=== PATIENT | female | born 1950 | race Caucasian/White ===

== ENCOUNTER 2017-01-01 17:20 | Inpatient (IN) | payer OTHER ==
[~2017-01-01] VITALS: Ht 162.6 cm; Wt 82.0 kg
[2017-01-01 19:00] VITALS: PULSE 96
[2017-01-01] MEDS ORDERED: traMADol 50 MG TAB PO ONE (20:00)
[2017-01-01] MEDS ORDERED: TRAM50TA2 PO (20:16)
[2017-01-01] MEDS ORDERED: NAPR220C2 PO (20:16)
[2017-01-01] MEDS ORDERED: ATOR20TA38 PO (20:16)
[2017-01-01 20:19] VITALS: PULSE 95
[2017-01-01 20:29] VITALS: BP 132/60; RESP 18
[2017-01-01] MEDS ORDERED: ACETAMINOPHEN 325 MG TAB PO PRN (21:00)
[2017-01-01] MEDS ORDERED: ONDANSETRON 4 MG INJ IV PRN (21:00)
[2017-01-01] MEDS ORDERED: traMADol 50 MG TAB PO PRN (21:00)
--- NOTE | 2017-01-01 21:29 | HP ---
Date/Time of Note Date/Time of Note DATE: 01/01/17 TIME: 21:05 Assessment/Plan VTE Prophylaxis VTE Prophylaxis Intervention: SCD's Assessment/Plan Chief Complaint/Hosp Course This is a 66-year-old female being admitted to the telemetry floor for: #1 symptomatic anemia: Repeat hemoglobin at our facility shows hemoglobin of 6.1. Patient is agreeable to receive a blood transfusion she understands the risks and benefits. The current time will transfuse 1 unit of packed red blood cells. She denies any vaginal bleeding or any rectal bleeding. Will order fecal occult blood. Will check iron panel. Will order a CAT scan of the chest with and without contrast secondary to patient's previous extensive smoking history and 40 pound weight loss as well as history of squamous cell skin cancer to workup for possible primary versus metastatic CA. Will consider GI/ hematology consult as indicated. Repeat hgb in the AM. #2 lung consolidations: Pneumonia versus other etiology. Patient did have elevated white blood cell count but no fevers. At the current time we will treat for possible pneumonia as indicated on the chest x-ray that was in the transfer facility. Will also order a CAT scan with and without contrast to further assess patient's lung morphology in the setting of #1 and history of 30 pack year smoking history. #3 sciatica: Patient reports that she is noticed back pain down right leg she has been taking tramadol for this and naproxen. Will hold naproxen at this time secondary to #1. This has been going on for approximately 3 months. Will order lumbar x-ray and consider further imaging if indicated as there is concern for possible CA based on #1. #4 history of squamous cell carcinoma of skin: no signs on skin at this time, please see #1. #5 Lower extremity edema: check echo #6 DVT and GI prophylaxis: SCDs, Pepcid Further treatment strategy will be implemented as per the clinical course Problems: HPI/ROS Admit Date/Time Admit Date/Time Jan 01, 2017 at 18:36 Hx of Present Illness Chief complaint: Low hemoglobin This is a 66-year-old female who presented to the emergency department [facility] and found to have low hemoglobin. She was subsequently transferred to [facility]. She reported that she had generalized weakness for approximately the past month. She states that she usually has her labs done every 3 months to monitor her liver function tests as she is taking Lipitor. She states that 3 months ago she was not told she had any abnormal hemoglobin. She states that she has had a decreased appetite over the past 3 months and has lost approximately 40 pounds. She attributes her low appetite to her low hemoglobin. She denies any vaginal bleeding or rectal bleeding. Denies any chest pain or shortness of breath. Denies any fevers. Denies ever having a colonoscopy or endoscopy done. Allergies: NKDA Medications: Naproxen, tramadol, Lipitor ROS Const: As per HPI Eyes : No pain discharge or redness or change in visual acuity ENT: No pain, sore throat, congestion, congestion, dysphagia or discharge Respiratory: Mild nonproductive cough Cardiovascular: No chest pain, palpitation, PND, or edema GI : no change in appetite, abdominal pain, nausea, vomiting, diarrhea, constipation, or change in the color his stool Genitourinary: No dysuria, hematuria, flank pain , discharge or CVA tenderness Musculoskeletal: No joint pain, back pain, neck pain, restricted range of motion in neck or joints Skin: No rash, bruising or hives Neuro: No headache, dizziness, syncope, seizure, focal weakness Endocrine: No polyuria, polydipsia, temperature intolerance Psych: No hallucination, depression, anxiety or suicidal ideation Hematology: Denies any vaginal bleeding or rectal bleeding, denies any enlarged lymph nodes PMH/Family/Social Past Medical History Squamous cell skin cancer of the right leg, sciatica Past Surgical History Squamous cell skin cancer removal, vocal cord lymph node removal Family History Significant Family History: no pertinent family hx Social History Alcohol Use: none Smoking Status: Current every day smoker (1 pack per day 30 years) Drug Use: none Exam/Review of Systems Vital Signs Vitals Vital Signs Date Time Temp Pulse Resp B/P Pulse Ox O2 Delivery O2 Flow Rate FiO2 01/01/17 20:29 98.4 91 18 132/60 95 Exam Exam General: Patient is well-developed well-nourished The patient is alert oriented -3 lying comfortably in bed. HEENT: Atraumatic, normocephalic. The pupils are equal, round and reactive. Extraocular motor are intact Neck: Supple with full range of motion. No rigidity or meningismus Chest: Nontender Lungs: Clear to auscultation bilaterally no crackles rales or wheezing Heart: Normal S1-S2, Regular rhythm and rate. No murmur, S3, or S4 Abdomen: Soft , nontender, nondistended , bowel sounds are present. No guarding no rebound tenderness , No masses or organomegaly. No costovertebral temporal angle mass Extremities: Normal to inspection, no edema no cyanosis Neurologic: Normal mental status, speech normal, cranial nerves II through XII are intact, motor and sensory are intact, no focal weakness, of note patient does appear to have repetitive facial tics Additional Comments Pertinent laboratory findings from transferring facility below, please see full report in the patient's chart. Hemoglobin 6.4, hematocrit 21.9 white blood cell count 13.1, platelet count 543 BMP within normal values. Chest x-ray: Left perihilar and right Basilar consolidation may relate to multifocal pneumonia EKG: Normal sinus rhythm at approximately [address] or T-wave abnormalities, as per ED physician documentation. Labs Result Diagram: 01/01/172025 ALO PARKINSON Jan 01, 2017 21:19
[2017-01-01] MEDS: FAMOTIDINE 20 MG TAB PO SCH (22:08)
[2017-01-01] MEDS: LEVOFLOXACIN 750MG/D5W (PMX) 150 ML IVPB SCH (22:08)
[2017-01-01 22:20] VITALS: Ht 162.6 cm; Wt 82.0 kg
[2017-01-01] MEDS: HYDROCODONE/APAP (5/325) TAB PO PRN (23:59)
[2017-01-02] VITALS (11 sets, daily range): BP systolic 114–140; BP diastolic 57–68; PULSE 90–105; RESP 18–20
[2017-01-02] MEDS: ATORVASTATIN 20 MG TAB PO SCH (08:33)
[2017-01-02] MEDS: FAMOTIDINE 20 MG TAB PO SCH ×2 (08:33→21:00)
[2017-01-02] MEDS: HYDROCODONE/APAP (5/325) TAB PO PRN ×3 (08:33→18:33)
[2017-01-02] MEDS ORDERED: IOHEXOL 300MG/ML 150 ML BTL ONE (09:27)
[2017-01-02] MEDS ORDERED: SOD CHLORIDE 0.9% 100 ML ONE (09:27)
--- NOTE | 2017-01-02 11:08 | RADRPT ---
PROCEDURE: CT Chest with contrast. CLINICAL INDICATION: Anemia, weight loss, infiltrates on chest x-ray TECHNIQUE: CT of the chest was performed on a multi-detector scanner following the uncomplicated I V administration of 90 cc of Omnipaque 300. Coronal and sagittal images were reformatted from the a [facility] data set. One or more of the following dose reduction techniques were used: automated exposure control, adjustment of the mA and/or kV according to patient size, use of iterative reconstruction technique. CTDI = 15.03 mGy. DLP = 623.18 mGy-cm. COMPARISON: None available FINDINGS: Indeterminate reticulonodular opacities are identified at the bilateral lung bases and in the medial left upper lobe. 1.6 cm nodule is identified in the perihilar left upper lobe as well (3-37). There is trace amount of left pleural fluid. No pulmonary edema or pneumothorax is identified. There is m oderate pulmonary emphysema. Bilateral bronchial wall thickening and ectasia is noted, compatible wi th chronic bronchitis. The heart size is normal, without pericardial effusion. Coronary arterial and aortic atherosclerotic calcifications are present. Enlarged subaortic/left perihilar lymph node is identified measuring 3. 6 x 2.2 cm (3-52). No axillary or supraclavicular lymphadenopathy is identified. Left adrenal gland demonstrates a 2.3 cm nodule. Lytic lesion is identified arising from L2 vertebra l body on the right, extending into adjacent paravertebral soft tissues. Additional smaller lytic le cheo is seen involving T6 vertebral body, extending into the right pedicle. There is severe compress ion fracture of T2 - underlying osseous lesion is not excluded. Additional lytic lesions are seen in volving right first rib anteriorly, left third rib anteriorly, left seventh rib laterally, and infer ior left scapular tip. Scattered solid subcutaneous nodules are identified measuring up to 1.6 cm in the upper left back (3-28). IMPRESSION: 1. 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 There is acute to subacute sever e compression fracture of T2, possibly pathologic fracture. 2. Indeterminate reticulonodular pulmonary opacities are identified bilaterally, possibly represent ing bronchiolitis/bronchopneumonia, though lymphangitic spread of tumor is not excluded. 3. Enlarged subaortic/left perihilar lymph node is identified, likely additional metastatic disease . 4. Left adrenal nodule/mass is identified, further concerning for metastatic disease. 5. Scattered solid subcutaneous nodules are identified, further concerning for metastatic disease. 6. Moderate pulmonary emphysema and findings of chronic bronchitis are identified. 7. Coronary arterial and aortic atherosclerotic calcifications are present. RPTAT: AAQQ .Ezequiel Polanco MD, MD Date Time Electronically viewed and signed by .Ezequiel Polanco MD, on 01/02/2017 11:07 .R/
[2017-01-02] MEDS ORDERED: SOD CHLORIDE 0.9% 250 ML IV* ONE (11:49)
--- NOTE | 2017-01-02 11:59 | PN ---
Date/Time of Note Date/Time of Note DATE: 01/02/17 TIME: 11:59 Assessment/Plan VTE Prophylaxis VTE Prophylaxis Intervention: SCD's Lines/Catheters IV C[facility]ter Type (from [facility] Urinary Cath still in place: No Assessment/Plan Chief Complaint/Hosp Course 1. Symptomatic anemia. Etiology unclear. Iron panel showing iron deficiency. Start iron supplements. Status post PRBC transfusion. Continue PRBC transfusions as appropriate. The patient's CT scan showing evidence of numerous lytic lesions along with left adrenal nodule/mass, enlarged subaortic and left perihilar lymph nodes suggestive of metastatic disease. Obtain oncology evaluation. 2. Intermediate reticulonodular pulmonary opacities suggesting bronchiolitis/ bronchopneumonia. Continue antibiotics. 3. Pulmonary emphysema. The patient is a chronic smoker. Will start the patient on as needed inhaled bronchodilators. 4. Acute to subacute severe compression fracture of T2. Possibly pathological fracture. The patient will be provided with adequate pain control. Obtain neurosurgical evaluation. 5. Fluids, electrolytes, and nutrition. Regular diet. 6. DVT prophylaxis. Bilateral sequential compression devices. 7. Plan. Transfuse 1 more unit of PRBC. Start IV iron supplements. Obtain oncology consult. Obtain neurosurgery consult. Case discussed with Dr. Bobby. The plan of care was explained to the patient in detail. Problems: Subjective 24 Hr Interval Summary Free Text/Dictation Continues to have lower back pain. Exam/Review of Systems Vital Signs Vitals Vital Signs Date Time Temp Pulse Resp B/P Pulse Ox O2 Delivery O2 Flow Rate FiO2 01/02/17 11:37 98.4 92 19 124/61 96 Intake and Output 01/01/17 01/01/17 01/02/17 15:00 23:00 07:00 Intake Total 1050 ml Balance 1050 ml Exam General: Adequately build 66 year-old female lying in bed in no apparent distress. HEENT: Normocephalic, atraumatic. Eyes: Anicteric sclerae, conjunctivae clear. ENT: Nasal septum midline, oral mucosa moist. Neck supple, no JVD noticed. Respiratory: Bilaterally diminished breath sounds. No use of accessory muscles of respiration. Cardiovascular: S1, S2 heard. No murmurs or gallops. Abdomen: Soft, nontender, and nondistended. Bowel sounds positive in all 4 quadrants. Genitourinary: Deferred. Extremities: No cyanosis, no clubbing, no edema. Peripheral pulses palpable. Neurologic: Cranial nerves II through XII grossly intact. The patient is awake, alert, and oriented. Skin: Normal skin turgor. No skin rashes. Results Result Diagram: 01/02/17 0729 01/02/17 0730 Results 24 hrs Laboratory Tests Test 01/01/17 20:26 01/02/17 07:29 01/02/17 07:30 White Blood Count 13.4 H 13.6 H Red Blood Count 2.36 L 2.71 L Hemoglobin 6.1 *L 7.1 L Hematocrit 20.9 L 23.7 L Mean Corpuscular Volume 88.6 87.5 Mean Corpuscular Hemoglobin 25.8 L 26.2 L Mean Corpuscular Hemoglobin Concent 29.2 L 30.0 L Red Cell Distribution Width 16.2 H 15.8 H Platelet Count 501 H 453 H Mean Platelet Volume 9.4 9.6 Neutrophils % 80.3 H Segmented Neutrophils % (Manual) 79 H Lymphocytes % 10.3 L Lymphocytes % (Manual) 18 Monocytes % 7.9 Monocytes % (Manual) 3 Eosinophils % 0.7 Basophils % 0.1 Nucleated Red Blood Cells % 2 H 1.1 H Neutrophils # 10.9 H Absolute Lymphocytes (Manual) 2.4 Lymphocytes # 1.4 Monocytes # 1.1 H Absolute Monocytes (Manual) 0.4 Eosinophils # 0.1 Basophils # 0.0 Nucleated Red Blood Cells # 0.2 H Platelet Estimate INCREASED Polychromasia 2+ Hypochromasia 2+ Anisocytosis 2+ Microcytosis 1+ Sodium Level 139 137 Potassium Level 3.8 4.3 Chloride Level 107 105 Carbon Dioxide Level 23 23 Anion Gap 13 13 Blood Urea Nitrogen 14 11 Creatinine 0.73 0.65 Glucose Level 84 77 Calcium Level 9.1 9.0 Hemoglobin A1c 5.2 Triglycerides Level 119 Cholesterol Level 115 LDL Cholesterol, Calculated 61 HDL Cholesterol 30 L Cholesterol/HDL Ratio 3.8 Thyroid Stimulating Hormone (TSH) 0.963 Magnesium Level 1.8 Iron Level 15 L Total Iron Binding Capacity 360 Percent Iron Saturation 4 L Total Bilirubin 0.5 Direct Bilirubin 0.00 Indirect Bilirubin 0.5 Aspartate Amino Transf (AST/SGOT) 23 Alanine Aminotransferase (ALT/SGPT) 31 Alkaline Phosphatase 160 H Total Protein 6.2 Albumin 3.1 L Globulin 3.10 Albumin/Globulin Ratio 1.00 Carcinoembryonic Antigen Pending HIV (1&2) Antibody NEGATIVE Medications Medications Current Medications Ondansetron HCl (Zofran Inj) 4 mg Q6H PRN IV NAUSEA AND/OR VOMITING; Start at 21:00 Acetaminophen (Tylenol Tab) 650 mg Q6H PRN PO PAIN LEVEL 1-3 OR FEVER; Start 01/01/17 at 21:00 Acetaminophen/ Hydrocodone Bitart ([place] (5/325)) 1 tab Q6H PRN PO PAIN LEVEL 4 -6 Last administered on 01/02/17 08:33; Admin Dose 1 TAB; Start 01/01/17 at 21:00 Famotidine (Pepcid) 20 mg Q12 PO Last administered on 01/02/17 08:33; Admin Dose 20 MG; Start 01/01/17 at 21:00 Atorvastatin Calcium (Lipitor) 40 mg DAILY PO Last administered on 01/02/17 08:33; Admin Dose 40 MG; Start 01/02/17 at 09:00 Tramadol HCl 50 mg 50 mg BID PRN PO PAIN Last administered on 01/02/17 04:54 ; Admin Dose 50 MG; Start 01/01/17 at 21:00 Levofloxacin/ Dextrose 150 ml @ 100 mls/hr Q24H IVPB Last administered on 22:08; Admin Dose 100 MLS/HR; Start 01/01/17 at 21:30 Sodium Chloride (NS) 250 ml @ 0 mls/hr Q0M ONCE IV* ; Start 01/02/17 at 11:49; Stop 01/02/17 at 11:50; Status UNV Furosemide (Lasix) 10 mg ONCE IV ; Start 01/02/17 at 12:00; Stop 01/03/17 at 11:59; Status UNV ROXANN JACKSON NP Jan 02, 2017 11:59
[2017-01-02] MEDS ORDERED: traMADol 50 MG TAB PO PRN (12:00)
[2017-01-02] MEDS ORDERED: FUROSEMIDE 40 MG INJ IV SCH (12:00)
[2017-01-02] MEDS ORDERED: ALBUTEROL/IPRATROPIUM (NEB) 3 ML AMP HHN PRN (12:00)
--- NOTE | 2017-01-02 12:11 | RADRPT ---
PROCEDURE: XR Lumbar Spine. CLINICAL INDICATION: Lumbar spine pain, sciatica. TECHNIQUE: AP, lateral, and cone-down lateral view of the lumbar spine were obtained. COMPARISON: No prior studies are available for comparison. FINDINGS: There is 3-4 mm of anterolisthesis of L4 on L5 due to moderate facet spondylosis at this level. Ther e is a moderate left convex scoliosis centered at L2-3. There are anterior osteophytes from L1-S1 wi th moderate narrowing of the intervertebral disc spaces at L1-2 and L2-3 and mild disc-space narrowi ng at L4-5 and L5-S1. There are moderate associated discogenic endplate changes at L1-2 and L2-3. T he vertebral body heights are maintained. The marrow density is in appearance. There is moderate f acet spondylosis at L4-5 and L5-S1 with suggestion of neural foraminal narrowing at these levels. T he remaining neural foramina appear patent. The paraspinal soft tissues unremarkable. There is no evidence of fracture. There is no evidence of fracture. There are moderate degenerative changes of the interspinous articulations from L2-L5. IMPRESSION: 1. Moderate facet spondylosis at L4-5 with grade 1 anterolisthesis. 2. Moderate spondylosis/degenerative enthesopathy at L1-2 and L2-3. 3. Moderate facet spondylosis at L4-5 and L5-S1 with suggestion of neural foraminal narrowing at th martina levels. 4. No evidence of fracture. 5. Moderate left convex scoliosis centered at L2-3. RPTAT: HGAS .Charles Hawk MD, Date Time Electronically viewed and signed by .Charles Hawk MD, on 01/02/2017 12:11 .S/
--- NOTE | 2017-01-02 13:54 | RADRPT ---
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 Physician: ALO PARKINSON Quality: Good Procedures: Transthoracic echocardiogram with complete 2D, M-Mode, and doppler examination. Indications: FATIGUE. 2D/M Mode Doppler Measurement Value Normal Ranges Measurement Value Normal Ranges AoR Diam MM 3.0 cm ALICIA Vmax 1.8 cm2 ACS MM 1.8 cm ALICIA VTI 1.8 cm2 LA/Ao MM 1.2 AV Peak German 1.8 m/sec LA Dimen MM 3.7 cm AV Peak PG 13.1 mmHg LVIDd 2D 4.5 3.5 - 5.6 cm LVOT Peak German 1.1 m/sec LVIDs 2D 3.2 2.1 - 4.1 cm LVOT Peak PG 5.0 mmHg LVPWd 2D 1.0 0.6 - 1.1 cm MV E Peak German 0.9 m/sec IVSd 2D 1.1 0.6 - 1.1 cm MV A Peak German 1.3 m/sec EDV 2D 91.3 cm3 MV E/A 0.7 ESV 2D 32.5 cm3 MV Decel Time 190 msec LVOT Diam 1.9 cm MV Decel [place] 5 MV E/A 0.7 TR Peak German 3.0 m/sec TR Peak PG 37.1 mmHg Findings Left Ventricle: Normal left ventricular systolic function. Normal left ventricular cavity size. Normal left ventricular wall thickness. Ejection fraction is visually estimated based on marie`s method at 62 %. Tissue Doppler/Mitral Doppler indices are consistent with impaired relaxation (Stage I diastolic dysfunction). Right Ventricle: Normal right ventricular size. Normal right ventricular systolic function. Left Atrium: The left atrium is normal in size. Right Atrium: The right atrium is normal in size. Mitral Valve: Mild mitral valve regurgitation. Aortic Valve: No significant aortic stenosis or insufficiency. Aortic sclerosis without stenosis. Tricuspid Valve: Estimated peak PA systolic pressure 53 mmHg. There is mild to moderate tricuspid regurgitation. Pulmonic Valve: Normal pulmonic valve appearance. Pericardium: Normal pericardium with no significant pericardial effusion. Aorta: Normal aortic root. IVC: Normal size and normal respiratory collapse consistent with normal right atrial pressure. Conclusions 1.Normal left ventricular systolic function. Normal left ventricular cavity size. Normal left ventricular wall thickness. Ejection fraction is visually estimated based on marie`s method at 62 %. Tissue Doppler/Mitral Doppler indices are consistent with impaired relaxation (Stage I diastolic dysfunction). 2.Mild mitral valve regurgitation. 3.No significant aortic stenosis or insufficiency. Aortic sclerosis without stenosis. 4.Estimated peak PA systolic pressure 53 mmHg. There is mild to moderate tricuspid regurgitation. Electronically Signed By: Hi Morales 02-Jan-2017 13:53:48 -0700 Patient Name: DOMINGUEZ REDDY Study Date: 02-Jan-[id number]
--- NOTE | 2017-01-02 13:54 | RADRPT ---
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 Physician: ALO PARKINSON Quality: Good Procedures: Transthoracic echocardiogram with complete 2D, M-Mode, and doppler examination. Indications: FATIGUE. 2D/M Mode Doppler Measurement Value Normal Ranges Measurement Value Normal Ranges AoR Diam MM 3.0 cm ALICIA Vmax 1.8 cm2 ACS MM 1.8 cm ALICIA VTI 1.8 cm2 LA/Ao MM 1.2 AV Peak German 1.8 m/sec LA Dimen MM 3.7 cm AV Peak PG 13.1 mmHg LVIDd 2D 4.5 3.5 - 5.6 cm LVOT Peak German 1.1 m/sec LVIDs 2D 3.2 2.1 - 4.1 cm LVOT Peak PG 5.0 mmHg LVPWd 2D 1.0 0.6 - 1.1 cm MV E Peak German 0.9 m/sec IVSd 2D 1.1 0.6 - 1.1 cm MV A Peak German 1.3 m/sec EDV 2D 91.3 cm3 MV E/A 0.7 ESV 2D 32.5 cm3 MV Decel Time 190 msec LVOT Diam 1.9 cm MV Decel [place] 5 MV E/A 0.7 TR Peak German 3.0 m/sec TR Peak PG 37.1 mmHg Findings Left Ventricle: Normal left ventricular systolic function. Normal left ventricular cavity size. Normal left ventricular wall thickness. Ejection fraction is visually estimated based on marie`s method at 62 %. Tissue Doppler/Mitral Doppler indices are consistent with impaired relaxation (Stage I diastolic dysfunction). Right Ventricle: Normal right ventricular size. Normal right ventricular systolic function. Left Atrium: The left atrium is normal in size. Right Atrium: The right atrium is normal in size. Mitral Valve: Mild mitral valve regurgitation. Aortic Valve: No significant aortic stenosis or insufficiency. Aortic sclerosis without stenosis. Tricuspid Valve: Estimated peak PA systolic pressure 53 mmHg. There is mild to moderate tricuspid regurgitation. Pulmonic Valve: Normal pulmonic valve appearance. Pericardium: Normal pericardium with no significant pericardial effusion. Aorta: Normal aortic root. IVC: Normal size and normal respiratory collapse consistent with normal right atrial pressure. Conclusions 1.Normal left ventricular systolic function. Normal left ventricular cavity size. Normal left ventricular wall thickness. Ejection fraction is visually estimated based on marie`s method at 62 %. Tissue Doppler/Mitral Doppler indices are consistent with impaired relaxation (Stage I diastolic dysfunction). 2.Mild mitral valve regurgitation. 3.No significant aortic stenosis or insufficiency. Aortic sclerosis without stenosis. 4.Estimated peak PA systolic pressure 53 mmHg. There is mild to moderate tricuspid regurgitation. Electronically Signed By: Hi Morales 02-Jan-2017 13:53:48 -0700 Patient Name: DOMINGUEZ REDDY Study Date: 02-Jan-[id number]
[2017-01-02] MEDS: SOD FERRIC GLUC COMPLX 125 MG in SOD CHLORIDE 0.9% 100 ML IVPB SCH (15:16)
--- NOTE | 2017-01-02 17:55 | RADRPT ---
PROCEDURE: MR Thoracic Spine with and without contrast CLINICAL INDICATION: T2 fracture. Back pain radiating to both lower extremities. COMPARISON: CT 01/02/2017. TECHNIQUE: Localizer. Sagittal T2. The patient terminated the examination. Early prior to administr ation of intravenous contrast. Images acquired on a 3.0 Blessing magnet. FINDINGS: Alignment: Normal. Vertebral bodies: T2 compression fracture with approximately a 66% height loss. 3 mm retropulsion r esults in mild central canal narrowing. Bone marrow: Abnormal STIR hyperintense signal within the C5, T6, T9, T12, and L2 vertebral bodies. Discs: Normal height and signal. Spinal cord: Normal. No suspicious enhancement. Degenerative change: Between C3-C4 and C6-C7, small disc osteophyte complexes results in mild to mod erate central canal narrowing in varying degrees of foraminal narrowing. Paraspinal musculature: Normal. Visualized chest and abdomen: Please refer to chest CT from 01/02/2017 for additional details Additional comment: None. IMPRESSION: Limited examination terminated early by the patient. 1. Abnormal bone marrow signal within C5, C6, T9, T12, and L2 suspicious for widespread bone metasta ses. 2. L2 vertebral body fracture with about 66% height loss and 3 mm retropulsion resulting in mild c entral canal narrowing. RPTAT: HH Physician Alexander Date Time Electronically viewed and signed by Physician Alexander on 01/02/2017 17:55 /
--- NOTE | 2017-01-02 18:15 | RADRPT ---
PROCEDURE: MR Lumbar Spine without contrast CLINICAL INDICATION: T2 fracture and metastases. COMPARISON: CT 01/02/2017. Radiograph 01/02/2017. TECHNIQUE: Multiplanar multi-sequence MRI of the lumbar spine. Images acquired on a 3.0 Blessing magne t. The patient terminated the examination prior to administration of intravenous contrast. FINDINGS: Segmentation: For this report, the last well formed disc is labeled L5-S1. Alignment: Slight levoconvex curvature of the lumbar spine which may be positional in nature. Vertebral bodies: No acute fracture or vertebral body height loss. Superior L2 and L3 endplate Schm orl's nodes. Bone marrow: Bone marrow signal within L1 spinous process as well as the L2 and L3 vertebral bodies , consistent with metastases. There is also abnormal bone marrow signal within both iliac bones and the left sacral ala consistent with metastases. There is diffusely low T1 signal within the remainin g bone marrow, a finding often associated with degenerative or replacing process. Discs: Disc desiccation with height loss between L1-L2 and L3-L4 Distal cord and conus: Tubular high T1 signal within the cauda equina which may represent a vessel o r a tiny by the filum (series 7, image 20) The conus terminates at lower L1. Cauda equina: Normal. Degenerative change: T12-L1 : No disc herniation or facet arthropathy. No central canal or foraminal narrowing. L1-L2 : Mild anterior endplate spurring. 2 mm disc bulge without significant central canal or forami nal narrowing. L2-L3 : Mild anterior endplate spurring. 3 mm disc bulge with mild facet arthropathy and joint effus ions. No significant central canal narrowing. Mild right foraminal narrowing. L3-L4 : 1 mm disc bulge, mild right facet arthropathy with ligamentum flavum laxity, and dorsal epid ural fat. No significant central canal or foraminal narrowing. L4-L5 : 1 mm disc bulge with moderate bilateral facet arthropathy, right ligamentum flavum laxity, a nd dorsal epidural fat. No significant central canal or foraminal narrowing L5-S1 : 2 mm disc bulge and moderate bilateral facet arthropathy. No significant central canal or fo raminal narrowing Paraspinal musculature: Normal. Visualized abdomen and pelvis: Normal. Additional comment: Circumferential epidural fat tapers the spinal canal below S1. IMPRESSION: Limited examination terminated early by the patient. No intravenous contrast was administered. 1. Bone metastases within the L2 and L3 vertebral bodies, L1 spinous process, left sacral ala, and b oth iliac bones. 2. Diffusely abnormal bone marrow signal which can be seen in the degenerative replacing process see s. RPTAT: PP Physician Alexander Date Time Electronically viewed and signed by Physician Alexander on 01/02/2017 18:14 LG/
--- NOTE | 2017-01-02 20:57 | CONS ---
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 this has been ordered -given the wide spread of this disease and high possibility of underlying lung ca, will check brain MRI to rule out brain mets -further treatment recommendations will depend on final pathology #T2 pathologic compression fracture -neurosurgery has been consulted -pt may benefit from kyphoplasty -will also consider radiation if symptomatic #Pneumonia -Intermediate reticulonodular pulmonary opacities suggesting bronchiolitis/bronchopneumonia. -Continue antibiotics. #Emphysema -cont bronchodialtors Problems: Consultation Date/Type/Reason Admit Date/Time Jan 01, 2017 at 18:36 Date of Consultation: Jan 02, 2017 Type of Consultation: oncology Reason for Consultation anemia/bony lesions Referring Provider: ROXANN JACKSON NP Hx of Present Illness 66-year-old female who presented to the emergency department [facility] with generalized weakness for 1 mo and was found to be profoundly anemia. For insurance reasons, she was subsequently transferred to [facility]. Per records, pt has labs done every 3 months to monitor her LFTs while on lipitor. She was not told of any abnormal labs 3 months ago. She also endorsed decreased appetite over the past 3 months and has lost approximately 40 pounds. Since admission she has had several scans done which suggest widespread bone metastasis. In the ER pt was found with a Hg 6.1 and has since been transfused 2 units of PRBCs. Hg is now up to 7. -Thoracic spine MRI demonstrates . Abnormal bone marrow signal within C5, C6, T9 , T12, and L2 suspicious for widespread bone metastases. Also seen is a T2 vertebral bony fracture with mild central canal narrowing. -Lumbar spine MRI demonstrates Bone metastases within the L2 and L3 vertebral bodies, L1 spinous process, left sacral ala, and both iliac bones. -CT Chest also demonstrates 1. Numerous osseous metastases 2. potential lymphangitic spread of tumor through the lungs 3. enlarged subaortic/left perihilar lymph nodes 3.L Adrenal mass 4. Scattered subcutaneous nodules. 5. acute to subacute severe compression fracture of T2, possibly pathologic fracture. 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, sciatica hyperlipidemia Past Surgical History Squamous cell skin cancer removal, vocal cord lymph node removal Family History Significant Family History: no pertinent family hx Social History Alcohol Use: none Smoking Status: Current every day smoker (1 pack per day 30 years) Drug Use: none Exam/Review of Systems Vital Signs Vitals Vital Signs Date Time Temp Pulse Resp B/P Pulse Ox O2 Delivery O2 Flow Rate FiO2 01/02/17 19:48 98.1 93 19 93 01/02/17 14:45 21 Intake and Output 01/01/17 01/01/17 01/02/17 15:00 23:00 07:00 Intake Total 1050 ml Balance 1050 ml Exam Constitutional: alert, oriented Psych: anxiety, depression Head: normocephalic Eyes: nl conjunctiva ENMT: nl external ears & nose Neck: supple Respiratory: diminished breath sounds Cardiovascular: regular rate and rhythm Gastrointestinal: soft Musculoskeletal: nl extremities to inspection Results Result Diagram: 01/02/17 0729 01/02/17 0730 Results 24 hrs Laboratory Tests Test 01/02/17 07:29 01/02/17 07:30 White Blood Count 13.6 H Red Blood Count 2.71 L Hemoglobin 7.1 L Hematocrit 23.7 L Mean Corpuscular Volume 87.5 Mean Corpuscular Hemoglobin 26.2 L Mean Corpuscular Hemoglobin Concent 30.0 L Red Cell Distribution Width 15.8 H Platelet Count 453 H Mean Platelet Volume 9.6 Neutrophils % 80.3 H Lymphocytes % 10.3 L Monocytes % 7.9 Eosinophils % 0.7 Basophils % 0.1 Nucleated Red Blood Cells % 1.1 H Neutrophils # 10.9 H Lymphocytes # 1.4 Monocytes # 1.1 H Eosinophils # 0.1 Basophils # 0.0 Nucleated Red Blood Cells # 0.2 H Hemoglobin A1c 5.2 Ferritin 15.0 Triglycerides Level 119 Cholesterol Level 115 LDL Cholesterol, Calculated 61 HDL Cholesterol 30 L Cholesterol/HDL Ratio 3.8 Thyroid Stimulating Hormone (TSH) 0.963 Sodium Level 137 Potassium Level 4.3 Chloride Level 105 Carbon Dioxide Level 23 Anion Gap 13 Blood Urea Nitrogen 11 Creatinine 0.65 Glucose Level 77 Calcium Level 9.0 Magnesium Level 1.8 Iron Level 15 L Total Iron Binding Capacity 360 Percent Iron Saturation 4 L Total Bilirubin 0.5 Direct Bilirubin 0.00 Indirect Bilirubin 0.5 Aspartate Amino Transf (AST/SGOT) 23 Alanine Aminotransferase (ALT/SGPT) 31 Alkaline Phosphatase 160 H Total Protein 6.2 Albumin 3.1 L Globulin 3.10 Albumin/Globulin Ratio 1.00 Carcinoembryonic Antigen 433.0 H HIV (1&2) Antibody NEGATIVE Medications Medications Current Medications Ondansetron HCl (Zofran Inj) 4 mg Q6H PRN IV NAUSEA AND/OR VOMITING; Start at 21:00 Acetaminophen (Tylenol Tab) 650 mg Q6H PRN PO PAIN LEVEL 1-3 OR FEVER; Start 01/01/17 at 21:00 Acetaminophen/ Hydrocodone Bitart ([place] (5/325)) 1 tab Q6H PRN PO PAIN LEVEL 4 -6 Last administered on 01/02/17 18:33; Admin Dose 1 TAB; Start 01/01/17 at 21:00 Famotidine (Pepcid) 20 mg Q12 PO Last administered on 01/02/17 08:33; Admin Dose 20 MG; Start 01/01/17 at 21:00 Atorvastatin Calcium 40 mg 40 mg DAILY PO Last administered on 01/02/17 08:33 ; Admin Dose 40 MG; Start 01/02/17 at 09:00 Levofloxacin/ Dextrose (Levaquin 750 Mg/ D5W 150 ml (Pmx)) 150 ml @ 100 mls/hr Q24H IVPB Last administered on 01/01/17 22:08; Admin Dose 100 MLS/HR; Start 01/01/17 at 21:30 Furosemide (Lasix) 10 mg ONCE IV ; Start 01/02/17 at 12:00; Stop 01/03/17 at 11:59 Tramadol HCl 50 mg 50 mg Q6H PRN PO Pain Last administered on 01/02/17 16:31 ; Admin Dose 50 MG; Start 01/02/17 at 12:00 Ferric Sodium Gluconate Complex/ Sodium Chloride (Ferrlecit/NS) 110 ml @ 110 mls/hr Q24H IVPB Last administered on 01/02/17t 15:16; Admin Dose 110 MLS/HR; Start 01/02/17 at 14:00; Stop 01/06/17 at 14:59 DARYL AGEE M.D. Jan 02, 2017 20:55 DARYL AGEE M.D. Jan 02, 2017 20:55
[2017-01-02] MEDS: LEVOFLOXACIN 750MG/D5W (PMX) 150 ML IVPB SCH (21:03)
[2017-01-03] VITALS (11 sets, daily range): BP systolic 102–120; BP diastolic 55–62; PULSE 90–100; RESP 18–20
[2017-01-03] MEDS: HYDROCODONE/APAP (5/325) TAB PO PRN ×2 (00:11→06:01)
--- NOTE | 2017-01-03 07:00 | CONS ---
Date/Time of Note Date/Time of Note DATE: 01/03/17 TIME: 06:55 Assessment/Plan Assessment/Plan Additional Assessment/Plan Will return to speak to patient concerning pain management. 66-year-old female with evidence of widespread metastasis, she has been seen and examined with Dr. Emmie Marlow but is clearly confused and does not recall conversations with any clinician. Acute and chronic pain syndrome right lower extremity secondary to pathological fracture Confusion Moderate obesity Hyperlipidemia We will review her current pain control medication and adjust as needed, MRI was ordered which I believe was of her brain however patient came claustrophobic I will reorder CT scan of her head rule out metastasis. Will confer with Chase Rosario NP. Patient states she has no first-degree relatives she is not , no children states that she has roommates. Why she is very unclear answer social history. Consultation Date/Type/Reason Admit Date/Time Jan 01, 2017 at 18:36 Type of Consultation: Pain management Hx of Present Illness All of the information is taken from patient's medical records patient currently down having a imaging study. She is a 66-year-old female who presented to the emergency room [facility] and was found to have a low hemoglobin level. Imaging study was consistent with multiple lytic lesions adrenal glands, periaortic lymphadenopathy and bryn- hilar lesions. CT scan of the chest is also suspicious for metastasis. Patient is being seen by oncology pending consultation. I am asked to see patient only in pain management, no issues concerning palliation of care will be addressed until oncology has evaluated patient. Return to see patient she is anxious to leave the hospital and states that she has not spoken to clinicians since she has been here however in further questioning she states that she has seen doctors but has not been told why she is hospitalized. She continues to say that she has right lower leg pain but I had to ask repeated questions about pain management until she told me that she has had this discomfort for 3 months prior to this hospitalization. States the pain has been increasing in severity with sudden onset describes as a lancinating type of pain alternating with squeezing. 10/10 with some alleviation with tramadol and acetaminophen but minimal improvement. Pain goes only to her knee does not radiate down into her foot she states there is no loss of strength or sensation. She denies nausea vomiting constipation mental cloudiness however patient is repeating her questions and seems somewhat confused and histrionic. Denies drowsiness there is no history of drug addiction, she is a smoker denies alcohol use. She does not appear to be unkempt she is not requesting early renewals of her current pain control medications I do not get the impression that she is using pain control medication response to anxiety but again she is clearly confused. The pain has affected her physical functioning mood sleeping patterns as she is mostly complaining of severe pain at night overall function is affected, she states that she limps. This is in contrast to what she had told me initially. And this is gone on for 3 months prior to this presentation. 1. Symptomatic anemia. Etiology unclear. Iron panel showing iron deficiency. Start iron supplements. Status post PRBC transfusion. Continue PRBC transfusions as appropriate. The patient's CT scan showing evidence of numerous lytic lesions along with left adrenal nodule/mass, enlarged subaortic and left perihilar lymph nodes suggestive of metastatic disease. Obtain oncology evaluation. 2. Intermediate reticulonodular pulmonary opacities suggesting bronchiolitis/ bronchopneumonia. Continue antibiotics. 3. Pulmonary emphysema. The patient is a chronic smoker. We will start the patient on as needed inhaled bronchodilators. 4. Acute to subacute severe compression fracture of T2. Possibly pathological fracture. The patient will be provided with adequate pain control. Obtain neurosurgical evaluation. 5. Fluids, electrolytes, and nutrition. Regular diet. 6. DVT prophylaxis. Bilateral sequential compression devices. 7. Plan. Transfuse 1 more unit of PRBC. Start IV and supplements. Obtain oncology consult. Obtain neurosurgery consult. Case discussed with Dr. Bobby. Constitutional: other (weakness), poor po Eyes: no complaints Respiratory: no complaints Cardiovascular: lightheadedness Gastrointestinal: decreased appetite Genitourinary: no complaints Musculoskeletal: bone/joint pain Skin: no complaints Neurologic: no complaints Psychological: anxiety, depression Social History Alcohol Use: none Smoking Status: Current every day smoker (1 pack per day 30 years) Drug Use: none Exam/Review of Systems Vital Signs Vitals Vital Signs Date Time Temp Pulse Resp B/P Pulse Ox O2 Delivery O2 Flow Rate FiO2 01/03/17 04:00 90 01/03/17 03:46 98.5 20 107/55 93 01/02/17 14:45 21 Intake and Output 01/02/17 01/02/17 01/03/17 15:00 23:00 07:00 Intake Total 800 ml Balance 800 ml Exam Constitutional: other Psych: confusion (Confused), other (Histrionic and repeats questions) Head: atraumatic, normocephalic, No hematomas, No lacerations, No other Neck: No bruits, No jvd, No masses, No non-tender, No nuchal rigidity, No other , No supple, No thyromegaly Respiratory: diminished breath sounds (Without rales rhonchi wheezing rubs) Cardiovascular: nl pulses, regular rate and rhythm, No S3, No S4, No bruits, No diastolic murmur, No edema, No gallop, No irregular rhythm, No jugular venous distention (JVD), No murmurs/extra sounds, No other, No rub, No systolic murmur Gastrointestinal: nl liver, spleen, non-tender, soft, No ascites, No bowel sounds, No distended, No firm, No hepatomegaly, No mass , No other, No rebound or guarding, No splenomegaly, No surgical scars, No tender 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: 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, confused, nl speech, nl strength Results Result Diagram: 01/02/17 0729 01/02/17 0730 Results 24 hrs Laboratory Tests Test 01/02/17 07:29 01/02/17 07:30 01/02/17 22:44 White Blood Count 13.6 H Red Blood Count 2.71 L Hemoglobin 7.1 L Hematocrit 23.7 L Mean Corpuscular Volume 87.5 Mean Corpuscular Hemoglobin 26.2 L Mean Corpuscular Hemoglobin Concent 30.0 L Red Cell Distribution Width 15.8 H Platelet Count 453 H Mean Platelet Volume 9.6 Neutrophils % 80.3 H Lymphocytes % 10.3 L Monocytes % 7.9 Eosinophils % 0.7 Basophils % 0.1 Nucleated Red Blood Cells % 1.1 H Neutrophils # 10.9 H Lymphocytes # 1.4 Monocytes # 1.1 H Eosinophils # 0.1 Basophils # 0.0 Nucleated Red Blood Cells # 0.2 H Hemoglobin A1c 5.2 Ferritin 15.0 18.1 Triglycerides Level 119 Cholesterol Level 115 LDL Cholesterol, Calculated 61 HDL Cholesterol 30 L Cholesterol/HDL Ratio 3.8 Thyroid Stimulating Hormone (TSH) 0.963 Sodium Level 137 Potassium Level 4.3 Chloride Level 105 Carbon Dioxide Level 23 Anion Gap 13 Blood Urea Nitrogen 11 Creatinine 0.65 Glucose Level 77 Calcium Level 9.0 Magnesium Level 1.8 Iron Level 15 L 195 #H Total Iron Binding Capacity 360 379 Percent Iron Saturation 4 L 51 Total Bilirubin 0.5 Direct Bilirubin 0.00 Indirect Bilirubin 0.5 Aspartate Amino Transf (AST/SGOT) 23 Alanine Aminotransferase (ALT/SGPT) 31 Alkaline Phosphatase 160 H Total Protein 6.2 Albumin 3.1 L Globulin 3.10 Albumin/Globulin Ratio 1.00 Carcinoembryonic Antigen 433.0 H HIV (1&2) Antibody NEGATIVE Absolute Reticulocyte Count 0.118 H Percent Reticulocyte Count 3.5 H Lactate Dehydrogenase Pending Vitamin B12 Level 723 Folate 19.1 Medications Medications Current Medications Ondansetron HCl (Zofran Inj) 4 mg Q6H PRN IV NAUSEA AND/OR VOMITING; Start at 21:00 Acetaminophen (Tylenol Tab) 650 mg Q6H PRN PO PAIN LEVEL 1-3 OR FEVER; Start 01/01/17 at 21:00 Acetaminophen/ Hydrocodone Bitart ([place] (5/325)) 1 tab Q6H PRN PO PAIN LEVEL 4 -6 Last administered on 01/03/17 06:01; Admin Dose 1 TAB; Start 01/01/17 at 21:00 Famotidine (Pepcid) 20 mg Q12 PO Last administered on 01/02/17 21:00; Admin Dose 20 MG; Start 01/01/17 at 21:00 Atorvastatin Calcium 40 mg 40 mg DAILY PO Last administered on 01/02/17 08:33 ; Admin Dose 40 MG; Start 01/02/17 at 09:00 Levofloxacin/ Dextrose (Levaquin 750 Mg/ D5W 150 ml (Pmx)) 150 ml @ 100 mls/hr Q24H IVPB Last administered on 01/02/17 21:03; Admin Dose 100 MLS/HR; Start 01/01/17 at 21:30 Furosemide (Lasix) 10 mg ONCE IV Last administered on 01/02/17 21:03; Admin Dose 10 MG; Start 01/02/17 at 12:00; Stop 01/03/17 at 11:59 Tramadol HCl 50 mg 50 mg Q6H PRN PO Pain Last administered on 01/02/17 16:31 ; Admin Dose 50 MG; Start 01/02/17 at 12:00 Ferric Sodium Gluconate Complex/ Sodium Chloride (Ferrlecit/NS) 110 ml @ 110 mls/hr Q24H IVPB Last administered on 01/02/17t 15:16; Admin Dose 110 MLS/HR; Start 01/02/17 at 14:00; Stop 01/06/17 at 14:59 FLAVIO KIM Jan 03, 2017 07:00
--- NOTE | 2017-01-03 07:37 | CONS ---
Date/Time of Note Date/Time of Note DATE: 01/03/17 TIME: 07:36 Assessment/Plan Assessment/Plan Chief Complaint/Hosp Course All of the information is taken from patient's medical records patient currently down having a imaging study. She is a 66-year-old female who presented to the emergency room [facility] and was found to have a low hemoglobin level. Imaging study was consistent with multiple lytic lesions adrenal glands, periaortic lymphadenopathy and bryn- hilar lesions. CT scan of the chest is also suspicious for metastasis. Patient is being seen by oncology pending consultation. I am asked to see patient only in pain management, no issues concerning palliation of care will be addressed until oncology has evaluated patient. Return to see patient she is anxious to leave the hospital and states that she has not spoken to clinicians since she has been here however in further questioning she states that she has seen doctors but has not been told why she is hospitalized. She continues to say that she has right lower leg pain but I had to ask repeated questions about pain management until she told me that she has had this discomfort for 3 months prior to this hospitalization. States the pain has been increasing in severity with sudden onset describes as a lancinating type of pain alternating with squeezing. 10/10 with some alleviation with tramadol and acetaminophen but minimal improvement. Pain goes only to her knee does not radiate down into her foot she states there is no loss of strength or sensation. She denies nausea vomiting constipation mental cloudiness however patient is repeating her questions and seems somewhat confused and histrionic. Denies drowsiness there is no history of drug addiction, she is a smoker denies alcohol use. She does not appear to be unkempt she is not requesting early renewals of her current pain control medications I do not get the impression that she is using pain control medication response to anxiety but again she is clearly confused. The pain has affected her physical functioning mood sleeping patterns as she is mostly complaining of severe pain at night overall function is affected, she states that she limps. This is in contrast to what she had told me initially. And this is gone on for 3 months prior to this presentation. 1. Symptomatic anemia. Etiology unclear. Iron panel showing iron deficiency. Start iron supplements. Status post PRBC transfusion. Continue PRBC transfusions as appropriate. The patient's CT scan showing evidence of numerous lytic lesions along with left adrenal nodule/mass, enlarged subaortic and left perihilar lymph nodes suggestive of metastatic disease. Obtain oncology evaluation. 2. Intermediate reticulonodular pulmonary opacities suggesting bronchiolitis/ bronchopneumonia. Continue antibiotics. 3. Pulmonary emphysema. The patient is a chronic smoker. We will start the patient on as needed inhaled bronchodilators. 4. Acute to subacute severe compression fracture of T2. Possibly pathological fracture. The patient will be provided with adequate pain control. Obtain neurosurgical evaluation. 5. Fluids, electrolytes, and nutrition. Regular diet. 6. DVT prophylaxis. Bilateral sequential compression devices. 7. Plan. Transfuse 1 more unit of PRBC. Start IV and supplements. Obtain oncology consult. Obtain neurosurgery consult. Case discussed with Dr. Bobby. Problems: Consultation Date/Type/Reason Admit Date/Time Jan 01, 2017 at 18:36 Initial Consult Date 01/02/17 Type of Consultation: Pain management Referring Provider: ROXANN JACKSON HEALTH INFORMATION MANAGER 24 HR Interval Summary Free Text/Dictation I have ordered a CT scan of the head with and without contrast, suggest RT and Neurosurg consultation as soon as possible. Exam/Review of Systems Vital Signs Vitals Vital Signs Date Time Temp Pulse Resp B/P Pulse Ox O2 Delivery O2 Flow Rate FiO2 01/03/17 04:00 90 01/03/17 03:46 98.5 20 107/55 93 01/02/17 14:45 21 Intake and Output 01/02/17 01/02/17 01/03/17 15:00 23:00 07:00 Intake Total 800 ml Balance 800 ml Results Result Diagram: 01/02/17 0729 01/02/17 0730 Results 24 hrs Laboratory Tests Test 01/02/17 22:44 Absolute Reticulocyte Count 0.118 H Percent Reticulocyte Count 3.5 H Iron Level 195 #H Total Iron Binding Capacity 379 Percent Iron Saturation 51 Ferritin 18.1 Lactate Dehydrogenase Pending Vitamin B12 Level 723 Folate 19.1 Medications Medications Current Medications Ondansetron HCl (Zofran Inj) 4 mg Q6H PRN IV NAUSEA AND/OR VOMITING; Start at 21:00 Acetaminophen (Tylenol Tab) 650 mg Q6H PRN PO PAIN LEVEL 1-3 OR FEVER; Start 01/01/17 at 21:00 Acetaminophen/ Hydrocodone Bitart ([place] (5/325)) 1 tab Q6H PRN PO PAIN LEVEL 4 -6 Last administered on 01/03/17 06:01; Admin Dose 1 TAB; Start 01/01/17 at 21:00 Famotidine (Pepcid) 20 mg Q12 PO Last administered on 01/02/17 21:00; Admin Dose 20 MG; Start 01/01/17 at 21:00 Atorvastatin Calcium 40 mg 40 mg DAILY PO Last administered on 01/02/17 08:33 ; Admin Dose 40 MG; Start 01/02/17 at 09:00 Levofloxacin/ Dextrose (Levaquin 750 Mg/ D5W 150 ml (Pmx)) 150 ml @ 100 mls/hr Q24H IVPB Last administered on 01/02/17 21:03; Admin Dose 100 MLS/HR; Start 01/01/17 at 21:30 Furosemide (Lasix) 10 mg ONCE IV Last administered on 01/02/17 21:03; Admin Dose 10 MG; Start 01/02/17 at 12:00; Stop 01/03/17 at 11:59 Tramadol HCl 50 mg 50 mg Q6H PRN PO Pain Last administered on 01/02/17 16:31 ; Admin Dose 50 MG; Start 01/02/17 at 12:00 Ferric Sodium Gluconate Complex/ Sodium Chloride (Ferrlecit/NS) 110 ml @ 110 mls/hr Q24H IVPB Last administered on 01/02/17 15:16; Admin Dose 110 MLS/HR; Start 01/02/17 at 14:00; Stop 01/06/17 at 14:59 FLAVIO KIM Jan 03, 2017 07:37
--- NOTE | 2017-01-03 07:40 | CONS ---
Date/Time of Note Date/Time of Note DATE: 01/03/17 TIME: 07:39 Assessment/Plan Assessment/Plan Chief Complaint/Hosp Course All of the information is taken from patient's medical records patient currently down having a imaging study. She is a 66-year-old female who presented to the emergency room [facility] and was found to have a low hemoglobin level. Imaging study was consistent with multiple lytic lesions adrenal glands, periaortic lymphadenopathy and bryn- hilar lesions. CT scan of the chest is also suspicious for metastasis. Patient is being seen by oncology pending consultation. I am asked to see patient only in pain management, no issues concerning palliation of care will be addressed until oncology has evaluated patient. Return to see patient she is anxious to leave the hospital and states that she has not spoken to clinicians since she has been here however in further questioning she states that she has seen doctors but has not been told why she is hospitalized. She continues to say that she has right lower leg pain but I had to ask repeated questions about pain management until she told me that she has had this discomfort for 3 months prior to this hospitalization. States the pain has been increasing in severity with sudden onset describes as a lancinating type of pain alternating with squeezing. 10/10 with some alleviation with tramadol and acetaminophen but minimal improvement. Pain goes only to her knee does not radiate down into her foot she states there is no loss of strength or sensation. She denies nausea vomiting constipation mental cloudiness however patient is repeating her questions and seems somewhat confused and histrionic. Denies drowsiness there is no history of drug addiction, she is a smoker denies alcohol use. She does not appear to be unkempt she is not requesting early renewals of her current pain control medications I do not get the impression that she is using pain control medication response to anxiety but again she is clearly confused. The pain has affected her physical functioning mood sleeping patterns as she is mostly complaining of severe pain at night overall function is affected, she states that she limps. This is in contrast to what she had told me initially. And this is gone on for 3 months prior to this presentation. 1. Symptomatic anemia. Etiology unclear. Iron panel showing iron deficiency. Start iron supplements. Status post PRBC transfusion. Continue PRBC transfusions as appropriate. The patient's CT scan showing evidence of numerous lytic lesions along with left adrenal nodule/mass, enlarged subaortic and left perihilar lymph nodes suggestive of metastatic disease. Obtain oncology evaluation. 2. Intermediate reticulonodular pulmonary opacities suggesting bronchiolitis/ bronchopneumonia. Continue antibiotics. 3. Pulmonary emphysema. The patient is a chronic smoker. We will start the patient on as needed inhaled bronchodilators. 4. Acute to subacute severe compression fracture of T2. Possibly pathological fracture. The patient will be provided with adequate pain control. Obtain neurosurgical evaluation. 5. Fluids, electrolytes, and nutrition. Regular diet. 6. DVT prophylaxis. Bilateral sequential compression devices. 7. Plan. Transfuse 1 more unit of PRBC. Start IV and supplements. Obtain oncology consult. Obtain neurosurgery consult. Case discussed with Dr. Bobby. Problems: Consultation Date/Type/Reason Admit Date/Time Jan 01, 2017 at 18:36 Initial Consult Date 01/02/17 Type of Consultation: Pain management Referring Provider: ROXANN JACKSON NP 24 HR Interval Summary Free Text/Dictation Suggest neurosurgical and RT consultation for symptomatic pathological fracture Exam/Review of Systems Vital Signs Vitals Vital Signs Date Time Temp Pulse Resp B/P Pulse Ox O2 Delivery O2 Flow Rate FiO2 01/03/17 04:00 90 01/03/17 03:46 98.5 20 107/55 93 01/02/17 14:45 21 Intake and Output 01/02/17 01/02/17 01/03/17 15:00 23:00 07:00 Intake Total 800 ml Balance 800 ml Results Result Diagram: 01/02/17 0729 01/02/17 0730 Results 24 hrs Laboratory Tests Test 01/02/17 22:44 Absolute Reticulocyte Count 0.118 H Percent Reticulocyte Count 3.5 H Iron Level 195 #H Total Iron Binding Capacity 379 Percent Iron Saturation 51 Ferritin 18.1 Lactate Dehydrogenase Pending Vitamin B12 Level 723 Folate 19.1 Medications Medications Current Medications Ondansetron HCl (Zofran Inj) 4 mg Q6H PRN IV NAUSEA AND/OR VOMITING; Start at 21:00 Acetaminophen (Tylenol Tab) 650 mg Q6H PRN PO PAIN LEVEL 1-3 OR FEVER; Start 01/01/17 at 21:00 Acetaminophen/ Hydrocodone Bitart ([place] (5/325)) 1 tab Q6H PRN PO PAIN LEVEL 4 -6 Last administered on 01/03/17 06:01; Admin Dose 1 TAB; Start 01/01/17 at 21:00 Famotidine (Pepcid) 20 mg Q12 PO Last administered on 01/02/17 21:00; Admin Dose 20 MG; Start 01/01/17 at 21:00 Atorvastatin Calcium 40 mg 40 mg DAILY PO Last administered on 01/02/17 08:33 ; Admin Dose 40 MG; Start 01/02/17 at 09:00 Levofloxacin/ Dextrose (Levaquin 750 Mg/ D5W 150 ml (Pmx)) 150 ml @ 100 mls/hr Q24H IVPB Last administered on 01/02/17 21:03; Admin Dose 100 MLS/HR; Start 01/01/17 at 21:30 Furosemide (Lasix) 10 mg ONCE IV Last administered on 01/02/17 21:03; Admin Dose 10 MG; Start 01/02/17 at 12:00; Stop 01/03/17 at 11:59 Tramadol HCl 50 mg 50 mg Q6H PRN PO Pain Last administered on 01/02/17 16:31 ; Admin Dose 50 MG; Start 01/02/17 at 12:00 Ferric Sodium Gluconate Complex/ Sodium Chloride (Ferrlecit/NS) 110 ml @ 110 mls/hr Q24H IVPB Last administered on 01/02/17 15:16; Admin Dose 110 MLS/HR; Start 01/02/17 at 14:00; Stop 01/06/17 at 14:59 FLAVIO KIM Jan 03, 2017 07:40
--- NOTE | 2017-01-03 07:43 | CONS ---
Date/Time of Note Date/Time of Note DATE: 01/03/17 TIME: 07:42 Assessment/Plan Assessment/Plan Chief Complaint/Hosp Course All of the information is taken from patient's medical records patient currently down having a imaging study. She is a 66-year-old female who presented to the emergency room [facility] and was found to have a low hemoglobin level. Imaging study was consistent with multiple lytic lesions adrenal glands, periaortic lymphadenopathy and bryn- hilar lesions. CT scan of the chest is also suspicious for metastasis. Patient is being seen by oncology pending consultation. I am asked to see patient only in pain management, no issues concerning palliation of care will be addressed until oncology has evaluated patient. Return to see patient she is anxious to leave the hospital and states that she has not spoken to clinicians since she has been here however in further questioning she states that she has seen doctors but has not been told why she is hospitalized. She continues to say that she has right lower leg pain but I had to ask repeated questions about pain management until she told me that she has had this discomfort for 3 months prior to this hospitalization. States the pain has been increasing in severity with sudden onset describes as a lancinating type of pain alternating with squeezing. 10/10 with some alleviation with tramadol and acetaminophen but minimal improvement. Pain goes only to her knee does not radiate down into her foot she states there is no loss of strength or sensation. She denies nausea vomiting constipation mental cloudiness however patient is repeating her questions and seems somewhat confused and histrionic. Denies drowsiness there is no history of drug addiction, she is a smoker denies alcohol use. She does not appear to be unkempt she is not requesting early renewals of her current pain control medications I do not get the impression that she is using pain control medication response to anxiety but again she is clearly confused. The pain has affected her physical functioning mood sleeping patterns as she is mostly complaining of severe pain at night overall function is affected, she states that she limps. This is in contrast to what she had told me initially. And this is gone on for 3 months prior to this presentation. 1. Symptomatic anemia. Etiology unclear. Iron panel showing iron deficiency. Start iron supplements. Status post PRBC transfusion. Continue PRBC transfusions as appropriate. The patient's CT scan showing evidence of numerous lytic lesions along with left adrenal nodule/mass, enlarged subaortic and left perihilar lymph nodes suggestive of metastatic disease. Obtain oncology evaluation. 2. Intermediate reticulonodular pulmonary opacities suggesting bronchiolitis/ bronchopneumonia. Continue antibiotics. 3. Pulmonary emphysema. The patient is a chronic smoker. We will start the patient on as needed inhaled bronchodilators. 4. Acute to subacute severe compression fracture of T2. Possibly pathological fracture. The patient will be provided with adequate pain control. Obtain neurosurgical evaluation. 5. Fluids, electrolytes, and nutrition. Regular diet. 6. DVT prophylaxis. Bilateral sequential compression devices. 7. Plan. Transfuse 1 more unit of PRBC. Start IV and supplements. Obtain oncology consult. Obtain neurosurgery consult. Case discussed with Dr. Bobby. Problems: Consultation Date/Type/Reason Admit Date/Time Jan 01, 2017 at 18:36 Initial Consult Date 01/02/17 Type of Consultation: Pain management Referring Provider: ROXANN JACKSON NP 24 HR Interval Summary Free Text/Dictation Suggest neurosurgical and RT consultation Exam/Review of Systems Vital Signs Vitals Vital Signs Date Time Temp Pulse Resp B/P Pulse Ox O2 Delivery O2 Flow Rate FiO2 01/03/17 04:00 90 01/03/17 03:46 98.5 20 107/55 93 01/02/17 14:45 21 Intake and Output 01/02/17 01/02/17 01/03/17 15:00 23:00 07:00 Intake Total 800 ml Balance 800 ml Results Result Diagram: 01/02/17 0729 01/02/17 0730 Results 24 hrs Laboratory Tests Test 01/02/17 22:44 Absolute Reticulocyte Count 0.118 H Percent Reticulocyte Count 3.5 H Iron Level 195 #H Total Iron Binding Capacity 379 Percent Iron Saturation 51 Ferritin 18.1 Lactate Dehydrogenase Pending Vitamin B12 Level 723 Folate 19.1 Medications Medications Current Medications Ondansetron HCl (Zofran Inj) 4 mg Q6H PRN IV NAUSEA AND/OR VOMITING; Start at 21:00 Acetaminophen (Tylenol Tab) 650 mg Q6H PRN PO PAIN LEVEL 1-3 OR FEVER; Start 01/01/17 at 21:00 Acetaminophen/ Hydrocodone Bitart ([place] (5/325)) 1 tab Q6H PRN PO PAIN LEVEL 4 -6 Last administered on 01/03/17t 06:01; Admin Dose 1 TAB; Start 01/01/17 at 21:00 Famotidine (Pepcid) 20 mg Q12 PO Last administered on 01/02/17 21:00; Admin Dose 20 MG; Start 01/01/17 at 21:00 Atorvastatin Calcium 40 mg 40 mg DAILY PO Last administered on 01/02/17 08:33 ; Admin Dose 40 MG; Start 01/02/17 at 09:00 Levofloxacin/ Dextrose (Levaquin 750 Mg/ D5W 150 ml (Pmx)) 150 ml @ 100 mls/hr Q24H IVPB Last administered on 01/02/17 21:03; Admin Dose 100 MLS/HR; Start 01/01/17 at 21:30 Furosemide (Lasix) 10 mg ONCE IV Last administered on 01/02/17 21:03; Admin Dose 10 MG; Start 01/02/17 at 12:00; Stop 01/03/17 at 11:59 Tramadol HCl 50 mg 50 mg Q6H PRN PO Pain Last administered on 01/02/17 16:31 ; Admin Dose 50 MG; Start 01/02/17 at 12:00 Ferric Sodium Gluconate Complex/ Sodium Chloride (Ferrlecit/NS) 110 ml @ 110 mls/hr Q24H IVPB Last administered on 01/02/17 15:16; Admin Dose 110 MLS/HR; Start 01/02/17 at 14:00; Stop 01/06/17 at 14:59 FLAVIO KIM Jan 03, 2017 07:43
[2017-01-03] MEDS: SENNA/DOCUSATE NA (8.6MG/50MG) TAB PO SCH (09:30)
[2017-01-03] MEDS: ATORVASTATIN 20 MG TAB PO SCH (09:30)
[2017-01-03] MEDS: FAMOTIDINE 20 MG TAB PO SCH ×2 (09:30→20:27)
--- NOTE | 2017-01-03 10:55 | PN ---
Date/Time of Note Date/Time of Note DATE: 01/03/17 TIME: 10:52 Assessment/Plan VTE Prophylaxis VTE Prophylaxis Intervention: SCD's Lines/Catheters IV [facility] [place] Urinary Cath still in place: No Assessment/Plan Chief Complaint/Hosp Course 1. Symptomatic anemia. Etiology unclear. Iron panel showing iron deficiency. Continue iron supplements. Status post PRBC transfusion. Continue PRBC transfusions as appropriate. The patient's CT scan showing evidence of numerous lytic lesions along with left adrenal nodule/mass, enlarged subaortic and left perihilar lymph nodes suggestive of metastatic disease. Oncology evaluation ongoing. Plan for CT-guided biopsy of L2 vertebral body mass. 2. Intermediate reticulonodular pulmonary opacities suggesting bronchiolitis/ bronchopneumonia. Continue antibiotics. 3. Pulmonary emphysema. The patient is a chronic smoker. Continue as needed inhaled bronchodilators. 4. Acute to subacute severe compression fracture of T2. Possibly pathological fracture. The patient will be provided with adequate pain control. Neurosurgical consult was obtained. The patient was unable to complete the MRI imaging of the thoracic and lumbar spine as requested by neurosurgery. 5. Fluids, electrolytes, and nutrition. Regular diet. 6. DVT prophylaxis. Bilateral sequential compression devices. 7. Plan. Had a long conversation with the patient with the high suspicion for metastatic disease and the necessity for obtaining a diagnosis with tissue sample. The patient finally agreed for L2 vertebral mass biopsy. Case discussed with Dr. Bobby. Case discussed with oncology. Problems: Subjective 24 Hr Interval Summary Free Text/Dictation The patient continues to have right lower extremity sciatic pain. Patient has been anxious and asking when she can go home. Exam/Review of Systems Vital Signs Vitals Vital Signs Date Time Temp Pulse Resp B/P Pulse Ox O2 Delivery O2 Flow Rate FiO2 01/03/17 08:58 93 01/03/17 07:57 Room Air 01/03/17 07:29 99.1 19 102/61 96 01/02/17 14:45 21 Intake and Output 01/02/17 01/02/17 01/03/17 15:00 23:00 07:00 Intake Total 800 ml Balance 800 ml Exam General: Adequately build 66 year-old female lying in bed in no apparent distress. HEENT: Normocephalic, atraumatic. Eyes: Anicteric sclerae, conjunctivae clear. ENT: Nasal septum midline, oral mucosa moist. Neck supple, no JVD noticed. Respiratory: Bilaterally diminished breath sounds. No use of accessory muscles of respiration. Cardiovascular: S1, S2 heard. No murmurs or gallops. Abdomen: Soft, nontender, and nondistended. Bowel sounds positive in all 4 quadrants. Genitourinary: Deferred. Extremities: No cyanosis, no clubbing, no edema. Peripheral pulses palpable. Neurologic: Cranial nerves II through XII grossly intact. The patient is awake, alert, and oriented. Skin: Normal skin turgor. No skin rashes. Results Result Diagram: 01/03/17 0735 01/03/17 0735 Results 24 hrs Laboratory Tests Test 01/02/17 22:44 01/03/17 06:00 01/03/17 07:35 Absolute Reticulocyte Count 0.118 H Percent Reticulocyte Count 3.5 H Iron Level 195 #H Total Iron Binding Capacity 379 Percent Iron Saturation 51 Ferritin 18.1 Lactate Dehydrogenase 1097 H Vitamin B12 Level 723 Folate 19.1 Urine Color YELLOW Urine Clarity CLEAR Urine pH 6.0 Urine Specific [place] 1.010 Urine Ketones NEGATIVE Urine Nitrite NEGATIVE Urine Bilirubin NEGATIVE Urine Urobilinogen NEGATIVE Urine Leukocyte Esterase NEGATIVE Urine Hemoglobin NEGATIVE Urine Glucose NEGATIVE Urine Total Protein NEGATIVE White Blood Count 12.3 H Red Blood Count 3.30 #L Hemoglobin 8.8 #L Hematocrit 28.5 #L Mean Corpuscular Volume 86.4 Mean Corpuscular Hemoglobin 26.7 L Mean Corpuscular Hemoglobin Concent 30.9 L Red Cell Distribution Width 15.7 H Platelet Count 438 H Mean Platelet Volume 9.6 Neutrophils % 78.9 H Lymphocytes % 10.0 L Monocytes % 9.8 Eosinophils % 0.5 Basophils % 0.2 Nucleated Red Blood Cells % 1.1 H Neutrophils # 9.7 H Lymphocytes # 1.2 Monocytes # 1.2 H Eosinophils # 0.1 Basophils # 0.0 Nucleated Red Blood Cells # 0.1 H Prothrombin Time 16.8 H Prothrombin Time Ratio 1.3 INR International Normalized Ratio 1.36 Activated Partial Thromboplast Time 38.1 H Sodium Level 136 Potassium Level 4.3 Chloride Level 103 Carbon Dioxide Level 24 Anion Gap 13 Blood Urea Nitrogen 10 Creatinine 0.64 Glucose Level 86 Calcium Level 9.6 Phosphorus Level 4.3 Magnesium Level 1.8 Total Bilirubin 0.8 Direct Bilirubin 0.00 Indirect Bilirubin 0.8 Aspartate Amino Transf (AST/SGOT) 28 Alanine Aminotransferase (ALT/SGPT) 31 Alkaline Phosphatase 159 H Total Protein 6.4 Albumin 3.0 L Globulin 3.40 H Albumin/Globulin Ratio 0.88 Medications Medications Current Medications Ondansetron HCl (Zofran Inj) 4 mg Q6H PRN IV NAUSEA AND/OR VOMITING; Start at 21:00 Acetaminophen (Tylenol Tab) 650 mg Q6H PRN PO PAIN LEVEL 1-3 OR FEVER; Start 01/01/17 at 21:00 Famotidine (Pepcid) 20 mg Q12 PO Last administered on 01/03/17 09:30; Admin Dose 20 MG; Start 01/01/17 at 21:00 Atorvastatin Calcium 40 mg 40 mg DAILY PO Last administered on 01/03/17 09:30 ; Admin Dose 40 MG; Start 01/02/17 at 09:00 Levofloxacin/ Dextrose (Levaquin 750 Mg/ D5W 150 ml (Pmx)) 150 ml @ 100 mls/hr Q24H IVPB Last administered on 01/02/17 21:03; Admin Dose 100 MLS/HR; Start 01/01/17 at 21:30 Furosemide 10 mg 10 mg ONCE IV Last administered on 01/02/17 21:03; Admin Dose 10 MG; Start 01/02/17 at 12:00; Stop 01/03/17 at 11:59 Ferric Sodium Gluconate Complex/ Sodium Chloride (Ferrlecit/NS) 110 ml @ 110 mls/hr Q24H IVPB Last administered on 01/02/17 15:16; Admin Dose 110 MLS/HR; Start 01/02/17 at 14:00; Stop 01/06/17 at 14:59 Hydromorphone HCl (Dilaudid) 2 mg Q4H PRN PO PAIN; Start 01/03/17 at 08:00 Senna/Docusate Sodium (Senokot-S) 1 tab AM PO Last administered on 01/03/17 09:30; Admin Dose 1 TAB; Start 01/03/17 at 09:00 Ibuprofen (Motrin) 600 mg BID PO ; Start 01/03/17 at 11:00 Pantoprazole (Protonix Tab) 40 mg DAILY@06 PO ; Start 01/03/17 at 11:00 Dexamethasone (Decadron) 6 mg Q6 IV ; Start 01/03/17 at 12:00 ROXANN JACKSON NP Jan 03, 2017 10:55
[2017-01-03] MEDS ORDERED: DEXAMETHASONE 10 MG/ML 1 ML INJ IV SCH (12:00)
[2017-01-03] MEDS: HYDROmorphONE 2 MG TAB PO PRN ×2 (12:02→18:04)
[2017-01-03] MEDS: PANTOPRAZOLE (EC) 40 MG TAB PO SCH (12:02)
[2017-01-03] MEDS: IBUPROFEN 600 MG TAB PO SCH ×2 (12:02→20:27)
[2017-01-03] MEDS: DEXAMETHASONE 4 MG/ML 1 ML INJ IV SCH ×2 (12:03→18:04)
[2017-01-03] MEDS: SOD FERRIC GLUC COMPLX 125 MG in SOD CHLORIDE 0.9% 100 ML IVPB SCH (14:21)
[2017-01-03] MEDS: LEVOFLOXACIN 750MG/D5W (PMX) 150 ML IVPB SCH (20:28)
[2017-01-04] VITALS (11 sets, daily range): BP systolic 107–140; BP diastolic 57–68; PULSE 87–118; RESP 18–20
[2017-01-04] MEDS: DEXAMETHASONE 4 MG/ML 1 ML INJ IV SCH ×4 (01:36→17:43)
[2017-01-04] MEDS: HYDROmorphONE 2 MG TAB PO PRN ×5 (01:36→17:44)
[2017-01-04] MEDS: PANTOPRAZOLE (EC) 40 MG TAB PO SCH (05:36)
[2017-01-04] MEDS: IBUPROFEN 600 MG TAB PO SCH ×2 (09:17→21:00)
[2017-01-04] MEDS: SENNA/DOCUSATE NA (8.6MG/50MG) TAB PO SCH (09:19)
[2017-01-04] MEDS: ATORVASTATIN 20 MG TAB PO SCH (09:19)
[2017-01-04] MEDS: FAMOTIDINE 20 MG TAB PO SCH ×2 (09:19→21:00)
--- NOTE | 2017-01-04 13:28 | PN ---
Date/Time of Note Date/Time of Note DATE: 01/04/17 TIME: 13:26 Assessment/Plan VTE Prophylaxis VTE Prophylaxis Intervention: SCD's Lines/Catheters IV C[facility]ter Type (from [facility] Saline Lock Urinary Cath still in place: No Assessment/Plan Chief Complaint/Hosp Course 1. Symptomatic anemia. Etiology unclear. Iron panel showing iron deficiency. Continue iron supplements. Status post PRBC transfusion. Continue PRBC transfusions as appropriate. The patient's CT scan showing evidence of numerous lytic lesions along with left adrenal nodule/mass, enlarged subaortic and left perihilar lymph nodes suggestive of metastatic disease. Oncology evaluation ongoing. Plan for CT-guided biopsy of L2 vertebral body mass. 2. Intermediate reticulonodular pulmonary opacities suggesting bronchiolitis/ bronchopneumonia. Continue antibiotics. 3. Pulmonary emphysema. The patient is a chronic smoker. Continue as needed inhaled bronchodilators. 4. Acute to subacute severe compression fracture of T2. Possibly pathological fracture. The patient will be provided with adequate pain control. Neurosurgical consult was obtained. The patient was unable to complete the MRI imaging of the thoracic and lumbar spine as requested by neurosurgery. 5. Fluids, electrolytes, and nutrition. Regular diet. 6. DVT prophylaxis. Bilateral sequential compression devices. 7. Plan. Await biopsy. Case discussed with Dr. Bobby. Case discussed with Neurosurgery. Problems: Subjective 24 Hr Interval Summary Free Text/Dictation The patient refused brain CT scan today. Verbalizes that she is very anxious and frustrated. Patient ate breakfast and as a result the patient's lumbar spine biopsy has been postponed. Exam/Review of Systems Vital Signs Vitals Vital Signs Date Time Temp Pulse Resp B/P Pulse Ox O2 Delivery O2 Flow Rate FiO2 01/04/17 12:31 112 01/04/17 12:00 98.4 18 107/57 94 01/03/17 13:03 Room Air 01/02/17 14:45 21 Intake and Output 01/03/17 01/03/17 01/04/17 15:00 23:00 07:00 Intake Total 900 ml 450 ml Balance 900 ml 450 ml Exam General: Adequately build 66 year-old female lying in bed in no apparent distress. HEENT: Normocephalic, atraumatic. Eyes: Anicteric sclerae, conjunctivae clear. ENT: Nasal septum midline, oral mucosa moist. Neck supple, no JVD noticed. Respiratory: Bilaterally diminished breath sounds. No use of accessory muscles of respiration. Cardiovascular: S1, S2 heard. No murmurs or gallops. Abdomen: Soft, nontender, and nondistended. Bowel sounds positive in all 4 quadrants. Genitourinary: Deferred. Extremities: No cyanosis, no clubbing, no edema. Peripheral pulses palpable. Neurologic: Cranial nerves II through XII grossly intact. The patient is awake, alert, and oriented. Skin: Normal skin turgor. No skin rashes. Results Result Diagram: 01/04/17 0636 01/04/17 0636 Results 24 hrs Laboratory Tests Test 01/04/17 06:36 White Blood Count 15.4 #H Red Blood Count 3.53 L Hemoglobin 9.2 L Hematocrit 30.9 L Mean Corpuscular Volume 87.5 Mean Corpuscular Hemoglobin 26.1 L Mean Corpuscular Hemoglobin Concent 29.8 L Red Cell Distribution Width 16.2 H Platelet Count 478 H Mean Platelet Volume 9.9 Neutrophils % 90.6 H Lymphocytes % 5.5 L Monocytes % 2.8 Eosinophils % 0.0 Basophils % 0.1 Nucleated Red Blood Cells % 0.3 H Neutrophils # 14.0 H Lymphocytes # 0.8 Monocytes # 0.4 Eosinophils # 0.0 Basophils # 0.0 Nucleated Red Blood Cells # 0.0 Sodium Level 136 Potassium Level 4.6 Chloride Level 102 Carbon Dioxide Level 26 Anion Gap 13 Blood Urea Nitrogen 15 Creatinine 0.64 Glucose Level 119 Calcium Level 9.8 Phosphorus Level 4.0 Magnesium Level 2.0 Total Bilirubin 0.4 Direct Bilirubin 0.00 Indirect Bilirubin 0.4 Aspartate Amino Transf (AST/SGOT) 29 Alanine Aminotransferase (ALT/SGPT) 28 Alkaline Phosphatase 157 H Total Protein 7.1 Albumin 3.3 Globulin 3.80 H Albumin/Globulin Ratio 0.86 Medications Medications Current Medications Ondansetron HCl (Zofran Inj) 4 mg Q6H PRN IV NAUSEA AND/OR VOMITING; Start at 21:00 Acetaminophen (Tylenol Tab) 650 mg Q6H PRN PO PAIN LEVEL 1-3 OR FEVER; Start 01/01/17 at 21:00 Famotidine (Pepcid) 20 mg Q12 PO Last administered on 01/04/17t 09:19; Admin Dose 20 MG; Start 01/01/17 at 21:00 Atorvastatin Calcium 40 mg 40 mg DAILY PO Last administered on 01/04/17 09:19 ; Admin Dose 40 MG; Start 01/02/17 at 09:00 Levofloxacin/ Dextrose 150 ml @ 100 mls/hr Q24H IVPB Last administered on 20:28; Admin Dose 100 MLS/HR; Start 01/01/17 at 21:30 Ferric Sodium Gluconate Complex/ Sodium Chloride (Ferrlecit/NS) 110 ml @ 110 mls/hr Q24H IVPB Last administered on 01/03/17 14:21; Admin Dose 110 MLS/HR; Start 01/02/17 at 14:00; Stop 01/06/17 at 14:59 Hydromorphone HCl (Dilaudid) 2 mg Q4H PRN PO PAIN Last administered on 13:17; Admin Dose 2 MG; Start 01/03/17 at 08:00 Senna/Docusate Sodium (Senokot-S) 1 tab AM PO Last administered on 01/04/17 09:19; Admin Dose 1 TAB; Start 01/03/17 at 09:00 Ibuprofen (Motrin) 600 mg BID PO Last administered on 01/04/17 09:17; Admin Dose 600 MG; Start 01/03/17 at 11:00 Pantoprazole (Protonix Tab) 40 mg DAILY@06 PO Last administered on 01/04/17 05:36; Admin Dose 40 MG; Start 01/03/17 at 11:00 Dexamethasone (Decadron) 6 mg Q6 IV Last administered on 01/04/17 12:58; Admin Dose 6 MG; Start 01/03/17 at 12:00 ROXANN JACKSON NP Jan 04, 2017 13:28
--- NOTE | 2017-01-04 13:55 | CONS ---
Date/Time of Note Date/Time of Note DATE: 01/04/17 TIME: 13:54 Assessment/Plan Assessment/Plan Additional Assessment/Plan She has refused CT head and MRI today... will schedule a meeting with friend to assess safety of discharge or consider SNF although I think patient will vehemently refuse.She states her pain is under good control. No side effects although patient is globally confused.. suspect brain mets Copies To: Consultation Date/Type/Reason Admit Date/Time Jan 01, 2017 at 18:36 Initial Consult Date 01/02/17 Type of Consultation: Pain management Referring Provider: ROXANN JACKSON NP Exam/Review of Systems Vital Signs Vitals Vital Signs Date Time Temp Pulse Resp B/P Pulse Ox O2 Delivery O2 Flow Rate FiO2 01/04/17 12:31 112 01/04/17 12:00 98.4 18 107/57 94 01/03/17 13:03 Room Air 01/02/17 14:45 21 Intake and Output 01/03/17 01/03/17 01/04/17 15:00 23:00 07:00 Intake Total 900 ml 450 ml Balance 900 ml 450 ml Results Result Diagram: 01/04/17 0636 01/04/17 0636 Results 24 hrs Laboratory Tests Test 01/04/17 06:36 White Blood Count 15.4 #H Red Blood Count 3.53 L Hemoglobin 9.2 L Hematocrit 30.9 L Mean Corpuscular Volume 87.5 Mean Corpuscular Hemoglobin 26.1 L Mean Corpuscular Hemoglobin Concent 29.8 L Red Cell Distribution Width 16.2 H Platelet Count 478 H Mean Platelet Volume 9.9 Neutrophils % 90.6 H Lymphocytes % 5.5 L Monocytes % 2.8 Eosinophils % 0.0 Basophils % 0.1 Nucleated Red Blood Cells % 0.3 H Neutrophils # 14.0 H Lymphocytes # 0.8 Monocytes # 0.4 Eosinophils # 0.0 Basophils # 0.0 Nucleated Red Blood Cells # 0.0 Sodium Level 136 Potassium Level 4.6 Chloride Level 102 Carbon Dioxide Level 26 Anion Gap 13 Blood Urea Nitrogen 15 Creatinine 0.64 Glucose Level 119 Calcium Level 9.8 Phosphorus Level 4.0 Magnesium Level 2.0 Total Bilirubin 0.4 Direct Bilirubin 0.00 Indirect Bilirubin 0.4 Aspartate Amino Transf (AST/SGOT) 29 Alanine Aminotransferase (ALT/SGPT) 28 Alkaline Phosphatase 157 H Total Protein 7.1 Albumin 3.3 Globulin 3.80 H Albumin/Globulin Ratio 0.86 Medications Medications Current Medications Ondansetron HCl (Zofran Inj) 4 mg Q6H PRN IV NAUSEA AND/OR VOMITING; Start at 21:00 Acetaminophen (Tylenol Tab) 650 mg Q6H PRN PO PAIN LEVEL 1-3 OR FEVER; Start 01/01/17 at 21:00 Famotidine (Pepcid) 20 mg Q12 PO Last administered on 01/04/17 09:19; Admin Dose 20 MG; Start 01/01/17 at 21:00 Atorvastatin Calcium 40 mg 40 mg DAILY PO Last administered on 01/04/17 09:19 ; Admin Dose 40 MG; Start 01/02/17 at 09:00 Levofloxacin/ Dextrose 150 ml @ 100 mls/hr Q24H IVPB Last administered on 20:28; Admin Dose 100 MLS/HR; Start 01/01/17 at 21:30 Ferric Sodium Gluconate Complex/ Sodium Chloride (Ferrlecit/NS) 110 ml @ 110 mls/hr Q24H IVPB Last administered on 01/03/17 14:21; Admin Dose 110 MLS/HR; Start 01/02/17 at 14:00; Stop 01/06/17 at 14:59 Hydromorphone HCl (Dilaudid) 2 mg Q4H PRN PO PAIN Last administered on 13:17; Admin Dose 2 MG; Start 01/03/17 at 08:00 Senna/Docusate Sodium (Senokot-S) 1 tab AM PO Last administered on 01/04/17 09:19; Admin Dose 1 TAB; Start 01/03/17 at 09:00 Ibuprofen (Motrin) 600 mg BID PO Last administered on 01/04/17 09:17; Admin Dose 600 MG; Start 01/03/17 at 11:00 Pantoprazole (Protonix Tab) 40 mg DAILY@06 PO Last administered on 01/04/17 05:36; Admin Dose 40 MG; Start 01/03/17 at 11:00 Dexamethasone (Decadron) 6 mg Q6 IV Last administered on 01/04/17 12:58; Admin Dose 6 MG; Start 01/03/17 at 12:00 FLAVIO KIM J Jan 04, 2017 13:55 Creatinine 0.64 Glucose Level 119 Calcium Level 9.8 Phosphorus Level 4.0 Magnesium Level 2.0 Total Bilirubin 0.4 Direct Bilirubin 0.00 Indirect Bilirubin 0.4 Aspartate Amino Transf (AST/SGOT) 29 Alanine Aminotransferase (ALT/SGPT) 28 Alkaline Phosphatase 157 H Total Protein 7.1 Albumin 3.3 Globulin 3.80 H Albumin/Globulin Ratio 0.86 Medications Medications Current Medications Ondansetron HCl (Zofran Inj) 4 mg Q6H PRN IV NAUSEA AND/OR VOMITING; Start at 21:00 Acetaminophen (Tylenol Tab) 650 mg Q6H PRN PO PAIN LEVEL 1-3 OR FEVER; Start 01/01/17 at 21:00 Famotidine (Pepcid) 20 mg Q12 PO Last administered on 01/04/17 09:19; Admin Dose 20 MG; Start 01/01/17 at 21:00 Atorvastatin Calcium 40 mg 40 mg DAILY PO Last administered on 01/04/17 09:19 ; Admin Dose 40 MG; Start 01/02/17 at 09:00 Levofloxacin/ Dextrose 150 ml @ 100 mls/hr Q24H IVPB Last administered on 20:28; Admin Dose 100 MLS/HR; Start 01/01/17 at 21:30 Ferric Sodium Gluconate Complex/ Sodium Chloride (Ferrlecit/NS) 110 ml @ 110 mls/hr Q24H IVPB Last administered on 01/03/17 14:21; Admin Dose 110 MLS/HR; Start 01/02/17 at 14:00; Stop 01/06/17 at 14:59 Hydromorphone HCl (Dilaudid) 2 mg Q4H PRN PO PAIN Last administered on 13:17; Admin Dose 2 MG; Start 01/03/17 at 08:00 Senna/Docusate Sodium (Senokot-S) 1 tab AM PO Last administered on 01/04/17 09:19; Admin Dose 1 TAB; Start 01/03/17 at 09:00 Ibuprofen (Motrin) 600 mg BID PO Last administered on 01/04/17 09:17; Admin Dose 600 MG; Start 01/03/17 at 11:00 Pantoprazole (Protonix Tab) 40 mg DAILY@06 PO Last administered on 01/04/17 05:36; Admin Dose 40 MG; Start 01/03/17 at 11:00 Dexamethasone (Decadron) 6 mg Q6 IV Last administered on 01/04/17 12:58; Admin Dose 6 MG; Start 01/03/17 at 12:00 FLAVIO KIM Jan 04, 2017 13:55
[2017-01-04] MEDS: SOD FERRIC GLUC COMPLX 125 MG in SOD CHLORIDE 0.9% 100 ML IVPB SCH (14:33)
--- NOTE | 2017-01-04 16:49 | CONS ---
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 Bx scheduled for today -given the wide spread of this disease and high possibility of underlying lung ca, will check brain MRI to rule out brain mets. pt is refusing this at this time -further treatment recommendations will depend on final pathology #T2 pathologic compression fracture -neurosurgery has been consulted -pt may benefit from kyphoplasty -will also consider radiation if symptomatic #Pneumonia -Intermediate reticulonodular pulmonary opacities suggesting bronchiolitis/bronchopneumonia. -Continue antibiotics. #Emphysema -cont bronchodialtors Problems: Consultation Date/Type/Reason Admit Date/Time Jan 01, 2017 at 18:36 Initial Consult Date 01/02/17 Type of Consultation: oncology Reason for Consultation metastatic cancer Referring Provider: ROXANN JACKSON [employer] O[employer]ATOR 24 HR Interval Summary Free Text/Dictation pt still with lower back pain. to have bx of L spine mass today Exam/Review of Systems Vital Signs Vitals Vital Signs Date Time Temp Pulse Resp B/P Pulse Ox O2 Delivery O2 Flow Rate FiO2 01/04/17 16:18 100 01/04/17 15:53 97.5 20 112/62 93 01/03/17 13:03 Room Air 01/02/17 14:45 21 Intake and Output 01/03/17 01/03/17 01/04/17 15:00 23:00 07:00 Intake Total 900 ml 450 ml Balance 900 ml 450 ml Exam Constitutional: alert, oriented Psych: anxiety, depression Head: normocephalic Eyes: nl conjunctiva ENMT: nl external ears & nose Neck: non-tender, supple Respiratory: clear to auscultation Cardiovascular: nl pulses, regular rate and rhythm Gastrointestinal: soft Extremities: normal pulses Results Result Diagram: 01/04/17 0636 01/04/17 0636 Results 24 hrs Laboratory Tests Test 01/04/17 06:36 White Blood Count 15.4 #H Red Blood Count 3.53 L Hemoglobin 9.2 L Hematocrit 30.9 L Mean Corpuscular Volume 87.5 Mean Corpuscular Hemoglobin 26.1 L Mean Corpuscular Hemoglobin Concent 29.8 L Red Cell Distribution Width 16.2 H Platelet Count 478 H Mean Platelet Volume 9.9 Neutrophils % 90.6 H Lymphocytes % 5.5 L Monocytes % 2.8 Eosinophils % 0.0 Basophils % 0.1 Nucleated Red Blood Cells % 0.3 H Neutrophils # 14.0 H Lymphocytes # 0.8 Monocytes # 0.4 Eosinophils # 0.0 Basophils # 0.0 Nucleated Red Blood Cells # 0.0 Sodium Level 136 Potassium Level 4.6 Chloride Level 102 Carbon Dioxide Level 26 Anion Gap 13 Blood Urea Nitrogen 15 Creatinine 0.64 Glucose Level 119 Calcium Level 9.8 Phosphorus Level 4.0 Magnesium Level 2.0 Total Bilirubin 0.4 Direct Bilirubin 0.00 Indirect Bilirubin 0.4 Aspartate Amino Transf (AST/SGOT) 29 Alanine Aminotransferase (ALT/SGPT) 28 Alkaline Phosphatase 157 H Total Protein 7.1 Albumin 3.3 Globulin 3.80 H Albumin/Globulin Ratio 0.86 Medications Medications Current Medications Ondansetron HCl (Zofran Inj) 4 mg Q6H PRN IV NAUSEA AND/OR VOMITING; Start at 21:00 Acetaminophen (Tylenol Tab) 650 mg Q6H PRN PO PAIN LEVEL 1-3 OR FEVER; Start 01/01/17 at 21:00 Famotidine (Pepcid) 20 mg Q12 PO Last administered on 01/04/17 09:19; Admin Dose 20 MG; Start 01/01/17 at 21:00 Atorvastatin Calcium 40 mg 40 mg DAILY PO Last administered on 01/04/17 09:19 ; Admin Dose 40 MG; Start 01/02/17 at 09:00 Levofloxacin/ Dextrose 150 ml @ 100 mls/hr Q24H IVPB Last administered on 20:28; Admin Dose 100 MLS/HR; Start 01/01/17 at 21:30 Ferric Sodium Gluconate Complex/ Sodium Chloride (Ferrlecit/NS) 110 ml @ 110 mls/hr Q24H IVPB Last administered on 01/04/17 14:33; Admin Dose 110 MLS/HR; Start 01/02/17 at 14:00; Stop 01/06/17 at 14:59 Hydromorphone HCl (Dilaudid) 2 mg Q4H PRN PO PAIN Last administered on 13:17; Admin Dose 2 MG; Start 01/03/17 at 08:00 Senna/Docusate Sodium (Senokot-S) 1 tab AM PO Last administered on 01/04/17 09:19; Admin Dose 1 TAB; Start 01/03/17 at 09:00 Ibuprofen (Motrin) 600 mg BID PO Last administered on 01/04/17 09:17; Admin Dose 600 MG; Start 01/03/17 at 11:00 Pantoprazole (Protonix Tab) 40 mg DAILY@06 PO Last administered on 01/04/17 05:36; Admin Dose 40 MG; Start 01/03/17 at 11:00 Dexamethasone (Decadron) 6 mg Q6 IV Last administered on 01/04/17 12:58; Admin Dose 6 MG; Start 01/03/17 at 12:00 DARYL AGEE M.D. Jan 04, 2017 16:49
[2017-01-04] MEDS: LEVOFLOXACIN 750MG/D5W (PMX) 150 ML IVPB SCH (21:00)
[2017-01-05] VITALS (13 sets, daily range): BP systolic 110–131; BP diastolic 58–73; PULSE 81–140; RESP 18–20
[2017-01-05] MEDS: DEXAMETHASONE 4 MG/ML 1 ML INJ IV SCH ×4 (00:59→18:28)
[2017-01-05] MEDS: HYDROmorphONE 2 MG TAB PO PRN ×4 (00:59→19:33)
[2017-01-05] MEDS: PANTOPRAZOLE (EC) 40 MG TAB PO SCH (06:00)
--- NOTE | 2017-01-05 09:39 | PN ---
Date/Time of Note Date/Time of Note DATE: 01/05/17 TIME: 09:38 Assessment/Plan VTE Prophylaxis VTE Prophylaxis Intervention: SCD's Lines/Catheters IV [facility]ter Type (from [facility] Saline Lock Urinary Cath still in place: No Assessment/Plan Chief Complaint/Hosp Course 1. Symptomatic anemia. Etiology unclear. Iron panel showing iron deficiency. Continue iron supplements. Status post PRBC transfusion. Continue PRBC transfusions as appropriate. The patient's CT scan showing evidence of numerous lytic lesions along with left adrenal nodule/mass, enlarged subaortic and left perihilar lymph nodes suggestive of metastatic disease. Oncology evaluation ongoing. Plan for CT-guided biopsy of L2 vertebral body mass. 2. Intermediate reticulonodular pulmonary opacities suggesting bronchiolitis/ bronchopneumonia. Continue antibiotics. 3. Pulmonary emphysema. The patient is a chronic smoker. Continue as needed inhaled bronchodilators. 4. Acute to subacute severe compression fracture of T2. Possibly pathological fracture. The patient will be provided with adequate pain control. Neurosurgical consult was obtained. The patient was unable to complete the MRI imaging of the thoracic and lumbar spine as requested by neurosurgery. 5. Fluids, electrolytes, and nutrition. Regular diet. Currently NPO for biopsy. 6. DVT prophylaxis. Bilateral sequential compression devices. 7. Plan. Await biopsy. Case discussed with Dr. Bobby. Case discussed with Oncology. Problems: Subjective 24 Hr Interval Summary Free Text/Dictation The patient very frustrated because of staying NPO. Exam/Review of Systems Vital Signs Vitals Vital Signs Date Time Temp Pulse Resp B/P Pulse Ox O2 Delivery O2 Flow Rate FiO2 01/05/17 08:18 103 01/05/17 07:32 98.3 20 131/64 92 01/03/17 13:03 Room Air 01/02/17 14:45 21 Intake and Output 01/04/17 01/04/17 01/05/17 15:00 23:00 07:00 Intake Total 250 ml 450 ml Balance 250 ml 450 ml Exam General: Adequately build 66 year-old female lying in bed in no apparent distress. HEENT: Normocephalic, atraumatic. Eyes: Anicteric sclerae, conjunctivae clear. ENT: Nasal septum midline, oral mucosa moist. Neck supple, no JVD noticed. Respiratory: Bilaterally diminished breath sounds. No use of accessory muscles of respiration. Cardiovascular: S1, S2 heard. No murmurs or gallops. Abdomen: Soft, nontender, and nondistended. Bowel sounds positive in all 4 quadrants. Genitourinary: Deferred. Extremities: No cyanosis, no clubbing, no edema. Peripheral pulses palpable. Neurologic: Cranial nerves II through XII grossly intact. The patient is awake, alert, and oriented. Skin: Normal skin turgor. No skin rashes. Results Result Diagram: 01/04/1763501/04/17635 Medications Medications Current Medications Ondansetron HCl (Zofran Inj) 4 mg Q6H PRN IV NAUSEA AND/OR VOMITING; Start at 21:00 Acetaminophen (Tylenol Tab) 650 mg Q6H PRN PO PAIN LEVEL 1-3 OR FEVER; Start 01/01/17 at 21:00 Famotidine (Pepcid) 20 mg Q12 PO Last administered on 01/04/17 21:00; Admin Dose 20 MG; Start 01/01/17 at 21:00 Atorvastatin Calcium 40 mg 40 mg DAILY PO Last administered on 01/04/17 09:19 ; Admin Dose 40 MG; Start 01/02/17 at 09:00 Levofloxacin/ Dextrose 150 ml @ 100 mls/hr Q24H IVPB Last administered on 21:00; Admin Dose 100 MLS/HR; Start 01/01/17 at 21:30 Ferric Sodium Gluconate Complex/ Sodium Chloride (Ferrlecit/NS) 110 ml @ 110 mls/hr Q24H IVPB Last administered on 01/04/17 14:33; Admin Dose 110 MLS/HR; Start 01/02/17 at 14:00; Stop 01/06/17 at 14:59 Hydromorphone HCl (Dilaudid) 2 mg Q4H PRN PO PAIN Last administered on 06:36; Admin Dose 2 MG; Start 01/03/17 at 08:00 Senna/Docusate Sodium (Senokot-S) 1 tab AM PO Last administered on 01/04/17 09:19; Admin Dose 1 TAB; Start 01/03/17 at 09:00 Ibuprofen (Motrin) 600 mg BID PO Last administered on 01/04/17 21:00; Admin Dose 600 MG; Start 01/03/17 at 11:00 Pantoprazole (Protonix Tab) 40 mg DAILY@06 PO Last administered on 01/04/17 05:36; Admin Dose 40 MG; Start 01/03/17 at 11:00 Dexamethasone (Decadron) 6 mg Q6 IV Last administered on 01/05/17 06:14; Admin Dose 6 MG; Start 01/03/17 at 12:00 ROXANN JACKSON NP Jan 05, 2017 09:39
[2017-01-05] MEDS: IBUPROFEN 600 MG TAB PO SCH ×2 (09:49→21:40)
[2017-01-05] MEDS: SENNA/DOCUSATE NA (8.6MG/50MG) TAB PO SCH (09:49)
[2017-01-05] MEDS: ATORVASTATIN 20 MG TAB PO SCH (09:49)
[2017-01-05] MEDS: FAMOTIDINE 20 MG TAB PO SCH ×2 (09:50→21:40)
[2017-01-05] MEDS ORDERED: SOD CHLORIDE 0.9% 1,000 ML IV ONE (10:00)
[2017-01-05] MEDS: SOD FERRIC GLUC COMPLX 125 MG in SOD CHLORIDE 0.9% 100 ML IVPB SCH (14:00)
[2017-01-05] MEDS ORDERED: IOHEXOL 300MG/ML 150 ML BTL ONE (15:40)
[2017-01-05] MEDS ORDERED: SOD CHLORIDE 0.9% 100 ML ONE (15:40)
--- NOTE | 2017-01-05 17:14 | RADRPT ---
PROCEDURE: CT Head without. CLINICAL INDICATION: Headache, evaluate for metastatic disease. TECHNIQUE: The study was performed utilizing a multi-slice, multidetector CT scanner. 100 ccs of V isipaque 320 within the left complication. Direct spiral 1 mm axial sections were obtained through t he head without the use of intravenous contrast material. 1 or more of the following dose reduction techniques were utilized: Automated exposure control, adjustment of the mA and/or kV according to patient's size, iterative reconstruction technique. Coronal and sagittal reformations were obtained . The images were reviewed on a PACS workstation. RADIATION DOSE: CTDIvol: 44.1 mGyDLP: 1260.4 mGy-cm COMPARISON: No prior studies are available for comparison. FINDINGS: There is no intracranial hemorrhage, extra-axial fluid collection, mass lesion, midline shift or hyd rocephalus. The ventricles, sulci and cisterns are within normal limits. The white matter is unrem arkable. The posadas-white matter differentiation is preserved. The basal cisterns are patent. The p ostcontrast images demonstrate no abnormal parenchymal, leptomeningeal or dural enhancement.. The mi dline structures are intact. The orbits, calvarium and extracranial soft tissues are normal in appe arance. The visualized paranasal sinuses, mastoid air cells and middle ear cavities are normally aer ated. There is pneumatization of the bilateral petrous apices without evidence of inflammatory hathaway es, normal variant. IMPRESSION: 1. No acute intracranial abnormality. No intracranial hemorrhage, extra-axial fluid collection, en hancing mass lesion or hydrocephalous. 2. No evidence of metastatic disease at this time. RPTAT: HGAS .Charles Hawk MD, MD Date Time Electronically viewed and signed by .Charles Hawk MD, MD on 01/05/2017 17:13 .S/
[2017-01-05] MEDS: LEVOFLOXACIN 750MG/D5W (PMX) 150 ML IVPB SCH (21:23)
[2017-01-06] VITALS (10 sets, daily range): BP systolic 104–129; BP diastolic 56–68; PULSE 77–98; RESP 16–20
[2017-01-06] MEDS: DEXAMETHASONE 4 MG/ML 1 ML INJ IV SCH ×4 (00:57→18:33)
[2017-01-06] MEDS: HYDROmorphONE 2 MG TAB PO PRN ×2 (04:40→19:51)
[2017-01-06] MEDS: PANTOPRAZOLE (EC) 40 MG TAB PO SCH (05:18)
[2017-01-06] MEDS: FAMOTIDINE 20 MG TAB PO SCH ×2 (08:26→21:49)
[2017-01-06] MEDS: ATORVASTATIN 20 MG TAB PO SCH (08:26)
[2017-01-06] MEDS: SENNA/DOCUSATE NA (8.6MG/50MG) TAB PO SCH (08:26)
[2017-01-06] MEDS: IBUPROFEN 600 MG TAB PO SCH ×2 (08:26→21:49)
[2017-01-06] MEDS: SOD FERRIC GLUC COMPLX 125 MG in SOD CHLORIDE 0.9% 100 ML IVPB SCH (14:41)
--- NOTE | 2017-01-06 16:09 | PN ---
Date/Time of Note Date/Time of Note DATE: 01/06/17 TIME: 16:06 Assessment/Plan VTE Prophylaxis VTE Prophylaxis Intervention: SCD's Lines/Catheters IV Catheter Type (from [facility], [place]): Saline Lock Urinary Cath still in place: No Assessment/Plan Chief Complaint/Hosp Course 1. Symptomatic anemia. Etiology unclear. Iron panel showing iron deficiency. Continue iron supplements. Status post PRBC transfusion. Continue PRBC transfusions as appropriate. The patient's CT scan showing evidence of numerous lytic lesions along with left adrenal nodule/mass, enlarged subaortic and left perihilar lymph nodes suggestive of metastatic disease. Oncology evaluation ongoing. Plan for CT-guided biopsy of L2 vertebral body mass. 2. Intermediate reticulonodular pulmonary opacities suggesting bronchiolitis/ bronchopneumonia. Continue antibiotics. 3. Pulmonary emphysema. The patient is a chronic smoker. Continue as needed inhaled bronchodilators. Start maintenance inhalers. 4. Acute to subacute severe compression fracture of T2. Possibly pathological fracture. The patient will be provided with adequate pain control. Neurosurgical consult was obtained. The patient was unable to complete the MRI imaging of the thoracic and lumbar spine as requested by neurosurgery. 5. Leukocytosis. Etiology unclear. Remains afebrile. Monitor. 6. Fluids, electrolytes, and nutrition. Regular diet. 7. DVT prophylaxis. Bilateral sequential compression devices. 8. Plan. Await biopsy. As per report, IR is unable to do the biopsy over the weekend. Case discussed with Dr. Bobby. Problems: Subjective 24 Hr Interval Summary Free Text/Dictation The patient verbalized improved RLE and back pain. Exam/Review of Systems Vital Signs Vitals Vital Signs Date Time Temp Pulse Resp B/P Pulse Ox O2 Delivery O2 Flow Rate FiO2 01/06/17 15:27 21 01/06/17 15:07 97.5 93 18 117/56 95 01/03/17 13:03 Room Air Intake and Output 01/05/17 01/05/17 01/06/17 15:00 23:00 07:00 Intake Total 720 ml 400 ml Balance 720 ml 400 ml Exam General: Adequately build 66 year-old female lying in bed in no apparent distress. HEENT: Normocephalic, atraumatic. Eyes: Anicteric sclerae, conjunctivae clear. ENT: Nasal septum midline, oral mucosa moist. Neck supple, no JVD noticed. Respiratory: Bilaterally diminished breath sounds. No use of accessory muscles of respiration. Cardiovascular: S1, S2 heard. No murmurs or gallops. Abdomen: Soft, nontender, and nondistended. Bowel sounds positive in all 4 quadrants. Genitourinary: Deferred. Extremities: No cyanosis, no clubbing, no edema. Peripheral pulses palpable. Neurologic: Cranial nerves II through XII grossly intact. The patient is awake, alert, and oriented. Skin: Normal skin turgor. No skin rashes. Results Result Diagram: 01/06/17 1017 01/06/17 1017 Results 24 hrs Laboratory Tests Test 01/06/17 10:17 White Blood Count 19.2 #H Red Blood Count 3.54 L Hemoglobin 9.5 L Hematocrit 31.4 L Mean Corpuscular Volume 88.7 Mean Corpuscular Hemoglobin 26.8 L Mean Corpuscular Hemoglobin Concent 30.3 L Red Cell Distribution Width 17.4 H Platelet Count 436 H Mean Platelet Volume 9.3 Neutrophils % 89.5 H Lymphocytes % 4.1 L Monocytes % 4.8 Eosinophils % 0.0 Basophils % 0.1 Nucleated Red Blood Cells % 0.0 Neutrophils # 17.2 H Lymphocytes # 0.8 Monocytes # 0.9 Eosinophils # 0.0 Basophils # 0.0 Nucleated Red Blood Cells # 0.0 Sodium Level 137 Potassium Level 5.1 Chloride Level 104 Carbon Dioxide Level 27 Anion Gap 11 Blood Urea Nitrogen 27 H Creatinine 0.70 Glucose Level 109 Calcium Level 9.8 Total Bilirubin 0.4 Direct Bilirubin 0.00 Indirect Bilirubin 0.4 Aspartate Amino Transf (AST/SGOT) 31 Alanine Aminotransferase (ALT/SGPT) 31 Alkaline Phosphatase 163 H Total Protein 6.7 Albumin 3.1 L Globulin 3.60 H Albumin/Globulin Ratio 0.86 Medications Medications Current Medications Ondansetron HCl (Zofran Inj) 4 mg Q6H PRN IV NAUSEA AND/OR VOMITING; Start at 21:00 Acetaminophen (Tylenol Tab) 650 mg Q6H PRN PO PAIN LEVEL 1-3 OR FEVER; Start 01/01/17 at 21:00 Famotidine (Pepcid) 20 mg Q12 PO Last administered on 01/06/17 08:26; Admin Dose 20 MG; Start 01/01/17 at 21:00 Atorvastatin Calcium 40 mg 40 mg DAILY PO Last administered on 01/06/17 08:26 ; Admin Dose 40 MG; Start 01/02/17 at 09:00 Levofloxacin/ Dextrose (Levaquin 750 Mg/ D5W 150 ml (Pmx)) 150 ml @ 100 mls/hr Q24H IVPB Last administered on 01/05/17 21:23; Admin Dose 100 MLS/HR; Start 01/01/17 at 21:30 Hydromorphone HCl (Dilaudid) 2 mg Q4H PRN PO PAIN Last administered on 04:40; Admin Dose 2 MG; Start 01/03/17 at 08:00 Senna/Docusate Sodium (Senokot-S) 1 tab AM PO Last administered on 01/06/17 08:26; Admin Dose 1 TAB; Start 01/03/17 at 09:00 Ibuprofen (Motrin) 600 mg BID PO Last administered on 01/06/17 08:26; Admin Dose 600 MG; Start 01/03/17 at 11:00 Pantoprazole (Protonix Tab) 40 mg DAILY@06 PO Last administered on 01/06/17 05:18; Admin Dose 40 MG; Start 01/03/17 at 11:00 Dexamethasone (Decadron) 6 mg Q6 IV Last administered on 01/06/17 12:01; Admin Dose 6 MG; Start 01/03/17 at 12:00 Salmeterol Xinafoate/ Fluticasone (Advair 250/50 Diskus) 1 inh BID INH ; Start 01/06/17 at 21:00; Status ROXANN GUERRERO NP Jan 06, 2017 16:09
[2017-01-06] MEDS: SALMETEROL/FLUTICASONE 250/50 INHA INH SCH ×2 (21:00→21:50)
[2017-01-06] MEDS: LEVOFLOXACIN 750MG/D5W (PMX) 150 ML IVPB SCH (22:49)
--- NOTE | 2017-01-06 23:27 | CONS ---
Date/Time of Note Date/Time of Note DATE: 01/04/17 TIME: 15:00 Assessment/Plan Assessment/Plan Additional Assessment/Plan Date of consultation: 01/04/2017 Requesting physician: Chase Mar NP with the hospitalist service Consulting service: Neurosurgery This is a 66-year-old female with several month history of generalized weakness and right lower extremity radiating pain and low back pain who presented to another emergency department and was subsequently transferred to [facility] for further evaluation and management. The patient was found to be anemic of unknown etiology. As part of workup the patient has had MRI of the thoracic and lumbar spine with some findings concerning for metastatic lesions involving the vertebral bodies and neurosurgery is being consulted. The patient denies focal weakness of her upper or lower extremities. She says that the right lower extremity radiating pain has improved since being admitted to the hospital. She denies any difficulty with walking. She denies bowel or bladder dysfunction. She denies any recent trauma to her neck, mid back or low back. 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 She denies use of alcohol or illicit or recreational drugs. Review of systems: The patient denies shortness of breath, chest pain. She denies numbness or paresthesias of her upper or lower extremities. Allergies: No known drug allergies Physical examination: The patient is seen at bedside next to her nurse. She is awake alert and oriented 4. She appears to be comfortable. Face is symmetric. Tongue is midline. Language is fluent. Muscle bulk and tone is normal bilateral upper and lower extremities. Sensation to light touch seems to be grossly normal bilateral upper and lower activities. Motor strength is at least 4 out of 5 bilateral upper and lower extremities but is limited secondary to diffuse body ache. Deep tendon reflexes are 1+ bilateral upper and lower activities. Straight leg raise more than 30 causes low back pain but no radiating pain down the patient's lower extremities. Gait testing is been deferred per patient request. Imaging: The patient has a CT of the chest with sagittal and coronal reconstruction views that shows a significant T2 compression fracture that is possibly pathologic in nature without significant retropulsion or canal compression. There is also a lytic lesion in the L2 vertebral body that is also concerning for a tumor or metastases. The patient also has other areas of abnormal findings involving the visualized skeleton including the ribs that is concerning for metastases. The patient's MRI of the thoracic and lumbar spine that could not be completed with and without contrast secondary to the patient not wanting to proceed with the studies show various abnormal signals within the patient's vertebral bodies involving the cervical, thoracic and lumbar spine as well as the pelvis concerning for metastases. There is no evidence of canal compression or cord compression involving the cervical, thoracic or lumbar spine. There is no significant nerve root compression noted. Assessment/plan: The patient's above findings are concerning for metastases. At this point the source of a primary cancer is unknown. The patient does not have any focal neurologic deficit and does not have any evidence of cord compression or nerve root compression. There is no acute neurosurgical intervention indicated at this point. The patient is scheduled for an IR guided biopsy of the lumbar vertebral lesion which is very appropriate in the setting. She has already been evaluated via hematology oncology service but further management recommendations are pending the pathology findings from the biopsy. I have communicated my findings to the nurse practitioner Chase Mar. MALOU THOMSON MD Jan 06, 2017 23:27
[2017-01-07] MEDS: DEXAMETHASONE 4 MG/ML 1 ML INJ IV SCH ×4 (00:13→17:24)
[2017-01-07] MEDS: HYDROmorphONE 2 MG TAB PO PRN ×4 (02:09→22:11)
[2017-01-07 02:12] VITALS: BP 113/56; RESP 18
[2017-01-07] MEDS: PANTOPRAZOLE (EC) 40 MG TAB PO SCH (05:32)
[2017-01-07 08:03] VITALS: BP 134/65; RESP 18
[2017-01-07] MEDS: IBUPROFEN 600 MG TAB PO SCH ×4 (08:44→21:15)
[2017-01-07] MEDS: FAMOTIDINE 20 MG TAB PO SCH ×2 (08:44→21:14)
[2017-01-07] MEDS: SENNA/DOCUSATE NA (8.6MG/50MG) TAB PO SCH (08:44)
[2017-01-07] MEDS: ATORVASTATIN 20 MG TAB PO SCH (08:44)
[2017-01-07] MEDS: SALMETEROL/FLUTICASONE 250/50 INHA INH SCH ×2 (08:45→21:00)
--- NOTE | 2017-01-07 11:15 | PN ---
Date/Time of Note Date/Time of Note DATE: 01/07/17 TIME: 11:14 Assessment/Plan VTE Prophylaxis VTE Prophylaxis Intervention: SCD's Lines/Catheters [facility] Type [facility] Saline Lock Urinary Cath still in place: No Assessment/Plan Chief Complaint/Hosp Course 1. Symptomatic anemia. Etiology unclear. Iron panel showing iron deficiency. Continue iron supplements. Status post PRBC transfusion. Continue PRBC transfusions as appropriate. The patient's CT scan showing evidence of numerous lytic lesions along with left adrenal nodule/mass, enlarged subaortic and left perihilar lymph nodes suggestive of metastatic disease. Oncology evaluation ongoing. Plan for CT-guided biopsy of L2 vertebral body mass. 2. Intermediate reticulonodular pulmonary opacities suggesting bronchiolitis/ bronchopneumonia. Continue antibiotics. 3. Pulmonary emphysema. The patient is a chronic smoker. Continue as needed inhaled bronchodilators. Start maintenance inhalers. 4. Acute to subacute severe compression fracture of T2. Possibly pathological fracture. The patient will be provided with adequate pain control. Neurosurgical consult was obtained. The patient was unable to complete the MRI imaging of the thoracic and lumbar spine as requested by neurosurgery. 5. Leukocytosis. Etiology could be from underlying steroids. Remains afebrile. Monitor. 6. Fluids, electrolytes, and nutrition. Regular diet. 7. DVT prophylaxis. Bilateral sequential compression devices. 8. Plan. Await biopsy. As per report, IR is unable to do the biopsy over the weekend. Plan for biopsy on Sunday. NPO after midnight. Case discussed with Dr. Bobby. Problems: Subjective 24 Hr Interval Summary Free Text/Dictation Complains of pain. Asking for pain medications. Exam/Review of Systems Vital Signs Vitals Vital Signs Date Time Temp Pulse Resp B/P Pulse Ox O2 Delivery O2 Flow Rate FiO2 01/07/17 08:03 98.4 80 18 134/65 94 01/06/17 15:27 21 01/03/17 13:03 Room Air Intake and Output 01/06/17 01/06/17 01/07/17 15:00 23:00 07:00 Intake Total 630 ml Output Total 700 ml Balance -70 ml Exam General: Adequately build 66 year-old female lying in bed in no apparent distress. HEENT: Normocephalic, atraumatic. Eyes: Anicteric sclerae, conjunctivae clear. ENT: Nasal septum midline, oral mucosa moist. Neck supple, no JVD noticed. Respiratory: Bilaterally diminished breath sounds. No use of accessory muscles of respiration. Cardiovascular: S1, S2 heard. No murmurs or gallops. Abdomen: Soft, nontender, and nondistended. Bowel sounds positive in all 4 quadrants. Genitourinary: Deferred. Extremities: No cyanosis, no clubbing, no edema. Peripheral pulses palpable. Neurologic: Cranial nerves II through XII grossly intact. The patient is awake, alert, and oriented. Skin: Normal skin turgor. No skin rashes. Results Result Diagram: 01/07/1746 01/07/1746 Results 24 hrs Laboratory Tests Test 01/07/17 05:45 01/07/17 05:46 Lab Scanned Report BLOOD TRANSFUSION White Blood Count 17.1 H Red Blood Count 3.50 L Hemoglobin 9.5 L Hematocrit 31.1 L Mean Corpuscular Volume 88.9 Mean Corpuscular Hemoglobin 27.1 L Mean Corpuscular Hemoglobin Concent 30.5 L Red Cell Distribution Width 17.9 H Platelet Count 399 Mean Platelet Volume 9.2 Neutrophils % 87.4 H Lymphocytes % 5.2 L Monocytes % 6.3 Eosinophils % 0.1 Basophils % 0.1 Nucleated Red Blood Cells % 0.1 H Neutrophils # 14.9 H Lymphocytes # 0.9 Monocytes # 1.1 H Eosinophils # 0.0 Basophils # 0.0 Nucleated Red Blood Cells # 0.0 Sodium Level 135 Potassium Level 4.5 Chloride Level 104 Carbon Dioxide Level 25 Anion Gap 11 Blood Urea Nitrogen 25 H Creatinine 0.66 Glucose Level 100 Calcium Level 9.4 Phosphorus Level 3.6 Magnesium Level 2.0 Total Bilirubin 0.3 Direct Bilirubin 0.00 Indirect Bilirubin 0.3 Aspartate Amino Transf (AST/SGOT) 24 Alanine Aminotransferase (ALT/SGPT) 35 Alkaline Phosphatase 145 H Total Protein 6.2 Albumin 2.9 L Globulin 3.30 H Albumin/Globulin Ratio 0.87 Medications Medications Current Medications Ondansetron HCl (Zofran Inj) 4 mg Q6H PRN IV NAUSEA AND/OR VOMITING; Start at 21:00 Acetaminophen (Tylenol Tab) 650 mg Q6H PRN PO PAIN LEVEL 1-3 OR FEVER Last administered on 01/06/17t 16:10; Admin Dose 650 MG; Start 01/01/17 at 21:00 Famotidine (Pepcid) 20 mg Q12 PO Last administered on 01/07/17 08:44; Admin Dose 20 MG; Start 01/01/17 at 21:00 Atorvastatin Calcium 40 mg 40 mg DAILY PO Last administered on 01/07/17 08:44 ; Admin Dose 40 MG; Start 01/02/17 at 09:00 Levofloxacin/ Dextrose (Levaquin 750 Mg/ D5W 150 ml (Pmx)) 150 ml @ 100 mls/hr Q24H IVPB Last administered on 01/06/17 22:49; Admin Dose 100 MLS/HR; Start 01/01/17 at 21:30 Hydromorphone HCl (Dilaudid) 2 mg Q4H PRN PO PAIN Last administered on 08:44; Admin Dose 2 MG; Start 01/03/17 at 08:00 Senna/Docusate Sodium (Senokot-S) 1 tab AM PO Last administered on 01/07/17 08:44; Admin Dose 1 TAB; Start 01/03/17 at 09:00 Ibuprofen (Motrin) 600 mg BID PO Last administered on 01/06/17 21:49; Admin Dose 600 MG; Start 01/03/17 at 11:00 Pantoprazole (Protonix Tab) 40 mg DAILY@06 PO Last administered on 01/07/17 05:32; Admin Dose 40 MG; Start 01/03/17 at 11:00 Dexamethasone (Decadron) 6 mg Q6 IV Last administered on 01/07/17 05:32; Admin Dose 6 MG; Start 01/03/17 at 12:00 Salmeterol Xinafoate/ Fluticasone (Advair 250/50 Diskus) 1 inh BID INH ; Start 01/06/17 at 21:00 ROXANN JACKSON NP Jan 07, 2017 11:15
[2017-01-07] MEDS: POLYETHYLENE GLYCOL 17 GM PACKET PO SCH ×2 (11:22→21:15)
[2017-01-07 14:33] VITALS: BP 128/62; RESP 19
[2017-01-07 20:39] VITALS: BP 120/70; RESP 16
[2017-01-07] MEDS: LEVOFLOXACIN 750MG/D5W (PMX) 150 ML IVPB SCH (21:22)
[2017-01-08] VITALS (16 sets, daily range): BP systolic 115–145; BP diastolic 58–82; PULSE 72–80; RESP 12–22
[2017-01-08] MEDS: DEXAMETHASONE 4 MG/ML 1 ML INJ IV SCH ×4 (00:16→17:16)
[2017-01-08] MEDS: HYDROmorphONE 2 MG TAB PO PRN ×3 (03:54→22:40)
[2017-01-08] MEDS: PANTOPRAZOLE (EC) 40 MG TAB PO SCH (05:18)
[2017-01-08] MEDS: FAMOTIDINE 20 MG TAB PO SCH ×2 (09:00→20:22)
[2017-01-08] MEDS: POLYETHYLENE GLYCOL 17 GM PACKET PO SCH ×2 (09:00→20:23)
[2017-01-08] MEDS: ATORVASTATIN 20 MG TAB PO SCH (09:00)
[2017-01-08] MEDS: IBUPROFEN 600 MG TAB PO SCH ×2 (09:00→20:22)
[2017-01-08] MEDS: SALMETEROL/FLUTICASONE 250/50 INHA INH SCH ×2 (09:00→20:22)
[2017-01-08] MEDS: SENNA/DOCUSATE NA (8.6MG/50MG) TAB PO SCH (09:00)
[2017-01-08] MEDS ORDERED: LIDOCAINE 1% (MPF) 5 ML VIAL ONE (09:01)
--- NOTE | 2017-01-08 09:53 | PN ---
Date/Time of Note Date/Time of Note DATE: 01/08/17 TIME: 09:53 Assessment/Plan VTE Prophylaxis VTE Prophylaxis Intervention: SCD's Lines/Catheters IV [facility]ter Type (from [facility] Saline Lock Urinary Cath still in place: No Assessment/Plan Chief Complaint/Hosp Course Assessment and plan 1. Symptomatic anemia. Patient with iron deficiency anemia. Continue iron supplement. Patient also status post PRBC transfusion. Monitor H&H. 2. Lytic lesion with left adrenal nodule/mass and subaortic and left perihilar lymph nodes enlargement suspect of metastatic disease. Oncologist following. Tentative plan for L2 vertebral body mass biopsy 3. Acute to subacute severe compression fracture of T2. Suspect pathologic. Neurosurgeon following. Follow-up with recommendations. Of note patient was planned for MRI of thoracic spine and lumbar spine for further evaluation but patient unable to complete test. Will follow up. 4. History of pulmonary emphysema. Patient is a chronic smoker. Continue bronchodilators as needed. Smoking cessation was advised. 5. Leukocytosis. Suspect from underlying steroids. Monitor for now. Disposition and plan: Tentative plan for biopsy of L2 vertebral body mass. Will follow up. Discussed plan of care with Dr. Gonzalez Problems: Subjective 24 Hr Interval Summary Free Text/Dictation Still reports having some back pain. Unchanged. Still able to ambulate Exam/Review of Systems Vital Signs Vitals Vital Signs Date Time Temp Pulse Resp B/P Pulse Ox O2 Delivery O2 Flow Rate FiO2 01/08/17 08:00 98.5 74 18 136/62 95 01/06/17 15:27 21 Intake and Output 01/07/17 01/07/17 01/08/17 15:00 23:00 07:00 Intake Total 1200 ml 480 ml Balance 1200 ml 480 ml Exam Constitutional: alert, oriented Psych: anxiety Head: normocephalic Eyes: nl conjunctiva Respiratory: clear to auscultation, normal air movement Cardiovascular: other (regular rate) Gastrointestinal: non-tender, soft Musculoskeletal: nl extremities to inspection 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: MEDICAL CONSULTANT II-XII intact, nl mental status Skin: nl turgor Results Result Diagram: 01/08/1743901/08/17439 Results 24 hrs Laboratory Tests Test 01/08/17 04:40 White Blood Count 17.0 H Red Blood Count 3.75 L Hemoglobin 9.9 L Hematocrit 33.2 L Mean Corpuscular Volume 88.5 Mean Corpuscular Hemoglobin 26.4 L Mean Corpuscular Hemoglobin Concent 29.8 L Red Cell Distribution Width 18.5 H Platelet Count 388 Mean Platelet Volume 9.6 Neutrophils % 87.2 H Lymphocytes % 4.9 L Monocytes % 7.0 Eosinophils % 0.0 Basophils % 0.1 Nucleated Red Blood Cells % 0.0 Neutrophils # 14.8 H Lymphocytes # 0.8 Monocytes # 1.2 H Eosinophils # 0.0 Basophils # 0.0 Nucleated Red Blood Cells # 0.0 Prothrombin Time 16.1 H Prothrombin Time Ratio 1.3 INR International Normalized Ratio 1.28 Activated Partial Thromboplast Time 27.3 Sodium Level 134 L Potassium Level 4.3 Chloride Level 101 Carbon Dioxide Level 25 Anion Gap 12 Blood Urea Nitrogen 23 H Creatinine 0.65 Glucose Level 101 Calcium Level 9.1 Phosphorus Level 3.9 Magnesium Level 2.0 Medications Medications Current Medications Ondansetron HCl (Zofran Inj) 4 mg Q6H PRN IV NAUSEA AND/OR VOMITING; Start at 21:00 Acetaminophen (Tylenol Tab) 650 mg Q6H PRN PO PAIN LEVEL 1-3 OR FEVER Last administered on 01/06/17 16:10; Admin Dose 650 MG; Start 01/01/17 at 21:00 Famotidine (Pepcid) 20 mg Q12 PO Last administered on 01/07/17 21:14; Admin Dose 20 MG; Start 01/01/17 at 21:00 Atorvastatin Calcium 40 mg 40 mg DAILY PO Last administered on 01/07/17 08:44 ; Admin Dose 40 MG; Start 01/02/17 at 09:00 Levofloxacin/ Dextrose (Levaquin 750 Mg/ D5W 150 ml (Pmx)) 150 ml @ 100 mls/hr Q24H IVPB Last administered on 01/07/17 21:22; Admin Dose 100 MLS/HR; Start 01/01/17 at 21:30 Hydromorphone HCl (Dilaudid) 2 mg Q4H PRN PO PAIN Last administered on 03:54; Admin Dose 2 MG; Start 01/03/17 at 08:00 Senna/Docusate Sodium (Senokot-S) 1 tab AM PO Last administered on 01/07/17 08:44; Admin Dose 1 TAB; Start 01/03/17 at 09:00 Ibuprofen (Motrin) 600 mg BID PO Last administered on 01/07/17 21:15; Admin Dose 600 MG; Start 01/03/17 at 11:00 Pantoprazole (Protonix Tab) 40 mg DAILY@06 PO Last administered on 01/07/17 05:32; Admin Dose 40 MG; Start 01/03/17 at 11:00 Dexamethasone (Decadron) 6 mg Q6 IV Last administered on 01/08/17 06:48; Admin Dose 6 MG; Start 01/03/17 at 12:00 Salmeterol Xinafoate/ Fluticasone (Advair 250/50 Diskus) 1 inh BID INH ; Start 01/06/17 at 21:00 Polyethylene Glycol (Miralax) 17 gm BID PO Last administered on 01/07/17 21: 15; Admin Dose 17 GM; Start 01/07/17 at 11:30 Bisacodyl (Dulcolax) 10 mg DAILY PRN PO CONSTIPATION; Start 01/07/17 at 11:30 TAMI LINDSEY Jan 08, 2017 09:53
[2017-01-08] MEDS ORDERED: FENTAnyl 50 MCG/ML VIAL ONE ×2 (10:18→10:45)
[2017-01-08] MEDS ORDERED: PROPOFOL 0 ML ONE (10:18)
[2017-01-08] MEDS ORDERED: MIDAZOLAM 1 MG/ML 2 ML INJ ONE (10:18)
[2017-01-08] MEDS ORDERED: EPHEDrine SULFATE 50 MG/5 ML SYG ONE (10:19)
[2017-01-08] MEDS ORDERED: LIDOCAINE 1% (MDV) 20 ML INJ ONE (10:29)
[2017-01-08] MEDS ORDERED: PROPOFOL 20 ML ONE (10:45)
--- NOTE | 2017-01-08 11:35 | RADRPT ---
PROCEDURE: CT guided L2 vertebral biopsy. CLINICAL INDICATION: L2 vertebral body mass. History of squamous cell cancer. TECHNIQUE: Informed consent was obtained. The procedure, risks, benefits, complications and alternatives were e xplained to the patient. Risks including bleeding and infection were explained. The patient understo od and was willing to proceed. A procedural pause was performed. The patient's name, date of , and procedure to be performed were verified. One or more of the following dose reduction techniqu es were used: Automated exposure control, adjustment of the mA and/or kV according to patient size, use of iterative reconstruction technique. Using local anesthetic, sterile technique and CT guidance, a 20-gauge automated core biopsy needle w as used to biopsy the mass in the right side of the L2 vertebra. Multiple passes were made. [place] te tissue was obtained according to the pathologist present during the procedure. The needle was re moved. A postprocedural scan was performed. A dressing was applied. The patient tolerated procedure well. COMPARISON: MRI of the thoracic spine dated 01/02/2017. MRI of the lumbar spine dated 01/02/2017. CT scan of the chest dated 01/02/2017. FINDINGS: Initial images demonstrate the tip of the needle at the edge of the lesion in the right side of the L2 vertebra. Post biopsy images demonstrate no immediate complication. IMPRESSION: 1. Successful CT guided biopsy of L2 vertebral mass. RPTAT: QQ .Perfecto Bailey MD, MD Date Time Electronically viewed and signed by .Perfecto Bailey MD, MD on 01/08/2017 11:34 .R/
[2017-01-08] MEDS ORDERED: HYDROmorphONE (0.2 MG/ML) 10ML SYG IV ONE (11:44)
[2017-01-08] MEDS ORDERED: MEPERIDINE 25 MG INJ IV PRN (12:00)
[2017-01-08] MEDS ORDERED: ONDANSETRON 4 MG INJ IV PRN (12:00)
[2017-01-08] MEDS ORDERED: HYDROmorphONE (0.2 MG/ML) 10ML SYG IV PRN ×3 (12:00)
[2017-01-08] MEDS ORDERED: DIPHENHYDRAMINE 50 MG INJ IV PRN (12:00)
[2017-01-08] MEDS: BISACODYL (EC) 5 MG TAB PO PRN (17:16)
[2017-01-08] MEDS: LEVOFLOXACIN 750MG/D5W (PMX) 150 ML IVPB SCH (20:31)
[2017-01-09] MEDS: DEXAMETHASONE 4 MG/ML 1 ML INJ IV SCH ×4 (01:08→17:32)
[2017-01-09 02:05] VITALS: BP 110/71; RESP 18
[2017-01-09] MEDS: PANTOPRAZOLE (EC) 40 MG TAB PO SCH (05:08)
[2017-01-09 07:49] VITALS: BP 115/55; RESP 20
[2017-01-09] MEDS: HYDROmorphONE 2 MG TAB PO PRN ×2 (07:52→17:32)
[2017-01-09] MEDS: SALMETEROL/FLUTICASONE 250/50 INHA INH SCH ×2 (09:00→21:00)
[2017-01-09] MEDS: IBUPROFEN 600 MG TAB PO SCH ×2 (10:07→22:19)
[2017-01-09] MEDS: POLYETHYLENE GLYCOL 17 GM PACKET PO SCH ×2 (10:08→22:21)
[2017-01-09] MEDS: FAMOTIDINE 20 MG TAB PO SCH ×2 (10:08→22:19)
[2017-01-09] MEDS: ATORVASTATIN 20 MG TAB PO SCH (10:08)
[2017-01-09] MEDS: SENNA/DOCUSATE NA (8.6MG/50MG) TAB PO SCH (10:08)
[2017-01-09 14:32] VITALS: BP 108/56; RESP 18
--- NOTE | 2017-01-09 14:55 | PN ---
Date/Time of Note Date/Time of Note DATE: 01/09/17 TIME: 14:53 Assessment/Plan VTE Prophylaxis VTE Prophylaxis Intervention: SCD's Lines/Catheters IV [facility] ([facility] Saline Lock Urinary Cath still in place: No Assessment/Plan Chief Complaint/Hosp Course Assessment and plan 1. Symptomatic anemia. Patient with iron deficiency anemia. Continue iron supplement. Patient also status post PRBC transfusion. Monitor H&H. 2. Lytic lesion with left adrenal nodule/mass and subaortic and left perihilar lymph nodes enlargement suspect of metastatic disease. Oncologist following. s /p L2 vertebral body mass biopsy. follow up result 3. Acute to subacute severe compression fracture of T2. Suspect pathologic. Neurosurgeon following. Follow-up with recommendations. Of note patient was planned for MRI of thoracic spine and lumbar spine for further evaluation but patient unable to complete test. Will follow up. 4. History of pulmonary emphysema. Patient is a chronic smoker. Continue bronchodilators as needed. Smoking cessation was advised. 5. Leukocytosis. Suspect from underlying steroids. Monitor for now. Disposition and plan: PT ordered. Follow up with physical therapy. Discussed plan of care with Dr. Gonzalez Problems: Subjective 24 Hr Interval Summary Free Text/Dictation reports less back pain today. Exam/Review of Systems Vital Signs Vitals Vital Signs Date Time Temp Pulse Resp B/P Pulse Ox O2 Delivery O2 Flow Rate FiO2 01/09/17 14:32 98.7 100 18 108/56 95 01/08/17 13:00 Room Air 01/08/17 11:59 2.0 01/06/17 15:27 21 Intake and Output 01/08/17 01/08/17 01/09/17 15:00 23:00 07:00 Intake Total 520 ml 870 ml 700 ml Output Total 600 ml Balance 520 ml 270 ml 700 ml Exam Constitutional: alert, oriented Psych: no anxiety Head: normocephalic Eyes: nl conjunctiva Respiratory: clear to auscultation, normal air movement Cardiovascular: other (regular rate) Gastrointestinal: non-tender, soft Musculoskeletal: nl extremities to inspection 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: REGULATORY COMPLIANCE MANAGER II-XII intact, nl mental status Skin: nl turgor Results Result Diagram: 01/09/17 1050 01/09/17 1050 Results 24 hrs Laboratory Tests Test 01/09/17 10:50 White Blood Count 17.9 H Red Blood Count 3.89 L Hemoglobin 10.7 L Hematocrit 34.6 L Mean Corpuscular Volume 88.9 Mean Corpuscular Hemoglobin 27.5 L Mean Corpuscular Hemoglobin Concent 30.9 L Red Cell Distribution Width 19.0 H Platelet Count 332 Mean Platelet Volume 9.3 Neutrophils % 89.5 H Lymphocytes % 4.1 L Monocytes % 5.7 Eosinophils % 0.0 Basophils % 0.1 Nucleated Red Blood Cells % 0.0 Neutrophils # 16.0 H Lymphocytes # 0.7 L Monocytes # 1.0 H Eosinophils # 0.0 Basophils # 0.0 Nucleated Red Blood Cells # 0.0 Sodium Level 135 Potassium Level 4.3 Chloride Level 103 Carbon Dioxide Level 24 Anion Gap 12 Blood Urea Nitrogen 27 H Creatinine 0.66 Glucose Level 170 Calcium Level 9.2 Medications Medications Current Medications Ondansetron HCl (Zofran Inj) 4 mg Q6H PRN IV NAUSEA AND/OR VOMITING; Start at 21:00 Acetaminophen (Tylenol Tab) 650 mg Q6H PRN PO PAIN LEVEL 1-3 OR FEVER Last administered on 01/06/17 16:10; Admin Dose 650 MG; Start 01/01/17 at 21:00 Famotidine (Pepcid) 20 mg Q12 PO Last administered on 01/09/17 10:08; Admin Dose 20 MG; Start 01/01/17 at 21:00 Atorvastatin Calcium 40 mg 40 mg DAILY PO Last administered on 01/09/17 10:08 ; Admin Dose 40 MG; Start 01/02/17 at 09:00 Levofloxacin/ Dextrose (Levaquin 750 Mg/ D5W 150 ml (Pmx)) 150 ml @ 100 mls/hr Q24H IVPB Last administered on 01/08/17 20:31; Admin Dose 100 MLS/HR; Start 01/01/17 at 21:30 Hydromorphone HCl (Dilaudid) 2 mg Q4H PRN PO PAIN Last administered on 07:52; Admin Dose 2 MG; Start 01/03/17 at 08:00 Senna/Docusate Sodium (Senokot-S) 1 tab AM PO Last administered on 01/09/17 10:08; Admin Dose 1 TAB; Start 01/03/17 at 09:00 Ibuprofen (Motrin) 600 mg BID PO Last administered on 01/09/17 10:07; Admin Dose 600 MG; Start 01/03/17 at 11:00 Pantoprazole (Protonix Tab) 40 mg DAILY@06 PO Last administered on 01/09/17 05:08; Admin Dose 40 MG; Start 01/03/17 at 11:00 Dexamethasone (Decadron) 6 mg Q6 IV Last administered on 01/09/17 12:20; Admin Dose 6 MG; Start 01/03/17 at 12:00 Salmeterol Xinafoate/ Fluticasone (Advair 250/50 Diskus) 1 inh BID INH ; Start 01/06/17 at 21:00 Polyethylene Glycol (Miralax) 17 gm BID PO Last administered on 01/09/17 10: 08; Admin Dose 17 GM; Start 01/07/17 at 11:30 Bisacodyl (Dulcolax) 10 mg DAILY PRN PO CONSTIPATION Last administered on 01/08 17:16; Admin Dose 10 MG; Start 01/07/17 at 11:30 TAMI LINDSEY Jan 09, 2017 14:55
[2017-01-09 20:09] VITALS: BP 118/59; RESP 19
[2017-01-09] MEDS: HYDROmorphONE 2 MG/ML SYG IV PRN (20:41)
[2017-01-09] MEDS: LEVOFLOXACIN 750MG/D5W (PMX) 150 ML IVPB SCH (22:19)
[2017-01-10] MEDS: DEXAMETHASONE 4 MG/ML 1 ML INJ IV SCH ×4 (00:57→17:31)
[2017-01-10 02:10] VITALS: BP 108/55; RESP 17
[2017-01-10] MEDS: PANTOPRAZOLE (EC) 40 MG TAB PO SCH (05:31)
[2017-01-10] MEDS: HYDROmorphONE 2 MG TAB PO PRN ×3 (05:36→17:31)
[2017-01-10 07:52] VITALS: BP 113/55; RESP 16
[2017-01-10] MEDS: SALMETEROL/FLUTICASONE 250/50 INHA INH SCH ×2 (08:41→20:37)
[2017-01-10] MEDS: ATORVASTATIN 20 MG TAB PO SCH (08:42)
[2017-01-10] MEDS: IBUPROFEN 600 MG TAB PO SCH ×2 (08:42→20:36)
[2017-01-10] MEDS: POLYETHYLENE GLYCOL 17 GM PACKET PO SCH ×2 (08:42→20:41)
[2017-01-10] MEDS: SENNA/DOCUSATE NA (8.6MG/50MG) TAB PO SCH (08:42)
[2017-01-10] MEDS: FAMOTIDINE 20 MG TAB PO SCH ×2 (08:42→20:36)
[2017-01-10 14:00] VITALS: BP 94/48; RESP 18
--- NOTE | 2017-01-10 15:06 | PN ---
Date/Time of Note Date/Time of Note DATE: 01/10/17 TIME: 15:02 Assessment/Plan VTE Prophylaxis VTE Prophylaxis Intervention: SCD's Lines/C[facility]ters [facility] Saline [facility] Urinary Cath still in place: No Assessment/Plan Chief Complaint/Hosp Course Assessment and plan 1. Symptomatic anemia. Patient with iron deficiency anemia. Continue iron supplement. Patient also status post PRBC transfusion. Monitor H&H. 2. Lytic lesion with left adrenal nodule/mass and subaortic and left perihilar lymph nodes enlargement suspect of metastatic disease. Oncologist following. s /p L2 vertebral body mass biopsy.awaiting result 3. Acute to subacute severe compression fracture of T2. Suspect pathologic. Neurosurgeon following. Follow-up with recommendations. Of note patient was planned for MRI of thoracic spine and lumbar spine for further evaluation but patient unable to complete test. continue PT 4. History of pulmonary emphysema. Patient is a chronic smoker. Continue bronchodilators as needed. Smoking cessation was advised. 5. Leukocytosis. Suspect from underlying steroids. Monitor for now. Disposition and plan: continue with physical therapy. awaiting biopsy result Discussed plan of care with Dr. Gonzalez Problems: Subjective 24 Hr Interval Summary Free Text/Dictation no reports of pain at this time. Reports good pain control at present Exam/Review of Systems Vital Signs Vitals Vital Signs Date Time Temp Pulse Resp B/P Pulse Ox O2 Delivery O2 Flow Rate FiO2 01/10/17 14:00 98.4 96 18 94/48 92 01/08/17 13:00 Room Air 01/08/17 11:59 2.0 01/06/17 15:27 21 Intake and Output 01/09/17 01/09/17 01/10/17 15:00 23:00 07:00 Intake Total 1600 ml 400 ml Balance 1600 ml 400 ml Exam Constitutional: alert, oriented Psych: no anxiety Head: normocephalic Eyes: nl conjunctiva Respiratory: clear to auscultation, normal air movement Cardiovascular: other (regular rate) Gastrointestinal: non-tender, soft Musculoskeletal: nl extremities to inspection 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: FILM SPOOLER II-XII intact, nl mental status Skin: nl turgor Results Result Diagram: 01/10/17 1230 01/10/17 1230 Results 24 hrs Laboratory Tests Test 01/10/17 12:30 White Blood Count 22.8 #H Red Blood Count 3.95 L Hemoglobin 10.7 L Hematocrit 35.4 L Mean Corpuscular Volume 89.6 Mean Corpuscular Hemoglobin 27.1 L Mean Corpuscular Hemoglobin Concent 30.2 L Red Cell Distribution Width 19.3 H Platelet Count 333 Mean Platelet Volume 9.8 Neutrophils % 88.9 H Lymphocytes % 4.2 L Monocytes % 6.2 Eosinophils % 0.0 Basophils % 0.0 Nucleated Red Blood Cells % 0.0 Neutrophils # 20.2 H Lymphocytes # 1.0 Monocytes # 1.4 H Eosinophils # 0.0 Basophils # 0.0 Nucleated Red Blood Cells # 0.0 Sodium Level 135 Potassium Level 4.2 Chloride Level 103 Carbon Dioxide Level 24 Anion Gap 12 Blood Urea Nitrogen 28 H Creatinine 0.66 Glucose Level 158 Calcium Level 9.0 Medications Medications Current Medications Ondansetron HCl (Zofran Inj) 4 mg Q6H PRN IV NAUSEA AND/OR VOMITING; Start at 21:00 Acetaminophen (Tylenol Tab) 650 mg Q6H PRN PO PAIN LEVEL 1-3 OR FEVER Last administered on 01/06/17 16:10; Admin Dose 650 MG; Start 01/01/17 at 21:00 Famotidine (Pepcid) 20 mg Q12 PO Last administered on 01/10/17 08:42; Admin Dose 20 MG; Start 01/01/17 at 21:00 Atorvastatin Calcium 40 mg 40 mg DAILY PO Last administered on 01/10/17 08:42 ; Admin Dose 40 MG; Start 01/02/17 at 09:00 Levofloxacin/ Dextrose (Levaquin 750 Mg/ D5W 150 ml (Pmx)) 150 ml @ 100 mls/hr Q24H IVPB Last administered on 01/09/17 22:19; Admin Dose 100 MLS/HR; Start 01/01/17 at 21:30 Hydromorphone HCl (Dilaudid) 2 mg Q4H PRN PO PAIN Last administered on 13:25; Admin Dose 2 MG; Start 01/03/17 at 08:00 Senna/Docusate Sodium (Senokot-S) 1 tab AM PO Last administered on 01/10/17 08:42; Admin Dose 1 TAB; Start 01/03/17 at 09:00 Ibuprofen (Motrin) 600 mg BID PO Last administered on 01/10/17 08:42; Admin Dose 600 MG; Start 01/03/17 at 11:00 Pantoprazole (Protonix Tab) 40 mg DAILY@06 PO Last administered on 01/10/17 05:31; Admin Dose 40 MG; Start 01/03/17 at 11:00 Dexamethasone (Decadron) 6 mg Q6 IV Last administered on 01/10/17 11:54; Admin Dose 6 MG; Start 01/03/17 at 12:00 Salmeterol Xinafoate/ Fluticasone (Advair 250/50 Diskus) 1 inh BID INH Last administered on 01/10/17 08:41; Admin Dose 1 INH; Start 01/06/17 at 21:00 Polyethylene Glycol (Miralax) 17 gm BID PO Last administered on 01/10/17 08: 42; Admin Dose 17 GM; Start 01/07/17 at 11:30 Bisacodyl (Dulcolax) 10 mg DAILY PRN PO CONSTIPATION Last administered on 01/08 17:16; Admin Dose 10 MG; Start 01/07/17 at 11:30 Hydromorphone HCl (Dilaudid) 2 mg Q3 PRN IV PAIN Last administered on 20:41; Admin Dose 2 MG; Start 01/09/17 at 20:30 TAMI LINDSEY Jan 10, 2017 15:06
[2017-01-10] MEDS: BISACODYL (EC) 5 MG TAB PO PRN (17:37)
[2017-01-10 20:33] VITALS: BP 124/58; RESP 19
[2017-01-10] MEDS: HYDROmorphONE 2 MG/ML SYG IV PRN (20:36)
[2017-01-10] MEDS: LEVOFLOXACIN 750MG/D5W (PMX) 150 ML IVPB SCH (20:42)
[2017-01-11] MEDS: DEXAMETHASONE 4 MG/ML 1 ML INJ IV SCH ×4 (00:33→17:40)
[2017-01-11 02:12] VITALS: BP 122/58; RESP 17
[2017-01-11] MEDS: PANTOPRAZOLE (EC) 40 MG TAB PO SCH (06:07)
[2017-01-11] MEDS: HYDROmorphONE 2 MG TAB PO PRN ×2 (07:44→14:29)
[2017-01-11] MEDS: NACL 0.9% 3 ML SYG IV SCH ×2 (07:45→17:46)
[2017-01-11 08:00] VITALS: BP 135/60; RESP 16
[2017-01-11] MEDS: POLYETHYLENE GLYCOL 17 GM PACKET PO SCH ×2 (08:38→21:00)
[2017-01-11] MEDS: SALMETEROL/FLUTICASONE 250/50 INHA INH SCH ×2 (08:38→20:59)
[2017-01-11] MEDS: BISACODYL (EC) 5 MG TAB PO PRN (08:38)
[2017-01-11] MEDS: IBUPROFEN 600 MG TAB PO SCH ×2 (08:38→21:00)
[2017-01-11] MEDS: FAMOTIDINE 20 MG TAB PO SCH ×2 (08:38→21:01)
[2017-01-11] MEDS: ATORVASTATIN 20 MG TAB PO SCH (08:38)
[2017-01-11] MEDS: SENNA/DOCUSATE NA (8.6MG/50MG) TAB PO SCH (08:38)
--- NOTE | 2017-01-11 09:20 | PN ---
Date/Time of Note Date/Time of Note DATE: 01/11/17 TIME: 09:18 Assessment/Plan VTE Prophylaxis VTE Prophylaxis Intervention: SCD's Lines/Catheters [facility] Saline Lock Urinary Cath still in place: No Assessment/Plan Chief Complaint/Hosp Course Assessment and plan 1. Symptomatic anemia. Patient with iron deficiency anemia. Continue iron supplement. Patient also status post PRBC transfusion. Monitor H&H. stable at p;resent 2. Lytic lesion with left adrenal nodule/mass and subaortic and left perihilar lymph nodes enlargement suspect of metastatic disease. Oncologist following. s /p L2 vertebral body mass biopsy.awaiting result . continue with PT 3. Acute to subacute severe compression fracture of T2. Suspect pathologic. Neurosurgeon following. Follow-up with recommendations. Of note patient was planned for MRI of thoracic spine and lumbar spine for further evaluation but patient unable to complete test. continue PT 4. History of pulmonary emphysema. Patient is a chronic smoker. Continue bronchodilators as needed. Smoking cessation was advised. no s/s of resp distress 5. Leukocytosis. Suspect from underlying steroids. Monitor for now. Disposition and plan: continue with physical therapy. continue with analgesics. Awaiting biopsy result. Follow up with oncologist erika Discussed plan of care with Dr. Gonzalez Problems: Subjective 24 Hr Interval Summary Free Text/Dictation no s/s of distress. resting at this time. Exam/Review of Systems Vital Signs Vitals Vital Signs Date Time Temp Pulse Resp B/P Pulse Ox O2 Delivery O2 Flow Rate FiO2 01/11/17 08:00 98.5 94 16 135/60 92 01/08/17 13:00 Room Air 01/08/17 11:59 2.0 Intake and Output 01/10/17 01/10/17 01/11/17 15:00 23:00 07:00 Intake Total 950 ml 400 ml Balance 950 ml 400 ml Exam Constitutional: alert, oriented Psych: no anxiety Head: normocephalic Eyes: nl conjunctiva Respiratory: no wheezing/rhonchi Cardiovascular: other (regular rate) Gastrointestinal: non-tender, soft Musculoskeletal: nl extremities to inspection 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: FERRIS WHEEL OPERATOR II-XII intact, nl mental status Skin: nl turgor Results Result Diagram: 01/11/17 0457 01/11/17 0457 Results 24 hrs Laboratory Tests Test 01/10/17 12:30 01/11/17 04:57 White Blood Count 22.8 #H 19.4 H Red Blood Count 3.95 L 3.89 L Hemoglobin 10.7 L 10.8 L Hematocrit 35.4 L 34.8 L Mean Corpuscular Volume 89.6 89.5 Mean Corpuscular Hemoglobin 27.1 L 27.8 L Mean Corpuscular Hemoglobin Concent 30.2 L 31.0 L Red Cell Distribution Width 19.3 H 19.0 H Platelet Count 333 316 Mean Platelet Volume 9.8 9.7 Neutrophils % 88.9 H 89.0 H Lymphocytes % 4.2 L 4.0 L Monocytes % 6.2 6.2 Eosinophils % 0.0 0.0 Basophils % 0.0 0.2 Nucleated Red Blood Cells % 0.0 0.0 Neutrophils # 20.2 H 17.3 H Lymphocytes # 1.0 0.8 Monocytes # 1.4 H 1.2 H Eosinophils # 0.0 0.0 Basophils # 0.0 0.0 Nucleated Red Blood Cells # 0.0 0.0 Sodium Level 135 134 L Potassium Level 4.2 4.4 Chloride Level 103 103 Carbon Dioxide Level 24 26 Anion Gap 12 9 Blood Urea Nitrogen 28 H 29 H Creatinine 0.66 0.60 Glucose Level 158 99 # Calcium Level 9.0 9.3 Medications Medications Current Medications Ondansetron HCl (Zofran Inj) 4 mg Q6H PRN IV NAUSEA AND/OR VOMITING; Start at 21:00 Acetaminophen (Tylenol Tab) 650 mg Q6H PRN PO PAIN LEVEL 1-3 OR FEVER Last administered on 01/06/17 16:10; Admin Dose 650 MG; Start 01/01/17 at 21:00 Famotidine (Pepcid) 20 mg Q12 PO Last administered on 01/11/17 08:38; Admin Dose 20 MG; Start 01/01/17 at 21:00 Atorvastatin Calcium (Lipitor) 40 mg DAILY PO Last administered on 01/11/17 08:38; Admin Dose 40 MG; Start 01/02/17 at 09:00 Hydromorphone HCl (Dilaudid) 2 mg Q4H PRN PO PAIN Last administered on 07:44; Admin Dose 2 MG; Start 01/03/17 at 08:00 Senna/Docusate Sodium (Senokot-S) 1 tab AM PO Last administered on 01/11/17 08:38; Admin Dose 1 TAB; Start 01/03/17 at 09:00 Ibuprofen (Motrin) 600 mg BID PO Last administered on 01/11/17 08:38; Admin Dose 600 MG; Start 01/03/17 at 11:00 Pantoprazole (Protonix Tab) 40 mg DAILY@06 PO Last administered on 01/11/17 06:07; Admin Dose 40 MG; Start 01/03/17 at 11:00 Dexamethasone (Decadron) 6 mg Q6 IV Last administered on 01/11/17 06:07; Admin Dose 6 MG; Start 01/03/17 at 12:00 Salmeterol Xinafoate/ Fluticasone (Advair 250/50 Diskus) 1 inh BID INH Last administered on 01/10/17 08:41; Admin Dose 1 INH; Start 01/06/17 at 21:00 Polyethylene Glycol (Miralax) 17 gm BID PO Last administered on 01/11/17 08: 38; Admin Dose 17 GM; Start 01/07/17 at 11:30 Bisacodyl (Dulcolax) 10 mg DAILY PRN PO CONSTIPATION Last administered on 01/11 08:38; Admin Dose 10 MG; Start 01/07/17 at 11:30 Hydromorphone HCl (Dilaudid) 2 mg Q3 PRN IV PAIN Last administered on 20:36; Admin Dose 2 MG; Start 01/09/17 at 20:30 TAMI LINDSEY Jan 11, 2017 09:20
[2017-01-11 14:19] VITALS: BP 127/59; RESP 18
--- NOTE | 2017-01-11 17:34 | CONS ---
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 will send for cancer type ID to narrow down the primary site of disease -given the wide spread of this disease and high possibility of underlying lung ca, will check brain MRI to rule out brain mets. pt is refusing this at this time -further treatment recommendations will depend on final pathology #T2 pathologic compression fracture -neurosurgery has been consulted -pt may benefit from kyphoplasty -will also consider radiation if symptomatic #Pneumonia -Intermediate reticulonodular pulmonary opacities suggesting bronchiolitis/bronchopneumonia. -Continue antibiotics. #Emphysema -cont bronchodialtors Problems: Consultation Date/Type/Reason Admit Date/Time Jan 01, 2017 at 18:36 Initial Consult Date 01/02/17 Type of Consultation: oncology Reason for Consultation metastatic cancer Referring Provider: ROXANN JACKSON NP 24 HR Interval Summary Free Text/Dictation pain is currently under control Exam/Review of Systems Vital Signs Vitals Vital Signs Date Time Temp Pulse Resp B/P Pulse Ox O2 Delivery O2 Flow Rate FiO2 01/11/17 14:19 98.2 87 18 127/59 93 01/08/17 13:00 Room Air 01/08/17 11:59 2.0 Intake and Output 01/10/17 01/10/17 01/11/17 15:00 23:00 07:00 Intake Total 950 ml 400 ml Balance 950 ml 400 ml Exam Constitutional: alert, oriented Psych: no complaints Head: normocephalic Eyes: nl conjunctiva ENMT: nl external ears & nose Neck: non-tender, supple Respiratory: clear to auscultation Cardiovascular: regular rate and rhythm Gastrointestinal: soft Musculoskeletal: nl extremities to inspection Results Result Diagram: 01/11/17 0457 01/11/17 0457 Results 24 hrs Laboratory Tests Test 01/11/17 04:57 White Blood Count 19.4 H Red Blood Count 3.89 L Hemoglobin 10.8 L Hematocrit 34.8 L Mean Corpuscular Volume 89.5 Mean Corpuscular Hemoglobin 27.8 L Mean Corpuscular Hemoglobin Concent 31.0 L Red Cell Distribution Width 19.0 H Platelet Count 316 Mean Platelet Volume 9.7 Neutrophils % 89.0 H Lymphocytes % 4.0 L Monocytes % 6.2 Eosinophils % 0.0 Basophils % 0.2 Nucleated Red Blood Cells % 0.0 Neutrophils # 17.3 H Lymphocytes # 0.8 Monocytes # 1.2 H Eosinophils # 0.0 Basophils # 0.0 Nucleated Red Blood Cells # 0.0 Sodium Level 134 L Potassium Level 4.4 Chloride Level 103 Carbon Dioxide Level 26 Anion Gap 9 Blood Urea Nitrogen 29 H Creatinine 0.60 Glucose Level 99 # Calcium Level 9.3 Medications Medications Current Medications Ondansetron HCl (Zofran Inj) 4 mg Q6H PRN IV NAUSEA AND/OR VOMITING; Start at 21:00 Acetaminophen (Tylenol Tab) 650 mg Q6H PRN PO PAIN LEVEL 1-3 OR FEVER Last administered on 01/06/17 16:10; Admin Dose 650 MG; Start 01/01/17 at 21:00 Famotidine (Pepcid) 20 mg Q12 PO Last administered on 01/11/17 08:38; Admin Dose 20 MG; Start 01/01/17 at 21:00 Atorvastatin Calcium (Lipitor) 40 mg DAILY PO Last administered on 01/11/17 08:38; Admin Dose 40 MG; Start 01/02/17 at 09:00 Hydromorphone HCl (Dilaudid) 2 mg Q4H PRN PO PAIN Last administered on 14:29; Admin Dose 2 MG; Start 01/03/17 at 08:00 Senna/Docusate Sodium (Senokot-S) 1 tab AM PO Last administered on 01/11/17 08:38; Admin Dose 1 TAB; Start 01/03/17 at 09:00 Ibuprofen (Motrin) 600 mg BID PO Last administered on 01/11/17 08:38; Admin Dose 600 MG; Start 01/03/17 at 11:00 Pantoprazole (Protonix Tab) 40 mg DAILY@06 PO Last administered on 01/11/17 06:07; Admin Dose 40 MG; Start 01/03/17 at 11:00 Dexamethasone (Decadron) 6 mg Q6 IV Last administered on 01/11/17 11:27; Admin Dose 6 MG; Start 01/03/17 at 12:00 Salmeterol Xinafoate/ Fluticasone (Advair 250/50 Diskus) 1 inh BID INH Last administered on 01/10/17 08:41; Admin Dose 1 INH; Start 01/06/17 at 21:00 Polyethylene Glycol (Miralax) 17 gm BID PO Last administered on 01/11/17 08: 38; Admin Dose 17 GM; Start 01/07/17 at 11:30 Bisacodyl (Dulcolax) 10 mg DAILY PRN PO CONSTIPATION Last administered on 01/11 08:38; Admin Dose 10 MG; Start 01/07/17 at 11:30 Hydromorphone HCl (Dilaudid) 2 mg Q3 PRN IV PAIN Last administered on 20:36; Admin Dose 2 MG; Start 01/09/17 at 20:30 Lactulose (Enulose) 20 gm Q6H PRN PO CONSTIPATION; Start 01/11/17 at 10:30 DARYL AGEE M.D. Jan 11, 2017 17:34
[2017-01-11] MEDS: LACTULOSE 30ML CUP PO PRN (17:40)
[2017-01-11] MEDS: HYDROmorphONE 2 MG/ML SYG IV PRN ×2 (17:46→21:02)
[2017-01-11 20:11] VITALS: BP 140/69; RESP 18
[2017-01-12] MEDS: DEXAMETHASONE 4 MG/ML 1 ML INJ IV SCH ×4 (00:58→17:22)
[2017-01-12 02:24] VITALS: BP 119/55; RESP 18
[2017-01-12] MEDS: PANTOPRAZOLE (EC) 40 MG TAB PO SCH (05:38)
[2017-01-12] MEDS: HYDROmorphONE 2 MG TAB PO PRN ×2 (07:33→15:46)
[2017-01-12 08:00] VITALS: BP 117/58; RESP 18
[2017-01-12] MEDS: FAMOTIDINE 20 MG TAB PO SCH ×2 (08:52→20:48)
[2017-01-12] MEDS: LACTULOSE 30ML CUP PO PRN (08:52)
[2017-01-12] MEDS: IBUPROFEN 600 MG TAB PO SCH ×2 (08:52→20:48)
[2017-01-12] MEDS: ATORVASTATIN 20 MG TAB PO SCH (08:52)
[2017-01-12] MEDS: SENNA/DOCUSATE NA (8.6MG/50MG) TAB PO SCH (08:53)
[2017-01-12] MEDS: POLYETHYLENE GLYCOL 17 GM PACKET PO SCH ×2 (08:53→20:48)
[2017-01-12] MEDS: SALMETEROL/FLUTICASONE 250/50 INHA INH SCH ×2 (08:53→20:48)
[2017-01-12] MEDS: NACL 0.9% 3 ML SYG IV SCH ×2 (11:29→17:23)
--- NOTE | 2017-01-12 12:24 | CONS ---
Date/Time of Note Date/Time of Note DATE: 01/12/17 TIME: 12:22 Consult Date/Type/Reason Admit Date/Time Jan 01, 2017 at 18:36 Initial Consult Date 01/02/17 Type of Consultation: Internal medicine Ordering Provider: ROXANN JACKSON ENERGY ENGINEER Subjective Patient comfortable this morning no new events. Mild back pain but no nausea vomiting. Objective Vital Signs Date Time Temp Pulse Resp B/P Pulse Ox O2 Delivery O2 Flow Rate FiO2 01/12/17 08:00 98.8 18 18 117/58 96 01/08/17 13:00 Room Air 01/08/17 11:59 2.0 Intake and Output 01/11/17 01/11/17 01/12/17 15:00 23:00 07:00 Intake Total 880 ml 360 ml Balance 880 ml 360 ml Exam GENERAL: Well nourished well-developed lady comfortable at rest VITAL SIGNS: per chart NECK: Supple. No JVD or lymphadenopathy. CARDIAC EXAM: S1, S2. No added sounds or murmurs. CHEST: clear bilaterally, No added sounds, rales or wheezes ABDOMEN: Soft, nontender. No guarding or rebound. EXTREMITIES: No cyanosis, clubbing or edema. NEUROLOGIC: Generalized weakness. No focal deficits. Results/Medications Result Diagram: 01/12/17 0537 01/12/17 0537 Results 24 hrs Laboratory Tests Test 01/12/17 05:37 White Blood Count 18.6 H Red Blood Count 4.11 L Hemoglobin 11.0 L Hematocrit 36.8 L Mean Corpuscular Volume 89.5 Mean Corpuscular Hemoglobin 26.8 L Mean Corpuscular Hemoglobin Concent 29.9 L Red Cell Distribution Width 18.8 H Platelet Count 319 Mean Platelet Volume 9.7 Neutrophils % 87.4 H Lymphocytes % 4.5 L Monocytes % 7.2 Eosinophils % 0.0 Basophils % 0.1 Nucleated Red Blood Cells % 0.0 Neutrophils # 16.3 H Lymphocytes # 0.8 Monocytes # 1.3 H Eosinophils # 0.0 Basophils # 0.0 Nucleated Red Blood Cells # 0.0 Sodium Level 135 Potassium Level 4.5 Chloride Level 101 Carbon Dioxide Level 25 Anion Gap 14 Blood Urea Nitrogen 29 H Creatinine 0.61 Glucose Level 118 Calcium Level 8.9 Medications Current Medications Ondansetron HCl (Zofran Inj) 4 mg Q6H PRN IV NAUSEA AND/OR VOMITING; Start at 21:00 Acetaminophen (Tylenol Tab) 650 mg Q6H PRN PO PAIN LEVEL 1-3 OR FEVER Last administered on 01/06/17 16:10; Admin Dose 650 MG; Start 01/01/17 at 21:00 Famotidine (Pepcid) 20 mg Q12 PO Last administered on 01/12/17 08:52; Admin Dose 20 MG; Start 01/01/17 at 21:00 Atorvastatin Calcium (Lipitor) 40 mg DAILY PO Last administered on 01/12/17 08:52; Admin Dose 40 MG; Start 01/02/17 at 09:00 Hydromorphone HCl (Dilaudid) 2 mg Q4H PRN PO PAIN Last administered on 07:33; Admin Dose 2 MG; Start 01/03/17 at 08:00 Senna/Docusate Sodium (Senokot-S) 1 tab AM PO Last administered on 01/12/17 08:53; Admin Dose 1 TAB; Start 01/03/17 at 09:00 Ibuprofen (Motrin) 600 mg BID PO Last administered on 01/12/17 08:52; Admin Dose 600 MG; Start 01/03/17 at 11:00 Pantoprazole (Protonix Tab) 40 mg DAILY@06 PO Last administered on 01/12/17 05:38; Admin Dose 40 MG; Start 01/03/17 at 11:00 Dexamethasone (Decadron) 6 mg Q6 IV Last administered on 01/12/17 11:29; Admin Dose 6 MG; Start 01/03/17 at 12:00 Salmeterol Xinafoate/ Fluticasone (Advair 250/50 Diskus) 1 inh BID INH Last administered on 01/10/17 08:41; Admin Dose 1 INH; Start 01/06/17 at 21:00 Polyethylene Glycol (Miralax) 17 gm BID PO Last administered on 01/11/17 08: 38; Admin Dose 17 GM; Start 01/07/17 at 11:30 Bisacodyl (Dulcolax) 10 mg DAILY PRN PO CONSTIPATION Last administered on 01/11 08:38; Admin Dose 10 MG; Start 01/07/17 at 11:30 Hydromorphone HCl (Dilaudid) 2 mg Q3 PRN IV PAIN Last administered on 21:02; Admin Dose 2 MG; Start 01/09/17 at 20:30 Lactulose (Enulose) 20 gm Q6H PRN PO CONSTIPATION Last administered on 08:52; Admin Dose 20 GM; Start 01/11/17 at 10:30 Assessment/Plan Chief Complaint/Hosp Course Assessment and plan 1. Symptomatic anemia. Patient with iron deficiency anemia. Continue iron supplement. Patient also status post PRBC transfusion. Monitor H&H. stable at p;resent 2. Lytic lesion with left adrenal nodule/mass and subaortic and left perihilar lymph nodes enlargement suspect of metastatic disease. Oncologist following. s /p L2 vertebral body mass biopsy. Pathology consistent with adenocarcinoma of unknown primary. 3. Acute to subacute severe compression fracture of T2. Suspect pathologic. Neurosurgeon following. Follow-up with recommendations. Of note patient was planned for MRI of thoracic spine and lumbar spine for further evaluation but patient unable to complete test. 4. History of pulmonary emphysema. Patient is a chronic smoker. Continue bronchodilators as needed. Smoking cessation was advised. no s/s of resp distress 5. Leukocytosis. Suspect from underlying steroids. Monitor for now. We will discuss with oncology. Patient may require chemo / radiation. Problems: NICKI BENOIT MD, [facility] Jan 12, 2017 12:24
[2017-01-12 14:00] VITALS: BP 119/56; RESP 20
[2017-01-12] MEDS: HYDROmorphONE 2 MG/ML SYG IV PRN (19:44)
[2017-01-12 20:00] VITALS: BP 121/58; RESP 20
[2017-01-13] MEDS: DEXAMETHASONE 4 MG/ML 1 ML INJ IV SCH ×5 (00:08→23:47)
[2017-01-13 02:00] VITALS: BP 118/59; RESP 19
[2017-01-13] MEDS: PANTOPRAZOLE (EC) 40 MG TAB PO SCH (05:50)
[2017-01-13] MEDS: HYDROmorphONE 2 MG TAB PO PRN ×3 (05:59→16:38)
[2017-01-13 08:00] VITALS: BP 126/59; RESP 20
[2017-01-13] MEDS: BISACODYL (EC) 5 MG TAB PO PRN (08:22)
[2017-01-13] MEDS: POLYETHYLENE GLYCOL 17 GM PACKET PO SCH ×2 (08:22→20:46)
[2017-01-13] MEDS: ATORVASTATIN 20 MG TAB PO SCH (08:22)
[2017-01-13] MEDS: FAMOTIDINE 20 MG TAB PO SCH ×2 (08:22→20:47)
[2017-01-13] MEDS: SALMETEROL/FLUTICASONE 250/50 INHA INH SCH ×2 (08:22→20:46)
[2017-01-13] MEDS: SENNA/DOCUSATE NA (8.6MG/50MG) TAB PO SCH (08:23)
[2017-01-13] MEDS: IBUPROFEN 600 MG TAB PO SCH ×2 (08:23→20:46)
--- NOTE | 2017-01-13 11:02 | PN ---
Date/Time of Note Date/Time of Note DATE: 01/13/17 TIME: 11:00 Assessment/Plan VTE Prophylaxis VTE Prophylaxis Intervention: SCD's Lines/Catheters IV [facility] Type [facility]from [facility] Saline Lock Urinary Cath still in place: No Assessment/Plan Chief Complaint/Hosp Course Assessment and plan 1. Symptomatic anemia. Patient with iron deficiency anemia. Continue iron supplement. Patient also status post PRBC transfusion. Monitor H&H. stable at present 2. Lytic lesion with left adrenal nodule/mass and subaortic and left perihilar lymph nodes enlargement suspect of metastatic disease. Oncologist following. s /p L2 vertebral body mass biopsy. findings showing: MICROSCOPIC DIAGNOSIS: L2 vertebral body mass, CT-guided core needle biopsies: -- Metastatic adenocarcinoma Awaiting cancer type ID result. Follow-up with oncologist recommendations. 3. Acute to subacute severe compression fracture of T2. Suspect pathologic. Neurosurgeon following. Follow-up with recommendations. Of note patient was planned for MRI of thoracic spine and lumbar spine for further evaluation but patient unable to complete test. continue PT 4. History of pulmonary emphysema. Patient is a chronic smoker. Continue bronchodilators as needed. Smoking cessation was advised. no s/s of resp distress 5. Leukocytosis. Suspect from underlying steroids. Monitor for now. Disposition and plan: continue with physical therapy. Continue with analgesics. Pain management physician following. Follow-up with recommendations. Follow-up on cancer type ID result Discussed plan of care with Dr. Gonzalez Problems: Subjective 24 Hr Interval Summary Free Text/Dictation Still reports having some back pain. Little worse today. Exam/Review of Systems Vital Signs Vitals Vital Signs Date Time Temp Pulse Resp B/P Pulse Ox O2 Delivery O2 Flow Rate FiO2 01/13/17 08:00 97.8 85 20 126/59 97 01/13/17 04:06 2.0 Intake and Output 01/12/17 01/12/17 01/13/17 15:00 23:00 07:00 Intake Total 720 ml Output Total 400 ml Balance 320 ml Exam Constitutional: alert, oriented Psych: anxious today Head: normocephalic Eyes: nl conjunctiva Respiratory: no wheezing/rhonchi Cardiovascular: other (regular rate) Gastrointestinal: non-tender, soft Musculoskeletal: nl extremities to inspection 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: [employer] II-XII intact, nl mental status Skin: nl turgor Results Result Diagram: 01/13/17 0503 01/13/17 0503 Results 24 hrs Laboratory Tests Test 01/13/17 05:03 White Blood Count 17.5 H Red Blood Count 4.06 L Hemoglobin 11.0 L Hematocrit 36.3 L Mean Corpuscular Volume 89.4 Mean Corpuscular Hemoglobin 27.1 L Mean Corpuscular Hemoglobin Concent 30.3 L Red Cell Distribution Width 18.5 H Platelet Count 311 Mean Platelet Volume 9.7 Neutrophils % 88.1 H Lymphocytes % 3.9 L Monocytes % 7.1 Eosinophils % 0.0 Basophils % 0.1 Nucleated Red Blood Cells % 0.0 Neutrophils # 15.4 H Lymphocytes # 0.7 L Monocytes # 1.3 H Eosinophils # 0.0 Basophils # 0.0 Nucleated Red Blood Cells # 0.0 Sodium Level 134 L Potassium Level 4.1 Chloride Level 100 Carbon Dioxide Level 27 Anion Gap 11 Blood Urea Nitrogen 26 H Creatinine 0.57 Glucose Level 118 Calcium Level 8.8 Medications Medications Current Medications Ondansetron HCl (Zofran Inj) 4 mg Q6H PRN IV NAUSEA AND/OR VOMITING; Start at 21:00 Acetaminophen (Tylenol Tab) 650 mg Q6H PRN PO PAIN LEVEL 1-3 OR FEVER Last administered on 01/06/17 16:10; Admin Dose 650 MG; Start 01/01/17 at 21:00 Famotidine (Pepcid) 20 mg Q12 PO Last administered on 01/13/17 08:22; Admin Dose 20 MG; Start 01/01/17 at 21:00 Atorvastatin Calcium (Lipitor) 40 mg DAILY PO Last administered on 01/13/17 08:22; Admin Dose 40 MG; Start 01/02/17 at 09:00 Hydromorphone HCl (Dilaudid) 2 mg Q4H PRN PO PAIN Last administered on 05:59; Admin Dose 2 MG; Start 01/03/17 at 08:00 Senna/Docusate Sodium (Senokot-S) 1 tab AM PO Last administered on 01/13/17 08:23; Admin Dose 1 TAB; Start 01/03/17 at 09:00 Ibuprofen (Motrin) 600 mg BID PO Last administered on 01/13/17 08:23; Admin Dose 600 MG; Start 01/03/17 at 11:00 Pantoprazole (Protonix Tab) 40 mg DAILY@06 PO Last administered on 01/13/17 05:50; Admin Dose 40 MG; Start 01/03/17 at 11:00 Dexamethasone (Decadron) 6 mg Q6 IV Last administered on 01/13/17 05:50; Admin Dose 6 MG; Start 01/03/17 at 12:00 Salmeterol Xinafoate/ Fluticasone (Advair 250/50 Diskus) 1 inh BID INH Last administered on 01/13/17 08:22; Admin Dose 1 INH; Start 01/06/17 at 21:00 Polyethylene Glycol (Miralax) 17 gm BID PO Last administered on 01/13/17 08: 22; Admin Dose 17 GM; Start 01/07/17 at 11:30 Bisacodyl (Dulcolax) 10 mg DAILY PRN PO CONSTIPATION Last administered on 01/13 08:22; Admin Dose 10 MG; Start 01/07/17 at 11:30 Hydromorphone HCl (Dilaudid) 2 mg Q3 PRN IV PAIN Last administered on 19:44; Admin Dose 2 MG; Start 01/09/17 at 20:30 Lactulose (Enulose) 20 gm Q6H PRN PO CONSTIPATION Last administered on 08:52; Admin Dose 20 GM; Start 01/11/17 at 10:30 TAMI LINDSEY Jan 13, 2017 11:02
[2017-01-13 14:00] VITALS: BP 132/64; RESP 18
[2017-01-13 20:00] VITALS: BP 119/61; RESP 20
[2017-01-13] MEDS: HYDROmorphONE 0.5 MG/0.5 ML SYG IV PRN ×2 (20:56→23:56)
[2017-01-14 02:00] VITALS: BP 126/66; RESP 20
[2017-01-14] MEDS: HYDROmorphONE 0.5 MG/0.5 ML SYG IV PRN ×5 (04:30→20:43)
[2017-01-14] MEDS: DEXAMETHASONE 4 MG/ML 1 ML INJ IV SCH ×3 (05:31→17:43)
[2017-01-14] MEDS: PANTOPRAZOLE (EC) 40 MG TAB PO SCH (05:31)
[2017-01-14] MEDS: LACTULOSE 30ML CUP PO PRN (05:45)
[2017-01-14 08:00] VITALS: BP 134/73; RESP 18
[2017-01-14] MEDS: IBUPROFEN 600 MG TAB PO SCH ×2 (08:08→20:15)
[2017-01-14] MEDS: ATORVASTATIN 20 MG TAB PO SCH (08:08)
[2017-01-14] MEDS: SENNA/DOCUSATE NA (8.6MG/50MG) TAB PO SCH (08:08)
[2017-01-14] MEDS: FAMOTIDINE 20 MG TAB PO SCH ×2 (08:08→20:15)
[2017-01-14] MEDS: NACL 0.9% 3 ML SYG IV SCH ×4 (08:09→17:45)
[2017-01-14] MEDS: SALMETEROL/FLUTICASONE 250/50 INHA INH SCH ×2 (08:09→20:14)
[2017-01-14] MEDS: POLYETHYLENE GLYCOL 17 GM PACKET PO SCH ×2 (08:09→20:16)
--- NOTE | 2017-01-14 13:46 | PN ---
Date/Time of Note Date/Time of Note DATE: 01/14/17 TIME: 13:45 Assessment/Plan VTE Prophylaxis VTE Prophylaxis Intervention: SCD's Lines/Catheters [facility] Type (from [facility] Saline Lock Urinary Cath still in place: No Assessment/Plan Chief Complaint/Hosp Course Assessment and plan 1. Symptomatic anemia. Patient with iron deficiency anemia. Continue iron supplement. Patient also status post PRBC transfusion. Monitor H&H. stable at present 2. Lytic lesion with left adrenal nodule/mass and subaortic and left perihilar lymph nodes enlargement suspect of metastatic disease. Oncologist following. s /p L2 vertebral body mass biopsy. findings showing: MICROSCOPIC DIAGNOSIS: L2 vertebral body mass, CT-guided core needle biopsies: -- Metastatic adenocarcinoma Awaiting cancer type ID result. Follow-up with oncologist recommendations. 3. Acute to subacute severe compression fracture of T2. Suspect pathologic. Neurosurgeon following. Follow-up with recommendations. Of note patient was planned for MRI of thoracic spine and lumbar spine for further evaluation but patient unable to complete test. continue PT 4. History of pulmonary emphysema. Patient is a chronic smoker. Continue bronchodilators as needed. Smoking cessation was advised. no s/s of resp distress 5. Leukocytosis. Suspect from underlying steroids. Monitor for now. Disposition and plan: continue with physical therapy. Continue with analgesics. follow up with oncologist erika. Discussed plan of care with Dr. Gonzalez Problems: Subjective 24 Hr Interval Summary Free Text/Dictation no s/s of distress. 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 [employer]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 II-XII intact, nl mental status Skin: nl turgor Results Result Diagram: 01/13/17 0503 01/13/17 0503 Medications Medications Current Medications Ondansetron HCl (Zofran Inj) 4 mg Q6H PRN IV NAUSEA AND/OR VOMITING; Start at 21:00 Acetaminophen (Tylenol Tab) 650 mg Q6H PRN PO PAIN LEVEL 1-3 OR FEVER Last administered on 01/06/17 16:10; Admin Dose 650 MG; Start 01/01/17 at 21:00 Famotidine (Pepcid) 20 mg Q12 PO Last administered on 01/14/17 08:08; Admin Dose 20 MG; Start 01/01/17 at 21:00 Atorvastatin Calcium (Lipitor) 40 mg DAILY PO Last administered on 01/14/17 08:08; Admin Dose 40 MG; Start 01/02/17 at 09:00 Hydromorphone HCl (Dilaudid) 2 mg Q4H PRN PO PAIN Last administered on 16:38; Admin Dose 2 MG; Start 01/03/17 at 08:00 Senna/Docusate Sodium (Senokot-S) 1 tab AM PO Last administered on 01/14/17 08:08; Admin Dose 1 TAB; Start 01/03/17 at 09:00 Ibuprofen (Motrin) 600 mg BID PO Last administered on 01/14/17 08:08; Admin Dose 600 MG; Start 01/03/17 at 11:00 Pantoprazole (Protonix Tab) 40 mg DAILY@06 PO Last administered on 01/14/17 05:31; Admin Dose 40 MG; Start 01/03/17 at 11:00 Dexamethasone (Decadron) 6 mg Q6 IV Last administered on 01/14/17 11:29; Admin Dose 6 MG; Start 01/03/17 at 12:00 Salmeterol Xinafoate/ Fluticasone (Advair 250/50 Diskus) 1 inh BID INH Last administered on 01/13/17 20:46; Admin Dose 1 INH; Start 01/06/17 at 21:00 Polyethylene Glycol (Miralax) 17 gm BID PO Last administered on 01/13/17 20: 46; Admin Dose 17 GM; Start 01/07/17 at 11:30 Bisacodyl (Dulcolax) 10 mg DAILY PRN PO CONSTIPATION Last administered on 01/13 08:22; Admin Dose 10 MG; Start 01/07/17 at 11:30 Lactulose (Enulose) 20 gm Q6H PRN PO CONSTIPATION Last administered on 05:45; Admin Dose 20 GM; Start 01/11/17 at 10:30 Hydromorphone HCl (Dilaudid) 1 mg Q3H PRN IV PAIN Last administered on 13:40; Admin Dose 1 MG; Start 01/13/17 at 21:00 TAMI LINDSEY Jan 14, 2017 13:46
[2017-01-14 14:00] VITALS: BP 118/58; RESP 18
[2017-01-14 21:17] VITALS: BP 125/67; RESP 20
[2017-01-15] MEDS: DEXAMETHASONE 4 MG/ML 1 ML INJ IV SCH ×4 (00:29→17:57)
[2017-01-15] MEDS: HYDROmorphONE 0.5 MG/0.5 ML SYG IV PRN ×7 (00:29→20:49)
[2017-01-15 03:29] VITALS: BP 133/61; RESP 18
[2017-01-15] MEDS: PANTOPRAZOLE (EC) 40 MG TAB PO SCH (05:59)
[2017-01-15 07:28] VITALS: BP 127/55; RESP 20
[2017-01-15] MEDS: NACL 0.9% 3 ML SYG IV SCH ×2 (07:29→14:52)
[2017-01-15] MEDS: SALMETEROL/FLUTICASONE 250/50 INHA INH SCH ×2 (08:28→19:59)
[2017-01-15] MEDS: POLYETHYLENE GLYCOL 17 GM PACKET PO SCH ×2 (08:29→19:59)
[2017-01-15] MEDS: FAMOTIDINE 20 MG TAB PO SCH ×2 (08:29→20:12)
[2017-01-15] MEDS: SENNA/DOCUSATE NA (8.6MG/50MG) TAB PO SCH (08:29)
[2017-01-15] MEDS: ATORVASTATIN 20 MG TAB PO SCH (08:29)
[2017-01-15] MEDS: IBUPROFEN 600 MG TAB PO SCH ×2 (08:29→20:00)
[2017-01-15 15:13] VITALS: BP 124/60; RESP 20
--- NOTE | 2017-01-15 15:26 | PN ---
Date/Time of Note Date/Time of Note DATE: 01/15/17 TIME: 15:21 Assessment/Plan VTE Prophylaxis VTE Prophylaxis Intervention: SCD's Lines/Catheters IV Catheter Type (from [facility]): Saline Lock Urinary Cath still in place: No Assessment/Plan Chief Complaint/Hosp Course 1. Symptomatic anemia. Etiology might be multifactorial including underlying iron deficiency and underlying malignancy. 2. Metastatic adenocarcinoma with nonspecific immune no histochemical staining pattern. Pending cancer type ID molecular studies. Treatment strategy to be finalized after identifying the primary. 3. Intermediate reticulonodular pulmonary opacities suggesting bronchiolitis/ bronchopneumonia. Status post antibiotics. 4. Pulmonary emphysema. The patient is a chronic smoker. Continue as needed inhaled bronchodilators. Continue maintenance inhalers. 5. Acute to subacute severe compression fracture of T2. Possibly pathological fracture. The patient will be provided with adequate pain control. Neurosurgical consult was obtained. The patient was unable to complete the MRI imaging of the thoracic and lumbar spine as requested by neurosurgery. 6. Leukocytosis. Etiology could be from underlying steroids. Remains afebrile. Monitor. 7. Debility. The patient being followed by physical therapy. 8. Fluids, electrolytes, and nutrition. Regular diet. 9. DVT prophylaxis. Bilateral sequential compression devices. 10. Plan. The patient is not a safe discharge home because the patient lives with her roommates and her roommates are unable to assist the patient. Therefore, we will transfer the patient to a retirement facility versus acute rehabilitation unit for further rehabilitation. Case discussed with Dr. Bobby. Problems: Subjective 24 Hr Interval Summary Free Text/Dictation Right thigh pain well controlled. Exam/Review of Systems Vital Signs Vitals Vital Signs Date Time Temp Pulse Resp B/P Pulse Ox O2 Delivery O2 Flow Rate FiO2 01/15/17 10:27 Nasal Cannula 01/15/17 07:28 98.5 93 20 127/55 91 01/14/17 20:15 2.0 Intake and Output 01/14/17 01/14/17 01/15/17 15:00 23:00 07:00 Intake Total 900 ml 480 ml Balance 900 ml 480 ml Exam General: Adequately build 66 year-old female lying in bed in no apparent distress. HEENT: Normocephalic, atraumatic. Eyes: Anicteric sclerae, conjunctivae clear. ENT: Nasal septum midline, oral mucosa moist. Neck supple, no JVD noticed. Respiratory: Bilaterally diminished breath sounds. No use of accessory muscles of respiration. Cardiovascular: S1, S2 heard. No murmurs or gallops. Abdomen: Soft, nontender, and nondistended. Bowel sounds positive in all 4 quadrants. Genitourinary: Deferred. Extremities: No cyanosis, no clubbing, no edema. Peripheral pulses palpable. Neurologic: Cranial nerves II through XII grossly intact. The patient is awake, alert, and oriented. Skin: Normal skin turgor. No skin rashes. Results Result Diagram: 01/13/17 0503 01/13/17 0503 Medications Medications Current Medications Ondansetron HCl (Zofran Inj) 4 mg Q6H PRN IV NAUSEA AND/OR VOMITING; Start at 21:00 Acetaminophen (Tylenol Tab) 650 mg Q6H PRN PO PAIN LEVEL 1-3 OR FEVER Last administered on 01/06/17 16:10; Admin Dose 650 MG; Start 01/01/17 at 21:00 Famotidine (Pepcid) 20 mg Q12 PO Last administered on 01/15/17 08:29; Admin Dose 20 MG; Start 01/01/17 at 21:00 Atorvastatin Calcium (Lipitor) 40 mg DAILY PO Last administered on 01/15/17 08:29; Admin Dose 40 MG; Start 01/02/17 at 09:00 Hydromorphone HCl (Dilaudid) 2 mg Q4H PRN PO PAIN Last administered on 16:38; Admin Dose 2 MG; Start 01/03/17 at 08:00 Senna/Docusate Sodium (Senokot-S) 1 tab AM PO Last administered on 01/15/17 08:29; Admin Dose 1 TAB; Start 01/03/17 at 09:00 Ibuprofen (Motrin) 600 mg BID PO Last administered on 01/15/17 08:29; Admin Dose 600 MG; Start 01/03/17 at 11:00 Pantoprazole (Protonix Tab) 40 mg DAILY@06 PO Last administered on 01/15/17 05:59; Admin Dose 40 MG; Start 01/03/17 at 11:00 Dexamethasone (Decadron) 6 mg Q6 IV Last administered on 01/15/17 11:25; Admin Dose 6 MG; Start 01/03/17 at 12:00 Salmeterol Xinafoate/ Fluticasone (Advair 250/50 Diskus) 1 inh BID INH Last administered on 01/15/17 08:28; Admin Dose 1 INH; Start 01/06/17 at 21:00 Polyethylene Glycol (Miralax) 17 gm BID PO Last administered on 01/13/17 20: 46; Admin Dose 17 GM; Start 01/07/17 at 11:30 Bisacodyl (Dulcolax) 10 mg DAILY PRN PO CONSTIPATION Last administered on 01/13 08:22; Admin Dose 10 MG; Start 01/07/17 at 11:30 Lactulose (Enulose) 20 gm Q6H PRN PO CONSTIPATION Last administered on 05:45; Admin Dose 20 GM; Start 01/11/17 at 10:30 Hydromorphone HCl (Dilaudid) 1 mg Q3H PRN IV PAIN Last administered on 14:51; Admin Dose 1 MG; Start 01/13/17 at 21:00 ROXANN JACKSON NP Jan 15, 2017 15:26
[2017-01-15 20:36] VITALS: BP 136/60; RESP 20
[2017-01-16] MEDS: HYDROmorphONE 0.5 MG/0.5 ML SYG IV PRN ×7 (00:02→22:12)
[2017-01-16 02:41] VITALS: BP 114/58; RESP 18
[2017-01-16] MEDS: DEXAMETHASONE 4 MG/ML 1 ML INJ IV SCH ×4 (05:31→17:02)
[2017-01-16] MEDS: PANTOPRAZOLE (EC) 40 MG TAB PO SCH (05:31)
[2017-01-16 07:55] VITALS: BP 122/67; RESP 18
[2017-01-16] MEDS: SALMETEROL/FLUTICASONE 250/50 INHA INH SCH ×2 (08:46→20:42)
[2017-01-16] MEDS: IBUPROFEN 600 MG TAB PO SCH ×2 (08:47→20:42)
[2017-01-16] MEDS: FAMOTIDINE 20 MG TAB PO SCH ×2 (08:47→20:42)
[2017-01-16] MEDS: POLYETHYLENE GLYCOL 17 GM PACKET PO SCH ×2 (08:47→20:42)
[2017-01-16] MEDS: SENNA/DOCUSATE NA (8.6MG/50MG) TAB PO SCH (08:47)
[2017-01-16] MEDS: ATORVASTATIN 20 MG TAB PO SCH (08:47)
--- NOTE | 2017-01-16 11:06 | PN ---
Date/Time of Note Date/Time of Note DATE: 01/16/17 TIME: 11:04 Assessment/Plan VTE Prophylaxis VTE Prophylaxis Intervention: SCD's Lines/Catheters IV Catheter Type (from [facility]): Saline Lock Urinary Cath still in place: No Assessment/Plan Chief Complaint/Hosp Course 1. Symptomatic anemia. Etiology might be multifactorial including underlying iron deficiency and underlying malignancy. 2. Metastatic adenocarcinoma with nonspecific immune no histochemical staining pattern. Pending cancer type ID molecular studies. Treatment strategy to be finalized after identifying the primary. 3. Intermediate reticulonodular pulmonary opacities suggesting bronchiolitis/ bronchopneumonia. Status post antibiotics. 4. Pulmonary emphysema. The patient is a chronic smoker. Continue as needed inhaled bronchodilators. Continue maintenance inhalers. 5. Acute to subacute severe compression fracture of T2. Possibly pathological fracture. The patient will be provided with adequate pain control. Neurosurgical consult was obtained. The patient was unable to complete the MRI imaging of the thoracic and lumbar spine as requested by neurosurgery. No surgical intervention as of now. Continue pain medications. 6. Leukocytosis. Etiology could be from underlying steroids. Remains afebrile. Monitor. 7. Debility. The patient being followed by physical therapy. 8. Fluids, electrolytes, and nutrition. Regular diet. 9. DVT prophylaxis. Bilateral sequential compression devices. 10. Plan. The patient is not a safe discharge home because the patient lives with her roommates and her roommates are unable to assist the patient. Therefore, we will transfer the patient to a nursing home facility versus acute rehabilitation unit for further rehabilitation. Case discussed with Dr. Bobby. Problems: Subjective 24 Hr Interval Summary Free Text/Dictation Right lower extremity pain well controlled. Exam/Review of Systems Vital Signs Vitals Vital Signs Date Time Temp Pulse Resp B/P Pulse Ox O2 Delivery O2 Flow Rate FiO2 01/16/17 07:55 98.2 80 18 122/67 92 01/15/17 20:00 Nasal Cannula 2.0 Intake and Output 01/15/17 01/15/17 01/16/17 15:00 23:00 07:00 Intake Total 800 ml 480 ml Output Total 800 ml Balance 0 ml 480 ml Exam General: Adequately build 66 year-old female lying in bed in no apparent distress. HEENT: Normocephalic, atraumatic. Eyes: Anicteric sclerae, conjunctivae clear. ENT: Nasal septum midline, oral mucosa moist. Neck supple, no JVD noticed. Respiratory: Bilaterally diminished breath sounds. No use of accessory muscles of respiration. Cardiovascular: S1, S2 heard. No murmurs or gallops. Abdomen: Soft, nontender, and nondistended. Bowel sounds positive in all 4 quadrants. Genitourinary: Deferred. Extremities: No cyanosis, no clubbing, no edema. Peripheral pulses palpable. Neurologic: Cranial nerves II through XII grossly intact. The patient is awake, alert, and oriented. Skin: Normal skin turgor. No skin rashes. Results Result Diagram: 01/16/1752301/16/17523 Results 24 hrs Laboratory Tests Test 01/16/17 05:24 White Blood Count 26.4 #H Red Blood Count 4.10 L Hemoglobin 11.6 L Hematocrit 37.2 Mean Corpuscular Volume 90.7 Mean Corpuscular Hemoglobin 28.3 L Mean Corpuscular Hemoglobin Concent 31.2 L Red Cell Distribution Width 18.7 H Platelet Count 305 Mean Platelet Volume 9.7 Neutrophils % Segmented Neutrophils % (Manual) 88 H Band Neutrophils % (Manual) 1 Lymphocytes % Lymphocytes % (Manual) 9 L Monocytes % Monocytes % (Manual) 2 Eosinophils % Basophils % Nucleated Red Blood Cells % 0.0 Neutrophils # Neutrophils # (Manual) 23.3 H Band Neutrophils # 0.2 Absolute Lymphocytes (Manual) 2.3 Lymphocytes # Monocytes # Absolute Monocytes (Manual) 0.5 Eosinophils # Basophils # Nucleated Red Blood Cells # Platelet Estimate NORMAL Polychromasia 3+ Anisocytosis 1+ Microcytosis 1+ Sodium Level 136 Potassium Level 4.4 Chloride Level 101 Carbon Dioxide Level 30 Anion Gap 9 Blood Urea Nitrogen 29 H Creatinine 0.53 Glucose Level 101 Calcium Level 9.3 Phosphorus Level 4.1 Magnesium Level 2.0 Total Bilirubin 0.4 Direct Bilirubin 0.00 Indirect Bilirubin 0.4 Aspartate Amino Transf (AST/SGOT) 31 Alanine Aminotransferase (ALT/SGPT) 33 Alkaline Phosphatase 130 H Total Protein 5.9 L Albumin 2.9 L Globulin 3.00 Albumin/Globulin Ratio 0.96 Medications Medications Current Medications Ondansetron HCl (Zofran Inj) 4 mg Q6H PRN IV NAUSEA AND/OR VOMITING; Start at 21:00 Acetaminophen (Tylenol Tab) 650 mg Q6H PRN PO PAIN LEVEL 1-3 OR FEVER Last administered on 01/06/17 16:10; Admin Dose 650 MG; Start 01/01/17 at 21:00 Famotidine (Pepcid) 20 mg Q12 PO Last administered on 01/16/17 08:47; Admin Dose 20 MG; Start 01/01/17 at 21:00 Atorvastatin Calcium (Lipitor) 40 mg DAILY PO Last administered on 01/16/17 08:47; Admin Dose 40 MG; Start 01/02/17 at 09:00 Hydromorphone HCl (Dilaudid) 2 mg Q4H PRN PO PAIN Last administered on 16:38; Admin Dose 2 MG; Start 01/03/17 at 08:00 Senna/Docusate Sodium (Senokot-S) 1 tab AM PO Last administered on 01/16/17 08:47; Admin Dose 1 TAB; Start 01/03/17 at 09:00 Ibuprofen (Motrin) 600 mg BID PO Last administered on 01/16/17 08:47; Admin Dose 600 MG; Start 01/03/17 at 11:00 Pantoprazole (Protonix Tab) 40 mg DAILY@06 PO Last administered on 01/16/17 05:31; Admin Dose 40 MG; Start 01/03/17 at 11:00 Dexamethasone (Decadron) 6 mg Q6 IV Last administered on 01/16/17 05:31; Admin Dose 6 MG; Start 01/03/17 at 12:00 Salmeterol Xinafoate/ Fluticasone (Advair 250/50 Diskus) 1 inh BID INH Last administered on 01/16/17 08:46; Admin Dose 1 INH; Start 01/06/17 at 21:00 Polyethylene Glycol (Miralax) 17 gm BID PO Last administered on 01/16/17 08: 47; Admin Dose 17 GM; Start 01/07/17 at 11:30 Bisacodyl (Dulcolax) 10 mg DAILY PRN PO CONSTIPATION Last administered on 01/13 08:22; Admin Dose 10 MG; Start 01/07/17 at 11:30 Lactulose (Enulose) 20 gm Q6H PRN PO CONSTIPATION Last administered on 05:45; Admin Dose 20 GM; Start 01/11/17 at 10:30 Hydromorphone HCl (Dilaudid) 1 mg Q3H PRN IV PAIN Last administered on t 08:46; Admin Dose 1 MG; Start 01/13/17 at 21:00 ROXANN JACKSON NP Jan 16, 2017 11:06
[2017-01-16 14:26] VITALS: BP 106/54; RESP 16
[2017-01-16 20:00] VITALS: BP 114/54; RESP 19
[2017-01-17] MEDS: DEXAMETHASONE 4 MG/ML 1 ML INJ IV SCH ×5 (00:07→23:28)
[2017-01-17 02:00] VITALS: BP 112/53; RESP 19
[2017-01-17] MEDS: HYDROmorphONE 0.5 MG/0.5 ML SYG IV PRN ×7 (02:50→23:28)
[2017-01-17] MEDS: PANTOPRAZOLE (EC) 40 MG TAB PO SCH (05:24)
[2017-01-17 08:21] VITALS: BP 119/58; RESP 18
[2017-01-17] MEDS: SALMETEROL/FLUTICASONE 250/50 INHA INH SCH ×2 (08:23→20:08)
[2017-01-17] MEDS: ATORVASTATIN 20 MG TAB PO SCH (08:24)
[2017-01-17] MEDS: SENNA/DOCUSATE NA (8.6MG/50MG) TAB PO SCH (08:24)
[2017-01-17] MEDS: POLYETHYLENE GLYCOL 17 GM PACKET PO SCH ×2 (08:24→20:07)
[2017-01-17] MEDS: IBUPROFEN 600 MG TAB PO SCH ×2 (08:25→20:08)
[2017-01-17] MEDS: FAMOTIDINE 20 MG TAB PO SCH ×2 (08:25→20:08)
--- NOTE | 2017-01-17 09:36 | PN ---
Date/Time of Note Date/Time of Note DATE: 01/17/17 TIME: 09:35 Assessment/Plan VTE Prophylaxis VTE Prophylaxis Intervention: SCD's Lines/Catheters IV Catheter Type (from [facility]): [facility] Urinary Cath still in place: No Assessment/Plan Chief Complaint/Hosp Course 1. Symptomatic anemia. Largely resolved. Etiology might be multifactorial including underlying iron deficiency and underlying malignancy. 2. Metastatic adenocarcinoma with nonspecific immune no histochemical staining pattern. Pending cancer type ID molecular studies. Treatment strategy to be finalized after identifying the primary. 3. Intermediate reticulonodular pulmonary opacities suggesting bronchiolitis/ bronchopneumonia. Status post antibiotics. 4. Pulmonary emphysema. COPD. The patient is a chronic smoker. Continue as needed inhaled bronchodilators. Continue maintenance inhalers. 5. Acute to subacute severe compression fracture of T2. Possibly pathological fracture. The patient will be provided with adequate pain control. Neurosurgical consult was obtained. The patient was unable to complete the MRI imaging of the thoracic and lumbar spine as requested by neurosurgery. No surgical intervention as of now. Continue pain medications. 6. Leukocytosis. Etiology could be from underlying steroids. Remains afebrile. Monitor. 7. Debility. The patient being followed by physical therapy. 8. Fluids, electrolytes, and nutrition. Regular diet. 9. DVT prophylaxis. Bilateral sequential compression devices. 10. Plan. The patient is not a safe discharge home because the patient lives with her roommates and her roommates are unable to assist the patient. Therefore, we will transfer the patient to a residential facility versus acute rehabilitation unit for further rehabilitation. Case discussed with Dr. Bobby. Problems: Subjective 24 Hr Interval Summary Free Text/Dictation Right lower extremity pain well controlled. Exam/Review of Systems Vital Signs Vitals Vital Signs Date Time Temp Pulse Resp B/P Pulse Ox O2 Delivery O2 Flow Rate FiO2 01/17/17 08:21 98.5 83 18 119/58 92 01/16/17 20:30 Nasal Cannula 2.0 Intake and Output 01/16/17 01/16/17 01/17/17 15:00 23:00 07:00 Intake Total 920 ml 880 ml Output Total 500 ml Balance 920 ml 380 ml Exam General: Adequately build 66 year-old female lying in bed in no apparent distress. HEENT: Normocephalic, atraumatic. Eyes: Anicteric sclerae, conjunctivae clear. ENT: Nasal septum midline, oral mucosa moist. Neck supple, no JVD noticed. Respiratory: Bilaterally diminished breath sounds. No use of accessory muscles of respiration. Cardiovascular: S1, S2 heard. No murmurs or gallops. Abdomen: Soft, nontender, and nondistended. Bowel sounds positive in all 4 quadrants. Genitourinary: Deferred. Extremities: No cyanosis, no clubbing, no edema. Peripheral pulses palpable. Neurologic: Cranial nerves II through XII grossly intact. The patient is awake, alert, and oriented. Skin: Normal skin turgor. No skin rashes. Results Result Diagram: 01/16/1752301/16/17523 Medications Medications Current Medications Ondansetron HCl (Zofran Inj) 4 mg Q6H PRN IV NAUSEA AND/OR VOMITING; Start at 21:00 Acetaminophen (Tylenol Tab) 650 mg Q6H PRN PO PAIN LEVEL 1-3 OR FEVER Last administered on 01/06/17 16:10; Admin Dose 650 MG; Start 01/01/17 at 21:00 Famotidine (Pepcid) 20 mg Q12 PO Last administered on 01/17/17 08:25; Admin Dose 20 MG; Start 01/01/17 at 21:00 Atorvastatin Calcium (Lipitor) 40 mg DAILY PO Last administered on 01/17/17 08 :24; Admin Dose 40 MG; Start 01/02/17 at 09:00 Hydromorphone HCl (Dilaudid) 2 mg Q4H PRN PO PAIN Last administered on 16:38; Admin Dose 2 MG; Start 01/03/17 at 08:00 Senna/Docusate Sodium (Senokot-S) 1 tab AM PO Last administered on 01/17/17 08 :24; Admin Dose 1 TAB; Start 01/03/17 at 09:00 Ibuprofen (Motrin) 600 mg BID PO Last administered on 01/17/17 08:25; Admin Dose 600 MG; Start 01/03/17 at 11:00 Pantoprazole (Protonix Tab) 40 mg DAILY@06 PO Last administered on 01/17/17 05 :24; Admin Dose 40 MG; Start 01/03/17 at 11:00 Dexamethasone (Decadron) 6 mg Q6 IV Last administered on 01/17/17 05:24; Admin Dose 6 MG; Start 01/03/17 at 12:00 Salmeterol Xinafoate/ Fluticasone (Advair 250/50 Diskus) 1 inh BID INH Last administered on 01/17/17 08:23; Admin Dose 1 INH; Start 01/06/17 at 21:00 Polyethylene Glycol (Miralax) 17 gm BID PO Last administered on 01/17/17 08:24 ; Admin Dose 17 GM; Start 01/07/17 at 11:30 Bisacodyl (Dulcolax) 10 mg DAILY PRN PO CONSTIPATION Last administered on 01/13 08:22; Admin Dose 10 MG; Start 01/07/17 at 11:30 Lactulose (Enulose) 20 gm Q6H PRN PO CONSTIPATION Last administered on 05:45; Admin Dose 20 GM; Start 01/11/17 at 10:30 Hydromorphone HCl (Dilaudid) 1 mg Q3H PRN IV PAIN Last administered on 06:20; Admin Dose 1 MG; Start 01/13/17 at 21:00 ROXANN JACKSON NP Jan 17, 2017 09:36
[2017-01-17 14:54] VITALS: BP 124/59; RESP 20
[2017-01-17 19:55] VITALS: BP 107/54; RESP 20
--- NOTE | 2017-01-18 08:00 | DS ---
Date/Time of Note Date/Time of Note DATE: 01/18/17 TIME: 08:00 Discharge Summary Admission/Discharge Info Admit Date/Time Jan 01, 2017 at 18:36 Discharge Date/Time Jan 18, 2017 at 00:15 Discharge Diagnosis 1. Metastatic adenocarcinoma with nonspecific immunohistochemical staining pattern. Pending cancer type ID molecular studies. 2. Symptomatic anemia. Normocytic and hypochromic. 3. Iron deficiency (improved with therapy). 4. Intermediate reticulonodular pulmonary opacities suggesting bronchiolitis/ bronchopneumonia. Status post antibiotics. 5. Pulmonary emphysema with chronic bronchitis. COPD. 6. Pulmonary hypertension. 7. Acute to subacute severe compression fracture of T2. Possibly pathological fracture. 8. Leukocytosis. 9. Low back pain and right lower extremity radiating pain. 10. Debility. 11. Dyslipidemia. 12. Nicotine use. Patient Condition: Stable Consults 1. Emmie Alvarado MD, Oncology. 2. Rogelio Lazo MD, Neurosurgery. 3. Loi Barboza MD, Pain Management/Palliative Care. Procedures L2 Vertebral Body Mass Biopsy MICROSCOPIC DIAGNOSIS: L2 vertebral body mass, CT-guided core needle biopsies: -- Metastatic adenocarcinoma (please see comment). 2D Echocardiogram Conclusions 1. Normal left ventricular systolic function. Normal left ventricular cavity size. Normal left ventricular wall thickness. Ejection fraction is visually estimated based on Torres`s method at 62 %. Tissue Doppler/Mitral Doppler indices are consistent with impaired relaxation (Stage I diastolic dysfunction). 2. Mild mitral valve regurgitation. 3. No significant aortic stenosis or insufficiency. Aortic sclerosis without stenosis. 4. Estimated peak PA systolic pressure 53 mmHg. There is mild to moderate tricuspid regurgitation. Chest CT with Contrast IMPRESSION: 1. 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 There is acute to subacute severe compression fracture of T2, possibly pathologic fracture. 2. Indeterminate reticulonodular pulmonary opacities are identified bilaterally , possibly representing bronchiolitis/bronchopneumonia, though lymphangitic spread of tumor is not excluded. 3. Enlarged subaortic/left perihilar lymph node is identified, likely additional metastatic disease. 4. Left adrenal nodule/mass is identified, further concerning for metastatic disease. 5. Scattered solid subcutaneous nodules are identified, further concerning for metastatic disease. 6. Moderate pulmonary emphysema and findings of chronic bronchitis are identified. 7. Coronary arterial and aortic atherosclerotic calcifications are present. Lumbar Spine MRI IMPRESSION: Limited examination terminated early by the patient. No intravenous contrast was administered. 1. Bone metastases within the L2 and L3 vertebral bodies, L1 spinous process, left sacral ala, and both iliac bones. 2. Diffusely abnormal bone marrow signal which can be seen in the degenerative replacing process sees. Thoracic Spine MRI IMPRESSION: Limited examination terminated early by the patient. 1. Abnormal bone marrow signal within C5, C6, T9, T12, and L2 suspicious for widespread bone metastases. 2. L2 vertebral body fracture with about 66% height loss and 3 mm retropulsion resulting in mild central canal narrowing. Brain CT IMPRESSION: 1. No acute intracranial abnormality. No intracranial hemorrhage, extra-axial fluid collection, enhancing mass lesion or hydrocephalous. 2. No evidence of metastatic disease at this time. Hx of Present Illness Chief complaint: Low hemoglobin This is a 66-year-old female who presented to the emergency department [facility] and was found to have a low hemoglobin. She was subsequently transferred to [facility]. She reported that she had generalized weakness for approximately the past month. She stated that she usually has her labs done every 3 months to monitor her liver function tests as she is taking Lipitor. She stated that 3 months ago she was not told she had any abnormal hemoglobin. She stated that she has had a decreased appetite over the past 3 months and has lost approximately 40 pounds. She attributed her low appetite to her low hemoglobin. She denied any vaginal bleeding or rectal bleeding. Denied any chest pain or shortness of breath. Denied any fevers. Denied ever having a colonoscopy or endoscopy done. Allergies: NKDA Medications: Naproxen, tramadol, Lipitor Hospital Course The patient was admitted to inpatient setting. The patient had a hemoglobin and hematocrit of 6.1 and 20.9 respectively upon hospitalization. The patient was provided with blood transfusion with improvement in the H&H. Etiology of the patient's underlying anemia remained unclear. The patient had evidence of some iron deficiency. Consequently, she was maintained on iron supplements. The patient had no evidence of any overt bleeding including any rectal or vaginal bleeding. The patient was complaining of this lower back pain and right lower extremity sciatic type pain that started approximately 3 months ago. Consequently, the patient underwent a lumbar spine x-ray that showed no evidence of any acute fracture. The patient had some infiltrates on her chest x-ray from the transferring facility. Consequently, the patient underwent a CT scan of the chest that showed numerous osseous metastasis with an acute to subacute severe compression fracture of T2, possibly pathologic fracture. The CT chest also revealed indeterminate reticulonodular pulmonary opacities possibly representing bronchiolitis/bronchopneumonia. The CT also revealed enlarged subaortic/left perihilar lymph node and scattered solid subcutaneous nodules concerning for metastatic disease. The CT also revealed moderate pulmonary emphysema and findings of chronic bronchitis. 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 Because of the findings of bone metastasis as well as acute T2 compression fracture that could be pathologic and an oncology consult was obtained. The patient underwent a CT-guided needle biopsy of the L2 vertebral mass. The pathology from this mass revealed metastatic adenocarcinoma. However, the primary lesion was not diagnosed since the immunohistochemical staining pattern was nonspecific. However, differential diagnosis includes lung, breast, upper GI, urinary bladder, and thyroid primaries. The block was forwarded for cancer type ID molecular studies. As per the oncologist, the primary location needs to be identified before determination and initiation of treatment. The patient' s brain CT scan did not reveal any evidence of metastatic disease. The patient was seen by neurosurgery for further evaluation of the T2 fracture that was evident on imaging studies. As per the neurosurgeon, the patient had no evidence of any focal neurologic deficits and did not have any evidence of cord compression or nerve root compression. There is no acute neurosurgical intervention indicated at this point. The patient had significant low back pain and right lower extremity pain. Consequently, pain management team was consulted and the patient was started on appropriate analgesics with systemic steroids. The patient's pain improved well with the treatment strategy. The patient was noticed to be debilitated with difficulty walking. Hence physical therapy evaluated the patient. The patient was getting daily physical therapy. The patient lives at home with some roommates and the roommates are unable to take care of the patient. Therefore, the patient needs further rehabilitation before she can be safely released from the hospital. Hence, the patient will be moved to the inpatient acute rehabilitation unit for further rehabilitation. The patient is a chronic nicotine user. The patient's chest CT showed evidence of pulmonary emphysema and chronic bronchitis. The patient most probably has undiagnosed COPD. The patient was started on inhaled bronchodilators both short -acting along with maintenance inhalers with improvement in the patient's respiratory status. The patient had no evidence of any exacerbation of COPD. The patient was treated for any possible underlying bronchopneumonia/ bronchiolitis based on the chest CT findings. The patient also has history of dyslipidemia and she was taking statins at home. The patient was maintained on statins. However, the patient requested for a regular diet. Therefore, the patient was allowed to eat a regular diet. Nevertheless, the patient's fasting lipid panel was satisfactory. The patient's 2D echocardiogram also revealed evidence of pulmonary hypertension with a systolic PA pressure of 53 mmHg. The patient was noticed to have mild to moderate tricuspid regurgitation in the 2D echocardiogram. The reason for the patient's pulmonary hypertension could be from her underlying valvular disease and also from chronic hypoxia from undiagnosed COPD. The patient probably needs a right heart catheterization for confirmation of pulmonary hypertension before initiation of treatment. Outpatient pulmonology follow-up is also advised. Discharge Disposition/Plan The patient will be transferred to inpatient acute rehabilitation unit for further rehabilitation. The patient will continue to take medications as per the medication list. Activities will be as per the discretion of the rehabilitation team. The patient will continue to have a regular diet. At this time I would like to thank all the consultants for seeing the patient, doing the necessary procedures, and providing clinical recommendations. Case discussed with Dr. Bobby. Home Meds Reported Medications Atorvastatin Calcium* (Atorvastatin Calcium*) 20 Mg Tablet, 40 MG PO DAILY, #30 TAB 01/01/17 Discontinued Reported Medications Naproxen* (Aleve*) 220 Mg Capsule, 440 MG PO BID Y for PAIN, #60 CAP 01/01/17 Tramadol HCl (Tramadol HCl) 50 Mg Tablet, 50 MG PO BID Y for PAIN, #60 TAB 01/01/17 Follow-up Plan The patient will be transferred to acute rehabilitation unit. The patient will follow up with outpatient oncology for treatment of her underlying malignancy once the cancer type ID molecular studies are available. Primary Care Provider Not On Staff Doctor Time spent on discharge: 60 minutes ROXANN JACKSON NP Jan 18, 2017 08:00
--- NOTE | 2017-01-18 09:31 | PDOCDIS ---
Discharge Instructions DIAGNOSIS Discharge Diagnosis 1. Metastatic adenocarcinoma with nonspecific immunohistochemical staining pattern. Pending cancer type ID molecular studies. 2. Symptomatic anemia. Normocytic and hypochromic. 3. Iron deficiency (improved with therapy). 4. Intermediate reticulonodular pulmonary opacities suggesting bronchiolitis/ bronchopneumonia. Status post antibiotics. 5. Pulmonary emphysema with chronic bronchitis. COPD. 6. Pulmonary hypertension. 7. Acute to subacute severe compression fracture of T2. Possibly pathological fracture. 8. Leukocytosis. 9. Low back pain and right lower extremity radiating pain. 10. Debility. 11. Dyslipidemia. CONDITION Patient Condition: Stable HOME CARE INSTRUCTIONS: Diet Instructions: RegularSpecial Diet: Regular FOLLOW UP/APPOINTMENTS Follow-up Plan The patient will be transferred to acute rehabilitation unit. The patient will follow up with outpatient oncology for treatment of her underlying malignancy once the cancer type ID molecular studies are available. ROXANN JACKSON NP Jan 18, 2017 09:31
== END 2017-01-18 00:15 | DRG 477 ==
LOC: TEL 18:36 → PP2 01-06 17:25
PROVIDERS: ADMIT Internal Medicine; ATTEND Internal Medicine
PROC: 30233N1 Transfusion of Nonautologous Red Blood Cells into Peripheral Vein, Percutaneous Approach (ICD-10-PCS; principal; 2017-01-02)
PROC: 0QB03ZX Excision of Lumbar Vertebra, Percutaneous Approach, Diagnostic (ICD-10-PCS; 2017-01-08)
DX: C79.51 Secondary malignant neoplasm of bone (principal); J18.9 Pneumonia, unspecified organism; C78.02 Secondary malignant neoplasm of left lung; C79.72 Secondary malignant neoplasm of left adrenal gland; I27.20 Pulmonary hypertension, unspecified; M84.58XA Pathological fracture in neoplastic disease, other specified site, initial encounter for fracture; J21.9 Acute bronchiolitis, unspecified; C80.1 Malignant (primary) neoplasm, unspecified; F17.210 Nicotine dependence, cigarettes, uncomplicated; D63.0 Anemia in neoplastic disease; M54.41 Lumbago with sciatica, right side; D50.9 Iron deficiency anemia, unspecified; J43.9 Emphysema, unspecified; E78.5 Hyperlipidemia, unspecified; Z85.820 Personal history of malignant melanoma of skin
CPT/HCPCS: 36430; 70470; 71260; 72100; 72157; 72158; 77012; 80048; 80053; 80061; 81003; 82378; 82607; 82728; 82746; 83010; 83036; 83540; 83615; 83735; 84100; 84443; 85025; 85045; 85610; 85730; 86703; 86850; 86900; 86901; 86920; 87081; 87086; 88307; 88313; 88341; 88342; 93306; 94640; 97110; 97163; 97530; G0378; J1100; J1170; J1940; J1956; J2250; J2916; J3010; J7030; J7040; P9016; Q9967

== ENCOUNTER 2017-01-18 00:53 | Inpatient (IN) | payer OTHER ==
[~2017-01-18] VITALS: Ht 162.6 cm; Wt 82.0 kg
[~2017-01-18 00:53] MED LIST: ATOR20TA38 PO; NAPR220C2 PO; TRAM50TA2 PO
[2017-01-18 01:00] VITALS: BP 126/62; PULSE 93; RESP 18
[2017-01-18 01:16] VITALS: Ht 162.6 cm; Wt 82.0 kg
[2017-01-18] MEDS ORDERED: ONDANSETRON 4 MG INJ IV PRN (02:00)
[2017-01-18] MEDS ORDERED: ACETAMINOPHEN 325 MG TAB PO PRN (02:00)
[2017-01-18] MEDS ORDERED: HYDROmorphONE 2 MG TAB PO PRN (02:00)
[2017-01-18] MEDS ORDERED: LACTULOSE 30ML CUP PO PRN (02:00)
[2017-01-18] MEDS ORDERED: NACL 0.9% 3 ML SYG IV SCH (02:00)
[2017-01-18] MEDS ORDERED: BISACODYL (EC) 5 MG TAB PO PRN (02:00)
[2017-01-18] MEDS: HYDROmorphONE 1 MG/ML SYG IV PRN ×6 (03:07→20:02)
[2017-01-18 03:29] VITALS: BP 128/60; RESP 18
[2017-01-18] MEDS: ALBUTEROL/IPRATROPIUM (NEB) 3 ML AMP HHN SCH ×5 (05:21→20:10)
[2017-01-18] MEDS: DEXAMETHASONE 4 MG/ML 1 ML INJ IV SCH ×3 (06:07→18:51)
[2017-01-18 07:00] VITALS: BP 130/60; RESP 18
[2017-01-18] MEDS: POLYETHYLENE GLYCOL 17 GM PACKET PO SCH ×2 (09:00→21:00)
[2017-01-18] MEDS: FAMOTIDINE 20 MG TAB PO SCH ×2 (09:01→21:27)
[2017-01-18] MEDS: SALMETEROL/FLUTICASONE 250/50 INHA INH SCH ×2 (09:01→21:28)
[2017-01-18] MEDS: SENNA/DOCUSATE NA (8.6MG/50MG) TAB PO SCH (09:01)
[2017-01-18] MEDS: IBUPROFEN 600 MG TAB PO SCH ×2 (09:01→21:27)
--- NOTE | 2017-01-18 11:09 | CONS ---
Date/Time of Note Date/Time of Note DATE: 01/18/17 TIME: 11:09 Assessment/Plan Assessment/Plan Additional Assessment/Plan 1. Metastatic adenoCA with with pathologic spinalfractures at T2 in addition to vertebral mets at C5-C6, T9-T12, L2 and L3. 2. HTN 3. HL 4. Leucocytosis 2/2 UTI 5. acute UTI 6. COPD Plan : Levaquin 500mg po daily for UTI, will follow up on cx if sent prior to Abx Pain control Bp stable continue dexamethasone 4mg IV Q 6 hr Pepcid for GI prophylaxis SCD for DVT prophylaxis will continue to follow up on patient Consultation Date/Type/Reason Admit Date/Time Jan 18, 2017 at 00:53 Date of Consultation: Jan 18, 2017 Type of Consultation: INTERNAL MEDICINE Referring Provider: NICKI BENOIT MD, [facility] Hx of Present Illness 66-year-old female who was initially admitted with significant anemia and generalized weakness and weight loss. During hospitalization, the patient was noted to have metastatic adenocarcinoma with pathologic spinal fractures at T2 in addition to vertebral mets at C5-C6, T9-T12, L2 and L3. The patient's hospital course is also notable for anemia, pneumonia, and significant impairments in self-care and mobility as compared to baseline. Patient has been admitted to rehabilitation unit for comprehensive interdisciplinary rehab care. he had a leucocytosis and UTI and Internal medicine has been consulted for management of Medical issues. Constitutional: no complaints Eyes: no complaints ENT: no complaints Respiratory: no complaints Cardiovascular: no complaints Gastrointestinal: nausea Genitourinary: no complaints Musculoskeletal: no complaints Skin: no complaints Neurologic: dizziness, headache Endocrine: no complaints Lymphatic: no complaints Psychological: no complaints Immunologic: no complaints Past Medical History Medical History: high cholesterol, hypertension, other (metastatic AdenoCA to spine, COPD, smoker ) Past Surgical History Past Surgical Hx: other (not available ) Social History Alcohol Use: none Smoking Status: Current every day smoker Drug Use: none Exam/Review of Systems Vital Signs Vitals Vital Signs Date Time Temp Pulse Resp B/P Pulse Ox O2 Delivery O2 Flow Rate FiO2 01/18/17 09:29 86 18 86 21 01/18/17 08:00 Nasal Cannula 2.0 01/18/17 07:00 97.9 130/60 Intake and Output 01/17/17 01/17/17 01/18/17 15:00 23:00 07:00 Intake Total 700 ml Output Total 500 ml Balance 200 ml Exam Constitutional: alert Psych: no complaints Head: normocephalic ENMT: nl external ears & nose Neck: non-tender, supple Respiratory: clear to auscultation, normal air movement Cardiovascular: regular rate and rhythm Gastrointestinal: non-tender, soft Musculoskeletal: muscle weakness, nl extremities to inspection, swelling Extremities: normal pulses 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: MOLDING ENGINEER II-XII intact Results Result Diagram: 01/18/17 0641 01/18/17 0641 Results 24 hrs Laboratory Tests Test 01/18/17 06:41 01/18/17 07:00 White Blood Count 19.6 #H Red Blood Count 3.92 L Hemoglobin 11.1 L Hematocrit 35.5 L Mean Corpuscular Volume 90.6 Mean Corpuscular Hemoglobin 28.3 L Mean Corpuscular Hemoglobin Concent 31.3 L Red Cell Distribution Width 19.1 H Platelet Count 272 Mean Platelet Volume 10.0 Neutrophils % 87.7 H Lymphocytes % 4.9 L Monocytes % 6.4 Eosinophils % 0.0 Basophils % 0.1 Nucleated Red Blood Cells % 0.0 Neutrophils # 17.2 H Lymphocytes # 1.0 Monocytes # 1.3 H Eosinophils # 0.0 Basophils # 0.0 Nucleated Red Blood Cells # 0.0 Sodium Level 138 Potassium Level 4.1 Chloride Level 102 Carbon Dioxide Level 28 Anion Gap 12 Blood Urea Nitrogen 28 H Creatinine 0.52 Glucose Level 96 Calcium Level 8.8 Total Bilirubin 0.6 Direct Bilirubin 0.00 Indirect Bilirubin 0.6 Aspartate Amino Transf (AST/SGOT) 24 Alanine Aminotransferase (ALT/SGPT) 33 Alkaline Phosphatase 131 H Total Protein 5.5 L Albumin 2.8 L Globulin 2.70 Albumin/Globulin Ratio 1.03 Urine Color YELLOW Urine Clarity SLIGHTLY CLOUDY A Urine pH 6.0 Urine Specific [place] 1.021 Urine Ketones NEGATIVE Urine Nitrite NEGATIVE Urine Bilirubin NEGATIVE Urine Urobilinogen 2+ H Urine Leukocyte Esterase NEGATIVE Urine Microscopic RBC 4 Urine Microscopic WBC 1 Urine Squamous Epithelial Cells FEW Urine Amorphous Crystals FEW A Urine Bacteria FEW A Urine Mucus FEW A Urine Hemoglobin NEGATIVE Urine Glucose NEGATIVE Urine Total Protein NEGATIVE Medications Medications Current Medications Ibuprofen (Motrin) 600 mg BID PO Last administered on 01/18/17t 09:01; Admin Dose 600 MG; Start 01/18/17 at 09:00 Lactulose (Enulose) 20 gm Q6H PRN PO CONSTIPATION; Start 01/18/17 at 02:00 Ondansetron HCl (Zofran Inj) 4 mg Q6H PRN IV NAUSEA AND/OR VOMITING; Start 01/18/17 at 02:00 Polyethylene Glycol (Miralax) 17 gm BID PO Last administered on 01/18/17 09:00 ; Admin Dose 17 GM; Start 01/18/17 at 09:00 Salmeterol Xinafoate/ Fluticasone (Advair 250/50 Diskus) 1 inh BID INH Last administered on 01/18/17 09:01; Admin Dose 1 INH; Start 01/18/17 at 09:00 Acetaminophen (Tylenol Tab) 650 mg Q6H PRN PO PAIN AND OR ELEVATED TEMP; Start 01/18/17 at 02:00 Atorvastatin Calcium (Lipitor) 40 mg DAILY@21 PO ; Start 01/18/17 at 21:00 Bisacodyl (Dulcolax) 10 mg DAILY PRN PO CONSTIPATION; Start 01/18/17 at 02:00 Dexamethasone (Decadron) 4 mg Q6 IV Last administered on 01/18/17 06:07; Admin Dose 4 MG; Start 01/18/17 at 06:00 Senna/Docusate Sodium (Senokot-S) 1 tab DAILY PO Last administered on 09:01; Admin Dose 1 TAB; Start 01/18/17 at 09:00 Famotidine (Pepcid) 20 mg Q12 PO Last administered on 01/18/17 09:01; Admin Dose 20 MG; Start 01/18/17 at 09:00 Hydromorphone HCl (Dilaudid) 1 mg Q3H PRN IV PAIN Last administered on 09:00; Admin Dose 1 MG; Start 01/18/17 at 02:00 Hydromorphone HCl (Dilaudid) 2 mg Q4H PRN PO PAIN; Start 01/18/17 at 02:00 LORAINE PRESTON MD Jan 18, 2017 11:09
--- NOTE | 2017-01-18 13:16 | CONS ---
DATE OF ADMISSION: 01/18/2017 DATE OF CONSULTATION: 01/18/2017 REHABILITATION POST ADMISSION PHYSICIAN EVALUATION REHABILITATION IMPAIRMENT CATEGORY: Pathologic spinal fractures and metastasis with radicular back pain. ACTIVE COMORBIDITIES: 1. Metastatic adenocarcinoma. 2. Anemia. 3. Pneumonia. 4. COPD. 5. Hypertension. 6. Hyperlipidemia. 7. Urinary tract infection. 8. Impairments in self-care and mobility. HISTORY OF PRESENT ILLNESS: The patient is a pleasant 66-year-old female who was initially admitted with significant anemia and generalized weakness and weight loss. During hospitalization, the patient was noted to have metastatic adenocarcinoma with pathologic spinal fractures at T2 in addition to vertebral mets at C5-C6, T9-T12, L2 and L3. The patient's hospital course is also notable for anemia, pneumonia, and significant impairments in self-care and mobility as compared to baseline. Patient has been cleared to transfer to the rehabilitation unit for comprehensive interdisciplinary rehab care. FUNCTIONAL HISTORY: Prior to recent events, she was independent in self-care tasks and mobility. Currently, the patient requires maximal assist for self-care and mobility tasks. I have reviewed the preadmission screen and the patient's current functional status is consistent with the preadmission screen. SOCIAL HISTORY: The patient reports living at home with a roommate and she hopes to return there upon discharge. PAST MEDICAL HISTORY: Hyperlipidemia, hypertension, COPD. CURRENT MEDICATIONS: 1. Albuterol inhaler. 2. Lipitor 40 mg p.o. daily. 3. Decadron 4 mg IV q.6h. 4. Senokot daily. 5. Pepcid 20 mg b.i.d. 6. Dilaudid p.r.n. 7. Motrin 600 mg b.i.d. 8. Zofran p.r.n. 9. Advair inhaler. ALLERGIES: THE PATIENT WITH NO KNOWN DRUG ALLERGIES. PHYSICAL EXAMINATION: VITAL SIGNS: The patient is currently afebrile with stable vital signs. HEENT: The extraocular motions are intact. Oropharynx clear. NECK: Supple. LUNGS: Clear anteriorly. CARDIAC: S1, S2. ABDOMEN: Soft, nontender, positive bowel sounds. NEUROLOGIC: She is awake and alert. She is oriented to person and place and hospital. She can follow simple 1-step commands. She demonstrates antigravity strength in bilateral upper extremity and lower extremity. She does have impaired dynamic balance. PLAN: The patient has been admitted for comprehensive interdisciplinary acute rehab and is anticipated to tolerate 3 hours of daily therapy in divided doses for at least 5/7 days a week. The treatment plan will include: 1. Physical therapy to focus on bed mobility, transfers, and household ambulation with the goal of having the patient reach household ambulation and wheelchair mobility with the goal of having the patient reach a standby assist level. 2. Occupational therapy to focus on hygiene, grooming, dressing, bathing, and toileting activities with the goal of having the patient reach standby assist level. 3. Rehabilitation nursing for carryover of therapeutic interventions, the goal of continent of bowel and bladder, the goal of pain adequately managed on oral medications. ESTIMATED LENGTH OF STAY: 14 days. DISPOSITION GOAL: Home. REHABILITATION BARRIER: Pain. INTERVENTION FOR BARRIER: Interdisciplinary approach. I acknowledge that I performed a full physical examination on this patient within 24 hours of admission to the rehabilitation unit. I believe the patient is a good candidate for comprehensive interdisciplinary rehab care and is anticipated to make reasonable goals in a reasonable period of time as outlined above. Dictated By: MADAN MORENO/SPIKE Conf#: [id number] DID#: [id number] MTDD
[2017-01-18 20:00] VITALS: BP 125/58; RESP 18
[2017-01-18] MEDS: ATORVASTATIN 40 MG TAB PO SCH (21:27)
[2017-01-19] MEDS: DEXAMETHASONE 4 MG/ML 1 ML INJ IV SCH ×5 (00:21→23:29)
[2017-01-19] MEDS: HYDROmorphONE 1 MG/ML SYG IV PRN ×7 (00:22→23:29)
[2017-01-19] MEDS: ALBUTEROL/IPRATROPIUM (NEB) 3 ML AMP HHN SCH ×6 (01:00→21:00)
[2017-01-19 02:00] VITALS: BP 127/62; RESP 18
[2017-01-19] MEDS ORDERED: LEVOFLOXACIN 500 MG TAB PO SCH (06:00)
[2017-01-19 07:30] VITALS: BP 136/61; RESP 18
[2017-01-19 07:59] VITALS: BP 136/61; RESP 18
[2017-01-19] MEDS: SALMETEROL/FLUTICASONE 250/50 INHA INH SCH ×2 (09:00→20:37)
[2017-01-19] MEDS: IBUPROFEN 600 MG TAB PO SCH ×2 (10:32→20:37)
[2017-01-19] MEDS: POLYETHYLENE GLYCOL 17 GM PACKET PO SCH ×2 (10:32→20:38)
[2017-01-19] MEDS: SENNA/DOCUSATE NA (8.6MG/50MG) TAB PO SCH (10:32)
[2017-01-19] MEDS: FAMOTIDINE 20 MG TAB PO SCH ×2 (10:32→20:37)
--- NOTE | 2017-01-19 11:14 | CONS ---
Date/Time of Note Date/Time of Note DATE: 01/19/17 TIME: 11:12 Consult Date/Type/Reason Admit Date/Time Jan 18, 2017 at 00:53 Initial Consult Date 01/18/17 Type of Consultation: INTERNAL MEDICINE Ordering Provider: NICKI BENOIT MD, [facility] Subjective reports pain Objective pulm-cta abd-soft mod bed mobility max transfer Vital Signs Date Time Temp Pulse Resp B/P Pulse Ox O2 Delivery O2 Flow Rate FiO2 01/19/17 07:59 97.6 84 18 136/61 90 01/19/17 07:48 Nasal Cannula 2.0 28 Intake and Output 01/18/17 01/18/17 01/19/17 15:00 23:00 07:00 Intake Total 800 ml 1050 ml Output Total 600 ml 600 ml Balance 200 ml 450 ml Results/Medications Result Diagram: 01/18/17 0641 01/18/17 0641 Medications Current Medications Ibuprofen (Motrin) 600 mg BID PO Last administered on 01/19/17 10:32; Admin Dose 600 MG; Start 01/18/17 at 09:00 Lactulose (Enulose) 20 gm Q6H PRN PO CONSTIPATION; Start 01/18/17 at 02:00 Ondansetron HCl (Zofran Inj) 4 mg Q6H PRN IV NAUSEA AND/OR VOMITING; Start 01/18/17 at 02:00 Polyethylene Glycol (Miralax) 17 gm BID PO Last administered on 01/19/17 10:32 ; Admin Dose 17 GM; Start 01/18/17 at 09:00 Salmeterol Xinafoate/ Fluticasone (Advair 250/50 Diskus) 1 inh BID INH Last administered on 01/19/17 09:00; Admin Dose 1 INH; Start 01/18/17 at 09:00 Acetaminophen (Tylenol Tab) 650 mg Q6H PRN PO PAIN AND OR ELEVATED TEMP; Start 01/18/17 at 02:00 Atorvastatin Calcium (Lipitor) 40 mg DAILY@21 PO Last administered on 21:27; Admin Dose 40 MG; Start 01/18/17 at 21:00 Bisacodyl (Dulcolax) 10 mg DAILY PRN PO CONSTIPATION; Start 01/18/17 at 02:00 Dexamethasone (Decadron) 4 mg Q6 IV Last administered on 01/19/17 05:24; Admin Dose 4 MG; Start 01/18/17 at 06:00 Senna/Docusate Sodium (Senokot-S) 1 tab DAILY PO Last administered on 10:32; Admin Dose 1 TAB; Start 01/18/17 at 09:00 Famotidine (Pepcid) 20 mg Q12 PO Last administered on 01/19/17 10:32; Admin Dose 20 MG; Start 01/18/17 at 09:00 Hydromorphone HCl (Dilaudid) 1 mg Q3H PRN IV PAIN Last administered on 08:21; Admin Dose 1 MG; Start 01/18/17 at 02:00 Hydromorphone HCl (Dilaudid) 2 mg Q4H PRN PO PAIN; Start 01/18/17 at 02:00 Assessment/Plan Additional Assessment/Plan Rehab -pathologic spinal fractures and metastasis with radicular back pain. Continue current treatment plan Pain- adjust pain meds Metastatic adenocarcinoma. Anemia. Pneumonia. COPD. Hypertension. Hyperlipidemia. Urinary tract infection. MADAN AMEZCUA MD Jan 19, 2017 11:14
--- NOTE | 2017-01-19 11:17 | CONS ---
Date/Time of Note Date/Time of Note DATE: 01/19/17 TIME: 11:11 Assessment/Plan Assessment/Plan Chief Complaint/Hosp Course 1. 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 -Patient is being followed by oncology. Follow-up with cancer type ID to narrow down the primary site of disease -Patient refused MRI to rule out brain mets. -Follow-up with oncology for further management. 2.T2 pathologic compression fracture -Status post neurosurgery evaluation and recommended patient benefit from kyphoplasty, other recommendation is consideration of radiation if patient becomes symptomatic. -Continue pain medications. Plan is to add oxycodone 20 mg with eventual tapering of IV Dilaudid. 3. Leucocytosis 2/2 steroids. No evidence of infection. Urine culture consistent with contamination. -Stop antibiotics as it is not needed at this time. 4. Essential hypertension -Continue antihypertensives. 5. Dyslipidemia. -On statin. 6. Emphysema/chronic obstructive pulmonary disease. -Continue bronchodilators as needed. 7. Intermediate reticulonodular pulmonary opacities suggesting bronchiolitis/ bronchopneumonia. Status post treatment with antibiotics. 8. Anemia, most likely secondary to underlying metastatic process, cannot exclude possible myelophthisic process. -Stable H&H. 9. Progressive debility/chronic pain with #1. -PT eval and treatment. 10. Pulmonary hypertension. Stable. 11. Nicotine use. Cessation advised. 12. Anxiety. -Ambien at bedtime as needed Pepcid for GI prophylaxis SCD for DVT prophylaxis Patient was seen in collaboration with . Problems: Consultation Date/Type/Reason Admit Date/Time Jan 18, 2017 at 00:53 Initial Consult Date 01/18/17 Type of Consultation: INTERNAL MEDICINE Referring Provider: NICKI BENOIT MD, [facility] HR Interval Summary Free Text/Dictation Patient with diffuse generalized and back pain requiring Dilaudid IV every 3 hours. She also appears very anxious. Exam/Review of Systems Vital Signs Vitals Vital Signs Date Time Temp Pulse Resp B/P Pulse Ox O2 Delivery O2 Flow Rate FiO2 01/19/17 07:59 97.6 84 18 136/61 90 01/19/17 07:48 Nasal Cannula 2.0 28 Intake and Output 01/18/17 01/18/17 01/19/17 15:00 23:00 07:00 Intake Total 800 ml 1050 ml Output Total 600 ml 600 ml Balance 200 ml 450 ml Exam General: Chronically ill looking female, in diffuse generalized pain. HEENT: Normocephalic, Atraumatic, No laceration or hematoma; Eyes: PEERL, Conjunctiva clear, Anicteric sclera Neck: Supple without any lymphadenopathy, nontender, no JVD, no carotid bruits, trachea midline, no thyromegaly Cardiac: S1, S2 auscultated, regular rhythm and rate, no mumurs or gallop Pulmonary: Rhonchi left upper and lower lobes. Diminished breath sound bibasilar. Normal respiratory effort. No wheezing. GI: Abdomen normal to inspection. Soft, non tender, non- distended, no masses, no rebound tenderness or guarding. Bowel sounds active on all four quadrants Genitourinary: Deferred Extremities: With generalized weakness to bilateral lower extremities. No cyanosis, clubbing, or edema. Pulses [2+] bilaterally. Neurologic: Patient is very anxious. Otherwise, alert to person, place, time, and situation. Sensation intact. Skin: Clean,dry, and intact. No ecchymosis, no rashes, or lesions Results Result Diagram: 01/18/1764001/18/1741 Medications Medications Current Medications Ibuprofen (Motrin) 600 mg BID PO Last administered on 01/19/17 10:32; Admin Dose 600 MG; Start 01/18/17 at 09:00 Lactulose (Enulose) 20 gm Q6H PRN PO CONSTIPATION; Start 01/18/17 at 02:00 Ondansetron HCl (Zofran Inj) 4 mg Q6H PRN IV NAUSEA AND/OR VOMITING; Start 01/18/17 at 02:00 Polyethylene Glycol (Miralax) 17 gm BID PO Last administered on 01/19/17 10:32 ; Admin Dose 17 GM; Start 01/18/17 at 09:00 Salmeterol Xinafoate/ Fluticasone (Advair 250/50 Diskus) 1 inh BID INH Last administered on 01/19/17 09:00; Admin Dose 1 INH; Start 01/18/17 at 09:00 Acetaminophen (Tylenol Tab) 650 mg Q6H PRN PO PAIN AND OR ELEVATED TEMP; Start 01/18/17 at 02:00 Atorvastatin Calcium (Lipitor) 40 mg DAILY@21 PO Last administered on 21:27; Admin Dose 40 MG; Start 01/18/17 at 21:00 Bisacodyl (Dulcolax) 10 mg DAILY PRN PO CONSTIPATION; Start 01/18/17 at 02:00 Dexamethasone (Decadron) 4 mg Q6 IV Last administered on 01/19/17 05:24; Admin Dose 4 MG; Start 01/18/17 at 06:00 Senna/Docusate Sodium (Senokot-S) 1 tab DAILY PO Last administered on 10:32; Admin Dose 1 TAB; Start 01/18/17 at 09:00 Famotidine (Pepcid) 20 mg Q12 PO Last administered on 01/19/17 10:32; Admin Dose 20 MG; Start 01/18/17 at 09:00 Hydromorphone HCl (Dilaudid) 1 mg Q3H PRN IV PAIN Last administered on 08:21; Admin Dose 1 MG; Start 01/18/17 at 02:00 Hydromorphone HCl (Dilaudid) 2 mg Q4H PRN PO PAIN; Start 01/18/17 at 02:00 TONY MARX NP Jan 19, 2017 11:17
[2017-01-19] MEDS ORDERED: ZOLPIDEM 5 MG TAB PO PRN (11:30)
[2017-01-19] MEDS: oxyCODONE (CR) 10 MG TAB [oxyCONTIN] PO SCH ×2 (12:31→22:11)
--- NOTE | 2017-01-19 13:10 | CONS ---
Date/Time of Note Date/Time of Note DATE: 01/19/17 TIME: 13:08 Assessment/Plan Assessment/Plan Chief Complaint/Hosp Course 66-year-old female who was initially admitted with significant anemia and generalized weakness and weight loss. During hospitalization, the patient was noted to have metastatic adenocarcinoma with pathologic spinal fractures at T2 in addition to vertebral mets at C5-C6, T9-T12, L2 and L3. The patient's hospital course is also notable for anemia, pneumonia, and significant impairments in self-care and mobility as compared to baseline. Patient has been admitted to rehabilitation unit for comprehensive interdisciplinary rehab care. he had a leucocytosis and UTI and Internal medicine has been consulted for management of Medical issues. Problems: Additional Assessment/Plan 1. Metastatic adenoCA with with pathologic spinalfractures at T2 in addition to vertebral mets at C5-C6, T9-T12, L2 and L3. 2. HTN 3. HL 4. Leucocytosis 2/2 UTI 5. acute UTI 6. COPD Plan : Levaquin 500mg po daily for UTI, will follow up on cx if sent prior to Abx Pain control continue dexamethasone 4mg IV Q 6 hr- change to Q 8 hr Pepcid for GI prophylaxis SCD for DVT prophylaxis Consultation Date/Type/Reason Admit Date/Time Jan 18, 2017 at 00:53 Initial Consult Date 01/18/17 Type of Consultation: INTERNAL MEDICINE Referring Provider: NICKI BENOIT MD, [facility] 24 HR Interval Summary Free Text/Dictation afebriel, no acute events, Bp stable, no labs available today to review Exam/Review of Systems Vital Signs Vitals Vital Signs Date Time Temp Pulse Resp B/P Pulse Ox O2 Delivery O2 Flow Rate FiO2 01/19/17 12:59 2.0 01/19/17 12:53 80 20 93 Nasal Cannula 28 01/19/17 07:59 97.6 136/61 Intake and Output 01/18/17 01/18/17 01/19/17 15:00 23:00 07:00 Intake Total 800 ml 1050 ml Output Total 600 ml 600 ml Balance 200 ml 450 ml Exam Constitutional: alert Psych: no complaints Head: normocephalic ENMT: nl external ears & nose Neck: non-tender, supple Respiratory: clear to auscultation, normal air movement Cardiovascular: regular rate and rhythm Gastrointestinal: non-tender, soft Musculoskeletal: muscle weakness, nl extremities to inspection, swelling Extremities: normal pulses 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: 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 II-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 intact Results Result Diagram: 01/18/17 0641 01/18/17 0641 Medications Medications Current Medications Ibuprofen (Motrin) 600 mg BID PO Last administered on 01/19/17 10:32; Admin Dose 600 MG; Start 01/18/17 at 09:00 Lactulose (Enulose) 20 gm Q6H PRN PO CONSTIPATION; Start 01/18/17 at 02:00 Ondansetron HCl (Zofran Inj) 4 mg Q6H PRN IV NAUSEA AND/OR VOMITING; Start 01/18/17 at 02:00 Polyethylene Glycol (Miralax) 17 gm BID PO Last administered on 01/19/17 10:32 ; Admin Dose 17 GM; Start 01/18/17 at 09:00 Salmeterol Xinafoate/ Fluticasone (Advair 250/50 Diskus) 1 inh BID INH Last administered on 01/19/17 09:00; Admin Dose 1 INH; Start 01/18/17 at 09:00 Acetaminophen (Tylenol Tab) 650 mg Q6H PRN PO PAIN AND OR ELEVATED TEMP; Start 01/18/17 at 02:00 Atorvastatin Calcium (Lipitor) 40 mg DAILY@21 PO Last administered on 21:27; Admin Dose 40 MG; Start 01/18/17 at 21:00 Bisacodyl (Dulcolax) 10 mg DAILY PRN PO CONSTIPATION; Start 01/18/17 at 02:00 Dexamethasone (Decadron) 4 mg Q6 IV Last administered on 01/19/17 12:30; Admin Dose 4 MG; Start 01/18/17 at 06:00 Senna/Docusate Sodium (Senokot-S) 1 tab DAILY PO Last administered on 10:32; Admin Dose 1 TAB; Start 01/18/17 at 09:00 Famotidine (Pepcid) 20 mg Q12 PO Last administered on 01/19/17 10:32; Admin Dose 20 MG; Start 01/18/17 at 09:00 Hydromorphone HCl (Dilaudid) 2 mg Q4H PRN PO PAIN; Start 01/18/17 at 02:00 Zolpidem Tartrate (Ambien) 5 mg HS PRN PO INSOMNIA; Start 01/19/17 at 11:30 Hydromorphone HCl (Dilaudid) 1 mg Q4H PRN IV PAIN; Start 01/19/17 at 13:00 Oxycodone HCl (Oxycontin) 20 mg Q8 PO Last administered on 01/19/17t 12:31; Admin Dose 20 MG; Start 01/19/17 at 12:00 LORAINE PRESTON MD Jan 19, 2017 13:10 LORAINE PRESTON MD Jan 19, 2017 13:10
[2017-01-19 14:00] VITALS: BP 119/85; RESP 19
[2017-01-19 20:00] VITALS: BP 134/58; RESP 18
[2017-01-19] MEDS: ATORVASTATIN 40 MG TAB PO SCH (20:37)
[2017-01-20] MEDS: ALBUTEROL/IPRATROPIUM (NEB) 3 ML AMP HHN SCH ×6 (01:00→20:18)
[2017-01-20 02:00] VITALS: BP 124/65; RESP 18
[2017-01-20] MEDS: HYDROmorphONE 1 MG/ML SYG IV PRN ×5 (03:30→20:06)
[2017-01-20] MEDS: DEXAMETHASONE 4 MG/ML 1 ML INJ IV SCH ×3 (06:16→17:51)
[2017-01-20] MEDS: oxyCODONE (CR) 10 MG TAB [oxyCONTIN] PO SCH ×3 (06:17→22:03)
[2017-01-20 07:30] VITALS: BP 124/58; RESP 20
[2017-01-20 08:00] VITALS: BP 124/58; RESP 20
[2017-01-20] MEDS: POLYETHYLENE GLYCOL 17 GM PACKET PO SCH ×2 (08:54→20:09)
[2017-01-20] MEDS: SALMETEROL/FLUTICASONE 250/50 INHA INH SCH ×2 (08:54→20:09)
[2017-01-20] MEDS: IBUPROFEN 600 MG TAB PO SCH ×2 (08:54→20:09)
[2017-01-20] MEDS: SENNA/DOCUSATE NA (8.6MG/50MG) TAB PO SCH (08:55)
[2017-01-20] MEDS: FAMOTIDINE 20 MG TAB PO SCH ×2 (08:55→20:09)
--- NOTE | 2017-01-20 09:35 | CONS ---
Date/Time of Note Date/Time of Note DATE: 01/20/17 TIME: 09:34 Consult Date/Type/Reason Admit Date/Time Jan 18, 2017 at 00:53 Initial Consult Date 01/18/17 Type of Consultation: INTERNAL MEDICINE Ordering Provider: NICKI BENOIT MD, [facility] Subjective reports pain improving Objective pulm-cta max assist Vital Signs Date Time Temp Pulse Resp B/P Pulse Ox O2 Delivery O2 Flow Rate FiO2 01/20/17 08:30 95 20 93 Nasal Cannula 2.0 01/20/17 07:30 98.5 124/58 01/19/17 12:53 28 Intake and Output 01/19/17 01/19/17 01/20/17 15:00 23:00 07:00 Intake Total 900 ml 910 ml Output Total 900 ml Balance 0 ml 910 ml Results/Medications Result Diagram: 01/20/17 0628 01/20/17 0629 Results 24 hrs Laboratory Tests Test 01/20/17 06:28 01/20/17 06:29 White Blood Count 17.1 H Red Blood Count 3.80 L Hemoglobin 10.5 L Hematocrit 34.4 L Mean Corpuscular Volume 90.5 Mean Corpuscular Hemoglobin 27.6 L Mean Corpuscular Hemoglobin Concent 30.5 L Red Cell Distribution Width 19.5 H Platelet Count 233 Mean Platelet Volume 10.1 Neutrophils % 89.5 H Lymphocytes % 3.6 L Monocytes % 6.1 Eosinophils % 0.0 Basophils % 0.1 Nucleated Red Blood Cells % 0.0 Neutrophils # 15.3 H Lymphocytes # 0.6 L Monocytes # 1.1 H Eosinophils # 0.0 Basophils # 0.0 Nucleated Red Blood Cells # 0.0 Prothrombin Time 15.8 H Prothrombin Time Ratio 1.2 INR International Normalized Ratio 1.25 Activated Partial Thromboplast Time 26.5 Sodium Level 136 Potassium Level 3.9 Chloride Level 101 Carbon Dioxide Level 27 Anion Gap 12 Blood Urea Nitrogen 25 H Creatinine 0.48 Glucose Level 87 Calcium Level 8.8 Total Bilirubin 0.6 Direct Bilirubin 0.00 Indirect Bilirubin 0.6 Aspartate Amino Transf (AST/SGOT) 24 Alanine Aminotransferase (ALT/SGPT) 32 Alkaline Phosphatase 115 Total Protein 5.5 L Albumin 2.7 L Globulin 2.80 Albumin/Globulin Ratio 0.96 Medications Current Medications Ibuprofen (Motrin) 600 mg BID PO Last administered on 01/20/17 08:54; Admin Dose 600 MG; Start 01/18/17 at 09:00 Lactulose (Enulose) 20 gm Q6H PRN PO CONSTIPATION; Start 01/18/17 at 02:00 Ondansetron HCl (Zofran Inj) 4 mg Q6H PRN IV NAUSEA AND/OR VOMITING; Start 01/18/17 at 02:00 Polyethylene Glycol (Miralax) 17 gm BID PO Last administered on 01/20/17 08:54 ; Admin Dose 17 GM; Start 01/18/17 at 09:00 Salmeterol Xinafoate/ Fluticasone (Advair 250/50 Diskus) 1 inh BID INH Last administered on 01/20/17 08:54; Admin Dose 1 INH; Start 01/18/17 at 09:00 Acetaminophen (Tylenol Tab) 650 mg Q6H PRN PO PAIN AND OR ELEVATED TEMP; Start 01/18/17 at 02:00 Atorvastatin Calcium (Lipitor) 40 mg DAILY@21 PO Last administered on 20:37; Admin Dose 40 MG; Start 01/18/17 at 21:00 Bisacodyl (Dulcolax) 10 mg DAILY PRN PO CONSTIPATION; Start 01/18/17 at 02:00 Dexamethasone (Decadron) 4 mg Q6 IV Last administered on 01/20/17 06:16; Admin Dose 4 MG; Start 01/18/17 at 06:00 Senna/Docusate Sodium (Senokot-S) 1 tab DAILY PO Last administered on 08:55; Admin Dose 1 TAB; Start 01/18/17 at 09:00 Famotidine (Pepcid) 20 mg Q12 PO Last administered on 01/20/17 08:55; Admin Dose 20 MG; Start 01/18/17 at 09:00 Hydromorphone HCl (Dilaudid) 2 mg Q4H PRN PO PAIN; Start 01/18/17 at 02:00 Zolpidem Tartrate (Ambien) 5 mg HS PRN PO INSOMNIA; Start 01/19/17 at 11:30 Hydromorphone HCl (Dilaudid) 1 mg Q4H PRN IV PAIN Last administered on 07:50; Admin Dose 1 MG; Start 01/19/17 at 13:00 Oxycodone HCl (Oxycontin) 20 mg Q8 PO Last administered on 01/20/17t 06:17; Admin Dose 20 MG; Start 01/19/17 at 12:00 Assessment/Plan Additional Assessment/Plan Rehab -pathologic spinal fractures and metastasis with radicular back pain. Continue current treatment plan as tolerated Pain- continue current pain meds Metastatic adenocarcinoma. Anemia. Pneumonia. COPD. Hypertension. Hyperlipidemia. Urinary tract infection. MADAN AMEZCUA MD Jan 20, 2017 09:35
[2017-01-20 14:00] VITALS: BP 137/60; RESP 18
--- NOTE | 2017-01-20 17:26 | CONS ---
Date/Time of Note Date/Time of Note DATE: 01/20/17 TIME: 17:25 Assessment/Plan Assessment/Plan Chief Complaint/Hosp Course 66-year-old female who was initially admitted with significant anemia and generalized weakness and weight loss. During hospitalization, the patient was noted to have metastatic adenocarcinoma with pathologic spinal fractures at T2 in addition to vertebral mets at C5-C6, T9-T12, L2 and L3. The patient's hospital course is also notable for anemia, pneumonia, and significant impairments in self-care and mobility as compared to baseline. Patient has been admitted to rehabilitation unit for comprehensive interdisciplinary rehab care. he had a leucocytosis and UTI and Internal medicine has been consulted for management of Medical issues. Problems: Additional Assessment/Plan 1. Metastatic adenoCA with with pathologic spinalfractures at T2 in addition to vertebral mets at C5-C6, T9-T12, L2 and L3. 2. HTN 3. HL 4. Leucocytosis 2/2 UTI 5. acute UTI 6. COPD Plan : Levaquin 500mg po daily for UTI, URine cx grew mixed gram positive organisms Pain control continue dexamethasone 4mg IV Q 6 hr- change to Q 8 hr Pepcid for GI prophylaxis SCD for DVT prophylaxis Consultation Date/Type/Reason Admit Date/Time Jan 18, 2017 at 00:53 Initial Consult Date 01/18/17 Type of Consultation: INTERNAL MEDICINE Referring Provider: NICKI BENOIT MD, [facility] 24 HR Interval Summary Free Text/Dictation doing ok, BP stable,afebrile Exam/Review of Systems Vital Signs Vitals Vital Signs Date Time Temp Pulse Resp B/P Pulse Ox O2 Delivery O2 Flow Rate FiO2 01/20/17 16:48 88 20 Nasal Cannula 2.0 01/20/17 14:00 98.5 137/60 90 01/19/17 12:53 28 Intake and Output 01/19/17 01/19/17 01/20/17 15:00 23:00 07:00 Intake Total 900 ml 910 ml Output Total 900 ml Balance 0 ml 910 ml Exam Constitutional: alert Psych: no complaints Head: normocephalic ENMT: nl external ears & nose Neck: non-tender, supple Respiratory: clear to auscultation, normal air movement Cardiovascular: regular rate and rhythm Gastrointestinal: non-tender, soft Musculoskeletal: muscle weakness, nl extremities to inspection, swelling Extremities: normal pulses 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: 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 CHILD NURSE II-XII intact Results Result Diagram: 01/20/17 0628 01/20/17 0629 Results 24 hrs Laboratory Tests Test 01/20/17 06:28 01/20/17 06:29 White Blood Count 17.1 H Red Blood Count 3.80 L Hemoglobin 10.5 L Hematocrit 34.4 L Mean Corpuscular Volume 90.5 Mean Corpuscular Hemoglobin 27.6 L Mean Corpuscular Hemoglobin Concent 30.5 L Red Cell Distribution Width 19.5 H Platelet Count 233 Mean Platelet Volume 10.1 Neutrophils % 89.5 H Lymphocytes % 3.6 L Monocytes % 6.1 Eosinophils % 0.0 Basophils % 0.1 Nucleated Red Blood Cells % 0.0 Neutrophils # 15.3 H Lymphocytes # 0.6 L Monocytes # 1.1 H Eosinophils # 0.0 Basophils # 0.0 Nucleated Red Blood Cells # 0.0 Prothrombin Time 15.8 H Prothrombin Time Ratio 1.2 INR International Normalized Ratio 1.25 Activated Partial Thromboplast Time 26.5 Sodium Level 136 Potassium Level 3.9 Chloride Level 101 Carbon Dioxide Level 27 Anion Gap 12 Blood Urea Nitrogen 25 H Creatinine 0.48 Glucose Level 87 Calcium Level 8.8 Total Bilirubin 0.6 Direct Bilirubin 0.00 Indirect Bilirubin 0.6 Aspartate Amino Transf (AST/SGOT) 24 Alanine Aminotransferase (ALT/SGPT) 32 Alkaline Phosphatase 115 Total Protein 5.5 L Albumin 2.7 L Globulin 2.80 Albumin/Globulin Ratio 0.96 Medications Medications Current Medications Ibuprofen (Motrin) 600 mg BID PO Last administered on 01/20/17 08:54; Admin Dose 600 MG; Start 01/18/17 at 09:00 Lactulose (Enulose) 20 gm Q6H PRN PO CONSTIPATION Last administered on 12:10; Admin Dose 20 GM; Start 01/18/17 at 02:00 Ondansetron HCl (Zofran Inj) 4 mg Q6H PRN IV NAUSEA AND/OR VOMITING; Start 01/18/17 at 02:00 Polyethylene Glycol (Miralax) 17 gm BID PO Last administered on 01/20/17 08:54 ; Admin Dose 17 GM; Start 01/18/17 at 09:00 Salmeterol Xinafoate/ Fluticasone (Advair 250/50 Diskus) 1 inh BID INH Last administered on 01/20/17 08:54; Admin Dose 1 INH; Start 01/18/17 at 09:00 Acetaminophen (Tylenol Tab) 650 mg Q6H PRN PO PAIN AND OR ELEVATED TEMP; Start 01/18/17 at 02:00 Atorvastatin Calcium (Lipitor) 40 mg DAILY@21 PO Last administered on 20:37; Admin Dose 40 MG; Start 01/18/17 at 21:00 Bisacodyl (Dulcolax) 10 mg DAILY PRN PO CONSTIPATION; Start 01/18/17 at 02:00 Dexamethasone (Decadron) 4 mg Q6 IV Last administered on 01/20/17 12:10; Admin Dose 4 MG; Start 01/18/17 at 06:00 Senna/Docusate Sodium (Senokot-S) 1 tab DAILY PO Last administered on 08:55; Admin Dose 1 TAB; Start 01/18/17 at 09:00 Famotidine (Pepcid) 20 mg Q12 PO Last administered on 01/20/17 08:55; Admin Dose 20 MG; Start 01/18/17 at 09:00 Hydromorphone HCl (Dilaudid) 2 mg Q4H PRN PO PAIN; Start 01/18/17 at 02:00 Zolpidem Tartrate (Ambien) 5 mg HS PRN PO INSOMNIA; Start 01/19/17 at 11:30 Hydromorphone HCl (Dilaudid) 1 mg Q4H PRN IV PAIN Last administered on 16:10; Admin Dose 1 MG; Start 01/19/17 at 13:00 Oxycodone HCl (Oxycontin) 20 mg Q8 PO Last administered on 01/20/17 14:35; Admin Dose 20 MG; Start 01/19/17 at 12:00 LORAINE PRESTON MD Jan 20, 2017 17:26
[2017-01-20] MEDS: ATORVASTATIN 40 MG TAB PO SCH (20:09)
[2017-01-20 20:39] VITALS: BP 118/58; RESP 18
[2017-01-21] MEDS: HYDROmorphONE 1 MG/ML SYG IV PRN ×4 (00:07→19:15)
[2017-01-21] MEDS: DEXAMETHASONE 4 MG/ML 1 ML INJ IV SCH ×4 (00:07→18:06)
[2017-01-21] MEDS: ALBUTEROL/IPRATROPIUM (NEB) 3 ML AMP HHN SCH ×6 (01:00→20:23)
[2017-01-21 01:36] VITALS: BP 108/53; RESP 18
[2017-01-21] MEDS: oxyCODONE (CR) 10 MG TAB [oxyCONTIN] PO SCH ×3 (06:13→22:02)
[2017-01-21 07:00] VITALS: BP 112/53; RESP 18
[2017-01-21] MEDS: SENNA/DOCUSATE NA (8.6MG/50MG) TAB PO SCH (09:00)
[2017-01-21] MEDS: POLYETHYLENE GLYCOL 17 GM PACKET PO SCH ×2 (09:00→20:32)
[2017-01-21] MEDS: SALMETEROL/FLUTICASONE 250/50 INHA INH SCH ×2 (09:26→20:32)
[2017-01-21] MEDS: FAMOTIDINE 20 MG TAB PO SCH ×2 (09:26→20:32)
[2017-01-21] MEDS: IBUPROFEN 600 MG TAB PO SCH ×2 (09:26→20:32)
[2017-01-21 20:00] VITALS: BP 115/55; RESP 20
[2017-01-21] MEDS: ATORVASTATIN 40 MG TAB PO SCH (20:32)
--- NOTE | 2017-01-21 22:24 | CONS ---
Date/Time of Note Date/Time of Note DATE: 01/21/17 TIME: 22:23 Assessment/Plan Assessment/Plan Chief Complaint/Hosp Course 66-year-old female who was initially admitted with significant anemia and generalized weakness and weight loss. During hospitalization, the patient was noted to have metastatic adenocarcinoma with pathologic spinal fractures at T2 in addition to vertebral mets at C5-C6, T9-T12, L2 and L3. The patient's hospital course is also notable for anemia, pneumonia, and significant impairments in self-care and mobility as compared to baseline. Patient has been admitted to rehabilitation unit for comprehensive interdisciplinary rehab care. he had a leucocytosis and UTI and Internal medicine has been consulted for management of Medical issues. Problems: Additional Assessment/Plan 1. Metastatic adenoCA with with pathologic spinalfractures at T2 in addition to vertebral mets at C5-C6, T9-T12, L2 and L3. 2. HTN 3. HL 4. Leucocytosis 2/2 UTI 5. acute UTI 6. COPD Plan : Levaquin 500mg po daily for UTI, URine cx grew mixed gram positive organisms Pain control continue dexamethasone 4mg IV Q 6 hr- change to Q 8 hr Pepcid for GI prophylaxis SCD for DVT prophylaxis Consultation Date/Type/Reason Admit Date/Time Jan 18, 2017 at 00:53 Initial Consult Date 01/18/17 Type of Consultation: INTERNAL MEDICINE Referring Provider: NICKI BENOIT MD, [facility] 24 HR Interval Summary Free Text/Dictation no acute events overnight, BP stable, afebrile Exam/Review of Systems Vital Signs Vitals Vital Signs Date Time Temp Pulse Resp B/P Pulse Ox O2 Delivery O2 Flow Rate FiO2 01/21/17 20:23 90 18 93 21 01/21/17 19:23 Nasal Cannula 2.0 01/21/17 07:00 98.9 112/53 Intake and Output 01/20/17 01/20/17 01/21/17 15:00 23:00 07:00 Intake Total 640 ml Output Total 800 ml Balance 640 ml -800 ml Exam Constitutional: alert Psych: no complaints Head: normocephalic ENMT: nl external ears & nose Neck: non-tender, supple Respiratory: clear to auscultation, normal air movement Cardiovascular: regular rate and rhythm Gastrointestinal: non-tender, soft Musculoskeletal: muscle weakness, nl extremities to inspection, swelling Extremities: normal pulses 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: [employer] II-XII intact Results Result Diagram: 01/20/1728 01/20/17 0629 Medications Medications Current Medications Ibuprofen (Motrin) 600 mg BID PO Last administered on 01/21/17 20:32; Admin Dose 600 MG; Start 01/18/17 at 09:00 Lactulose (Enulose) 20 gm Q6H PRN PO CONSTIPATION Last administered on 12:10; Admin Dose 20 GM; Start 01/18/17 at 02:00 Ondansetron HCl (Zofran Inj) 4 mg Q6H PRN IV NAUSEA AND/OR VOMITING; Start 01/18/17 at 02:00 Polyethylene Glycol (Miralax) 17 gm BID PO Last administered on 01/20/17 20:09 ; Admin Dose 17 GM; Start 01/18/17 at 09:00 Salmeterol Xinafoate/ Fluticasone (Advair 250/50 Diskus) 1 inh BID INH Last administered on 01/21/17 20:32; Admin Dose 1 INH; Start 01/18/17 at 09:00 Acetaminophen (Tylenol Tab) 650 mg Q6H PRN PO PAIN AND OR ELEVATED TEMP; Start 01/18/17 at 02:00 Atorvastatin Calcium (Lipitor) 40 mg DAILY@21 PO Last administered on 20:32; Admin Dose 40 MG; Start 01/18/17 at 21:00 Bisacodyl (Dulcolax) 10 mg DAILY PRN PO CONSTIPATION; Start 01/18/17 at 02:00 Dexamethasone (Decadron) 4 mg Q6 IV Last administered on 01/21/17 18:06; Admin Dose 4 MG; Start 01/18/17 at 06:00 Senna/Docusate Sodium (Senokot-S) 1 tab DAILY PO Last administered on 08:55; Admin Dose 1 TAB; Start 01/18/17 at 09:00 Famotidine (Pepcid) 20 mg Q12 PO Last administered on 01/21/17 20:32; Admin Dose 20 MG; Start 01/18/17 at 09:00 Hydromorphone HCl (Dilaudid) 2 mg Q4H PRN PO PAIN; Start 01/18/17 at 02:00 Zolpidem Tartrate (Ambien) 5 mg HS PRN PO INSOMNIA; Start 01/19/17 at 11:30 Hydromorphone HCl (Dilaudid) 1 mg Q4H PRN IV PAIN Last administered on 19:15; Admin Dose 1 MG; Start 01/19/17 at 13:00 Oxycodone HCl (Oxycontin) 20 mg Q8 PO Last administered on 01/21/17 22:02; Admin Dose 20 MG; Start 01/19/17 at 12:00 LORAINE PRESTON MD Jan 21, 2017 22:24
[2017-01-22] MEDS: DEXAMETHASONE 4 MG/ML 1 ML INJ IV SCH ×4 (00:14→18:00)
[2017-01-22] MEDS: ALBUTEROL/IPRATROPIUM (NEB) 3 ML AMP HHN SCH ×6 (01:00→19:55)
[2017-01-22 02:00] VITALS: BP 109/62; RESP 20
[2017-01-22] MEDS: oxyCODONE (CR) 10 MG TAB [oxyCONTIN] PO SCH ×3 (06:09→22:00)
[2017-01-22 07:00] VITALS: BP 130/62; RESP 18
[2017-01-22] MEDS: SALMETEROL/FLUTICASONE 250/50 INHA INH SCH (07:56)
[2017-01-22] MEDS: FAMOTIDINE 20 MG TAB PO SCH (07:57)
[2017-01-22] MEDS: IBUPROFEN 600 MG TAB PO SCH (07:57)
[2017-01-22] MEDS: SENNA/DOCUSATE NA (8.6MG/50MG) TAB PO SCH (07:58)
[2017-01-22] MEDS: HYDROmorphONE 1 MG/ML SYG IV PRN ×2 (08:01→11:27)
[2017-01-22] MEDS: POLYETHYLENE GLYCOL 17 GM PACKET PO SCH (09:00)
--- NOTE | 2017-01-22 09:12 | CONS ---
Date/Time of Note Date/Time of Note DATE: 01/22/17 TIME: 09:06 Consult Date/Type/Reason Admit Date/Time Jan 18, 2017 at 00:53 Initial Consult Date 01/18/17 Type of Consultation: INTERNAL MEDICINE Ordering Provider: NICKI BENOIT MD, [facility] Objective Vital Signs Date Time Temp Pulse Resp B/P Pulse Ox O2 Delivery O2 Flow Rate FiO2 01/22/17 08:46 98 20 93 21 01/22/17 07:00 98.3 130/62 01/21/17 19:23 Nasal Cannula 2.0 Intake and Output 01/21/17 01/21/17 01/22/17 15:00 23:00 07:00 Intake Total 1200 ml 240 ml Output Total 600 ml 500 ml Balance 600 ml -260 ml INTERDISCIPLINARY TEAM CONFERENCE BOWEL- Cont BLADDER-Cont SKIN- intact OT- DRESSING-max BATHING-max TOILETING-max PT- BED MOBILITY-max TRANSFERS-max W.C. MOBILITY-max A/P- Interdisciplinary team conference held today. Please see interdisciplinary sheet. Patient with limited activity tolerance. Will pursue lower level of care for therapies. Results/Medications Result Diagram: 01/22/17 0542 01/22/17 0542 Results 24 hrs Laboratory Tests Test 01/22/17 05:42 White Blood Count 17.2 H Red Blood Count 3.72 L Hemoglobin 10.3 L Hematocrit 33.7 L Mean Corpuscular Volume 90.6 Mean Corpuscular Hemoglobin 27.7 L Mean Corpuscular Hemoglobin Concent 30.6 L Red Cell Distribution Width 19.8 H Platelet Count 207 Mean Platelet Volume 10.1 Neutrophils % 91.4 H Lymphocytes % 3.5 L Monocytes % 4.2 Eosinophils % 0.0 Basophils % 0.1 Nucleated Red Blood Cells % 0.0 Neutrophils # 15.7 H Lymphocytes # 0.6 L Monocytes # 0.7 Eosinophils # 0.0 Basophils # 0.0 Nucleated Red Blood Cells # 0.0 Prothrombin Time 14.8 H Prothrombin Time Ratio 1.2 INR International Normalized Ratio 1.16 Activated Partial Thromboplast Time 25.3 Sodium Level 137 Potassium Level 4.3 Chloride Level 104 Carbon Dioxide Level 29 Anion Gap 8 Blood Urea Nitrogen 29 H Creatinine 0.49 Glucose Level 103 Calcium Level 9.3 Total Bilirubin 0.4 Direct Bilirubin 0.00 Indirect Bilirubin 0.4 Aspartate Amino Transf (AST/SGOT) 30 Alanine Aminotransferase (ALT/SGPT) 36 Alkaline Phosphatase 124 H Total Protein 5.6 L Albumin 2.6 L Globulin 3.00 Albumin/Globulin Ratio 0.86 Medications Current Medications Ibuprofen (Motrin) 600 mg BID PO Last administered on 01/22/17 07:57; Admin Dose 600 MG; Start 01/18/17 at 09:00 Lactulose (Enulose) 20 gm Q6H PRN PO CONSTIPATION Last administered on 12:10; Admin Dose 20 GM; Start 01/18/17 at 02:00 Ondansetron HCl (Zofran Inj) 4 mg Q6H PRN IV NAUSEA AND/OR VOMITING; Start 01/18/17 at 02:00 Polyethylene Glycol (Miralax) 17 gm BID PO Last administered on 01/20/17 20:09 ; Admin Dose 17 GM; Start 01/18/17 at 09:00 Salmeterol Xinafoate/ Fluticasone (Advair 250/50 Diskus) 1 inh BID INH Last administered on 01/22/17 07:56; Admin Dose 1 INH; Start 01/18/17 at 09:00 Acetaminophen (Tylenol Tab) 650 mg Q6H PRN PO PAIN AND OR ELEVATED TEMP; Start 01/18/17 at 02:00 Atorvastatin Calcium (Lipitor) 40 mg DAILY@21 PO Last administered on 20:32; Admin Dose 40 MG; Start 01/18/17 at 21:00 Bisacodyl (Dulcolax) 10 mg DAILY PRN PO CONSTIPATION; Start 01/18/17 at 02:00 Dexamethasone (Decadron) 4 mg Q6 IV Last administered on 01/22/17 06:09; Admin Dose 4 MG; Start 01/18/17 at 06:00 Senna/Docusate Sodium (Senokot-S) 1 tab DAILY PO Last administered on 07:58; Admin Dose 1 TAB; Start 01/18/17 at 09:00 Famotidine (Pepcid) 20 mg Q12 PO Last administered on 01/22/17 07:57; Admin Dose 20 MG; Start 01/18/17 at 09:00 Hydromorphone HCl (Dilaudid) 2 mg Q4H PRN PO PAIN; Start 01/18/17 at 02:00 Zolpidem Tartrate (Ambien) 5 mg HS PRN PO INSOMNIA; Start 01/19/17 at 11:30 Hydromorphone HCl (Dilaudid) 1 mg Q4H PRN IV PAIN Last administered on 08:01; Admin Dose 1 MG; Start 01/19/17 at 13:00 Oxycodone HCl (Oxycontin) 20 mg Q8 PO Last administered on 01/22/17 06:09; Admin Dose 20 MG; Start 01/19/17 at 12:00 MADAN AMEZCUA MD Jan 22, 2017 09:12 MADAN AMEZCUA MD Jan 22, 2017 09:12
--- NOTE | 2017-01-22 13:43 | PN ---
Date/Time of Note Date/Time of Note DATE: 01/22/17 TIME: 13:36 Assessment/Plan VTE Prophylaxis VTE Prophylaxis Intervention: ambulation Lines/Catheters IV [facility]ter Type (from [email or web address] Urinary Cath still in place: No Assessment/Plan Chief Complaint/Hosp Course 1. 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 -Patient is being followed by oncology. Follow-up with cancer type ID to narrow down the primary site of disease -Patient refused MRI to rule out brain mets. -Follow-up with oncology for further management. 2.T2 pathologic compression fracture -Status post neurosurgery evaluation and recommended patient benefit from kyphoplasty, other recommendation is consideration of radiation if patient becomes symptomatic. -Continue pain medications. Patient is on oxycodone 20 mg oral less IV Dilaudid. 3. Steroid-induced leukocytosis. Currently no indication for antibiotics as urine culture is more likely contaminated. 4. Essential hypertension -Continue antihypertensives. 5. Dyslipidemia. -On statin. 6. Emphysema/chronic obstructive pulmonary disease. -Continue bronchodilators as needed. 7. Intermediate reticulonodular pulmonary opacities suggesting bronchiolitis/ bronchopneumonia. Status post treatment with antibiotics. 8. Anemia, most likely secondary to underlying metastatic process, cannot exclude possible myelophthisic process. -Stable H&H. 9. Progressive debility/chronic pain with #1. -PT eval and treatment. 10. Pulmonary hypertension. Stable. 11. Nicotine use. Cessation advised. 12. Anxiety. -Ambien at bedtime as needed Pepcid for GI prophylaxis SCD for DVT prophylaxis Disposition: Patient does not want to participate in aggressive physical therapy. At this time, the plan is to send patient to low-paced physical therapy at a assisted if she is amenable. Patient was seen in collaboration with . Problems: Subjective 24 Hr Interval Summary Free Text/Dictation Patient denies to participate in physical therapy and she wanted to sleep. She has been taking pain medications. Exam/Review of Systems Vital Signs Vitals Vital Signs Date Time Temp Pulse Resp B/P Pulse Ox O2 Delivery O2 Flow Rate FiO2 01/22/17 08:46 98 20 93 21 01/22/17 08:00 Nasal Cannula 2.0 01/22/17 07:00 98.3 130/62 Intake and Output 01/21/17 01/21/17 01/22/17 15:00 23:00 07:00 Intake Total 1200 ml 240 ml Output Total 600 ml 500 ml Balance 600 ml -260 ml Exam General: Chronically ill looking female, in diffuse generalized pain. HEENT: Normocephalic, Atraumatic, No laceration or hematoma; Eyes: PEERL, Conjunctiva clear, Anicteric sclera Neck: Supple without any lymphadenopathy, nontender, no JVD, no carotid bruits, trachea midline, no thyromegaly Cardiac: S1, S2 auscultated, regular rhythm and rate, no mumurs or gallop Pulmonary: Rhonchi left upper and lower lobes. Diminished breath sound bibasilar. Normal respiratory effort. No wheezing. GI: Abdomen normal to inspection. Soft, non tender, non- distended, no masses, no rebound tenderness or guarding. Bowel sounds active on all four quadrants Genitourinary: Deferred Extremities: With generalized weakness to bilateral lower extremities. No cyanosis, clubbing, or edema. Pulses [2+] bilaterally. Neurologic: Patient is very anxious. Otherwise, alert to person, place, time, and situation. Sensation intact. Skin: Clean,dry, and intact. No ecchymosis, no rashes, or lesions Results Result Diagram: 01/22/17 0542 01/22/17 0542 Results 24 hrs Laboratory Tests Test 01/22/17 05:42 White Blood Count 17.2 H Red Blood Count 3.72 L Hemoglobin 10.3 L Hematocrit 33.7 L Mean Corpuscular Volume 90.6 Mean Corpuscular Hemoglobin 27.7 L Mean Corpuscular Hemoglobin Concent 30.6 L Red Cell Distribution Width 19.8 H Platelet Count 207 Mean Platelet Volume 10.1 Neutrophils % 91.4 H Lymphocytes % 3.5 L Monocytes % 4.2 Eosinophils % 0.0 Basophils % 0.1 Nucleated Red Blood Cells % 0.0 Neutrophils # 15.7 H Lymphocytes # 0.6 L Monocytes # 0.7 Eosinophils # 0.0 Basophils # 0.0 Nucleated Red Blood Cells # 0.0 Prothrombin Time 14.8 H Prothrombin Time Ratio 1.2 INR International Normalized Ratio 1.16 Activated Partial Thromboplast Time 25.3 Sodium Level 137 Potassium Level 4.3 Chloride Level 104 Carbon Dioxide Level 29 Anion Gap 8 Blood Urea Nitrogen 29 H Creatinine 0.49 Glucose Level 103 Calcium Level 9.3 Total Bilirubin 0.4 Direct Bilirubin 0.00 Indirect Bilirubin 0.4 Aspartate Amino Transf (AST/SGOT) 30 Alanine Aminotransferase (ALT/SGPT) 36 Alkaline Phosphatase 124 H Total Protein 5.6 L Albumin 2.6 L Globulin 3.00 Albumin/Globulin Ratio 0.86 Medications Medications Current Medications Ibuprofen (Motrin) 600 mg BID PO Last administered on 01/22/17 07:57; Admin Dose 600 MG; Start 01/18/17 at 09:00 Lactulose (Enulose) 20 gm Q6H PRN PO CONSTIPATION Last administered on 12:10; Admin Dose 20 GM; Start 01/18/17 at 02:00 Ondansetron HCl (Zofran Inj) 4 mg Q6H PRN IV NAUSEA AND/OR VOMITING; Start 01/18/17 at 02:00 Polyethylene Glycol (Miralax) 17 gm BID PO Last administered on 01/20/17 20:09 ; Admin Dose 17 GM; Start 01/18/17 at 09:00 Salmeterol Xinafoate/ Fluticasone (Advair 250/50 Diskus) 1 inh BID INH Last administered on 01/22/17 07:56; Admin Dose 1 INH; Start 01/18/17 at 09:00 Acetaminophen (Tylenol Tab) 650 mg Q6H PRN PO PAIN AND OR ELEVATED TEMP; Start 01/18/17 at 02:00 Atorvastatin Calcium (Lipitor) 40 mg DAILY@21 PO Last administered on 20:32; Admin Dose 40 MG; Start 01/18/17 at 21:00 Bisacodyl (Dulcolax) 10 mg DAILY PRN PO CONSTIPATION; Start 01/18/17 at 02:00 Dexamethasone (Decadron) 4 mg Q6 IV Last administered on 01/22/17 06:09; Admin Dose 4 MG; Start 01/18/17 at 06:00 Senna/Docusate Sodium (Senokot-S) 1 tab DAILY PO Last administered on 07:58; Admin Dose 1 TAB; Start 01/18/17 at 09:00 Famotidine (Pepcid) 20 mg Q12 PO Last administered on 01/22/17 07:57; Admin Dose 20 MG; Start 01/18/17 at 09:00 Hydromorphone HCl (Dilaudid) 2 mg Q4H PRN PO PAIN; Start 01/18/17 at 02:00 Zolpidem Tartrate (Ambien) 5 mg HS PRN PO INSOMNIA; Start 01/19/17 at 11:30 Hydromorphone HCl (Dilaudid) 1 mg Q4H PRN IV PAIN Last administered on 11:27; Admin Dose 1 MG; Start 01/19/17 at 13:00 Oxycodone HCl (Oxycontin) 20 mg Q8 PO Last administered on 01/22/17 06:09; Admin Dose 20 MG; Start 01/19/17 at 12:00 TONY MARX NP Jan 22, 2017 13:43
[2017-01-22 20:00] VITALS: BP 133/64; RESP 16
[2017-01-22] MEDS: ATORVASTATIN 40 MG TAB PO SCH (21:00)
[2017-01-23] MEDS: DEXAMETHASONE 4 MG/ML 1 ML INJ IV SCH ×3 (00:22→13:01)
[2017-01-23] MEDS: HYDROmorphONE 1 MG/ML SYG IV PRN ×2 (00:24→09:39)
[2017-01-23] MEDS: ALBUTEROL/IPRATROPIUM (NEB) 3 ML AMP HHN SCH ×4 (00:50→14:15)
[2017-01-23 01:49] VITALS: BP 117/57; PULSE 84; RESP 18
[2017-01-23] MEDS: oxyCODONE (CR) 10 MG TAB [oxyCONTIN] PO SCH ×2 (06:04→15:41)
[2017-01-23 07:30] VITALS: BP 112/59; RESP 20
[2017-01-23] MEDS: SENNA/DOCUSATE NA (8.6MG/50MG) TAB PO SCH (09:40)
[2017-01-23] MEDS: IBUPROFEN 600 MG TAB PO SCH (09:40)
[2017-01-23] MEDS: FAMOTIDINE 20 MG TAB PO SCH (09:40)
[2017-01-23] MEDS: POLYETHYLENE GLYCOL 17 GM PACKET PO SCH (09:41)
[2017-01-23] MEDS: SALMETEROL/FLUTICASONE 250/50 INHA INH SCH (09:41)
--- NOTE | 2017-01-23 11:02 | CONS ---
Date/Time of Note Date/Time of Note DATE: 01/23/17 TIME: 11:02 Assessment/Plan Assessment/Plan Chief Complaint/Hosp Course 1. 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 -Patient is being followed by oncology. Follow-up with cancer type ID to narrow down the primary site of disease -Patient refused MRI to rule out brain mets. -Follow-up with oncology for further management. 2.T2 pathologic compression fracture -Status post neurosurgery evaluation and recommended patient benefit from kyphoplasty, other recommendation is consideration of radiation if patient becomes symptomatic. -Continue pain medications. Patient is on oxycodone 20 mg oral less IV Dilaudid. 3. Steroid-induced leukocytosis. Currently no indication for antibiotics as urine culture is more likely contaminated. 4. Essential hypertension -Continue antihypertensives. 5. Dyslipidemia. -On statin. 6. Emphysema/chronic obstructive pulmonary disease. -Continue bronchodilators as needed. 7. Intermediate reticulonodular pulmonary opacities suggesting bronchiolitis/ bronchopneumonia. Status post treatment with antibiotics. 8. Anemia, most likely secondary to underlying metastatic process, cannot exclude possible myelophthisic process. -Stable H&H. 9. Progressive debility/chronic pain with #1. -PT eval and treatment. 10. Pulmonary hypertension. Stable. 11. Nicotine use. Cessation advised. 12. Anxiety. -Ambien at bedtime as needed Pepcid for GI prophylaxis SCD for DVT prophylaxis Disposition: Patient with pain requiring continuation of pain meds and this limits her from PT treatment at [facility]. At this time,recommendation is to send patient to low-paced physical therapy at a assisted. Patient was seen in collaboration with . Problems: Consultation Date/Type/Reason Admit Date/Time Jan 18, 2017 at 00:53 Initial Consult Date 01/18/17 Type of Consultation: INTERNAL MEDICINE Referring Provider: NICKI BENOIT MD, [facility] 24 HR Interval Summary Free Text/Dictation Patient with poor participation in PT. She continues to have pain limiting her PT treatment here at [facility]. Exam/Review of Systems Vital Signs Vitals Vital Signs Date Time Temp Pulse Resp B/P Pulse Ox O2 Delivery O2 Flow Rate FiO2 01/23/17 09:12 80 17 93 21 01/23/17 07:30 98.7 112/59 01/23/17 01:49 Nasal Cannula 2.0 Intake and Output 01/22/17 01/22/17 01/23/17 15:00 23:00 07:00 Intake Total 250 ml Balance 250 ml Exam General: Chronically ill looking female, in diffuse generalized pain. HEENT: Normocephalic, Atraumatic, No laceration or hematoma; Eyes: PEERL, Conjunctiva clear, Anicteric sclera Neck: Supple without any lymphadenopathy, nontender, no JVD, no carotid bruits, trachea midline, no thyromegaly Cardiac: S1, S2 auscultated, regular rhythm and rate, no mumurs or gallop Pulmonary: Rhonchi left upper and lower lobes. Diminished breath sound bibasilar. Normal respiratory effort. No wheezing. GI: Abdomen normal to inspection. Soft, non tender, non- distended, no masses, no rebound tenderness or guarding. Bowel sounds active on all four quadrants Genitourinary: Deferred Extremities: With generalized weakness to bilateral lower extremities. No cyanosis, clubbing, or edema. Pulses [2+] bilaterally. Neurologic: Patient is very anxious. Otherwise, alert to person, place, time, and situation. Sensation intact. Skin: Clean,dry, and intact. No ecchymosis, no rashes, or lesions Results Result Diagram: 01/22/1754101/22/17541 Medications Medications Current Medications Ibuprofen (Motrin) 600 mg BID PO Last administered on 01/23/17 09:40; Admin Dose 600 MG; Start 01/18/17 at 09:00 Lactulose (Enulose) 20 gm Q6H PRN PO CONSTIPATION Last administered on 12:10; Admin Dose 20 GM; Start 01/18/17 at 02:00 Ondansetron HCl (Zofran Inj) 4 mg Q6H PRN IV NAUSEA AND/OR VOMITING; Start 01/18/17 at 02:00 Polyethylene Glycol (Miralax) 17 gm BID PO Last administered on 01/23/17 09:41 ; Admin Dose 17 GM; Start 01/18/17 at 09:00 Salmeterol Xinafoate/ Fluticasone (Advair 250/50 Diskus) 1 inh BID INH Last administered on 01/23/17 09:41; Admin Dose 1 INH; Start 01/18/17 at 09:00 Acetaminophen (Tylenol Tab) 650 mg Q6H PRN PO PAIN AND OR ELEVATED TEMP; Start 01/18/17 at 02:00 Atorvastatin Calcium (Lipitor) 40 mg DAILY@21 PO Last administered on 20:32; Admin Dose 40 MG; Start 01/18/17 at 21:00 Bisacodyl (Dulcolax) 10 mg DAILY PRN PO CONSTIPATION; Start 01/18/17 at 02:00 Dexamethasone (Decadron) 4 mg Q6 IV Last administered on 01/23/17 06:04; Admin Dose 4 MG; Start 01/18/17 at 06:00 Senna/Docusate Sodium (Senokot-S) 1 tab DAILY PO Last administered on 09:40; Admin Dose 1 TAB; Start 01/18/17 at 09:00 Famotidine (Pepcid) 20 mg Q12 PO Last administered on 01/23/17 09:40; Admin Dose 20 MG; Start 01/18/17 at 09:00 Zolpidem Tartrate (Ambien) 5 mg HS PRN PO INSOMNIA; Start 01/19/17 at 11:30 Hydromorphone HCl (Dilaudid) 1 mg Q4H PRN IV PAIN Last administered on 09:39; Admin Dose 1 MG; Start 01/19/17 at 13:00 Oxycodone HCl (Oxycontin) 20 mg Q8 PO Last administered on 01/23/17 06:04; Admin Dose 20 MG; Start 01/19/17 at 12:00 TONY MARX NP Jan 23, 2017 11:02
--- NOTE | 2017-01-23 12:10 | CONS ---
Date/Time of Note Date/Time of Note DATE: 01/23/17 TIME: 12:08 Consult Date/Type/Reason Admit Date/Time Jan 18, 2017 at 00:53 Initial Consult Date 01/18/17 Type of Consultation: INTERNAL MEDICINE Ordering Provider: NICKI BENOIT MD, [facility] Subjective Poor activity tolerance Objective pulm-cta max assist Vital Signs Date Time Temp Pulse Resp B/P Pulse Ox O2 Delivery O2 Flow Rate FiO2 01/23/17 09:12 80 17 93 21 01/23/17 07:30 98.7 112/59 01/23/17 01:49 Nasal Cannula 2.0 Intake and Output 01/22/17 01/22/17 01/23/17 14:59 22:59 06:59 Intake Total 250 ml Balance 250 ml Results/Medications Result Diagram: 01/22/17 0542 01/22/17 0542 Medications Current Medications Ibuprofen (Motrin) 600 mg BID PO Last administered on 01/23/17 09:40; Admin Dose 600 MG; Start 01/18/17 at 09:00 Lactulose (Enulose) 20 gm Q6H PRN PO CONSTIPATION Last administered on 12:10; Admin Dose 20 GM; Start 01/18/17 at 02:00 Ondansetron HCl (Zofran Inj) 4 mg Q6H PRN IV NAUSEA AND/OR VOMITING; Start 01/18/17 at 02:00 Polyethylene Glycol (Miralax) 17 gm BID PO Last administered on 01/23/17 09:41 ; Admin Dose 17 GM; Start 01/18/17 at 09:00 Salmeterol Xinafoate/ Fluticasone (Advair 250/50 Diskus) 1 inh BID INH Last administered on 01/23/17 09:41; Admin Dose 1 INH; Start 01/18/17 at 09:00 Acetaminophen (Tylenol Tab) 650 mg Q6H PRN PO PAIN AND OR ELEVATED TEMP; Start 01/18/17 at 02:00 Atorvastatin Calcium (Lipitor) 40 mg DAILY@21 PO Last administered on 20:32; Admin Dose 40 MG; Start 01/18/17 at 21:00 Bisacodyl (Dulcolax) 10 mg DAILY PRN PO CONSTIPATION; Start 01/18/17 at 02:00 Dexamethasone (Decadron) 4 mg Q6 IV Last administered on 01/23/17 06:04; Admin Dose 4 MG; Start 01/18/17 at 06:00 Senna/Docusate Sodium (Senokot-S) 1 tab DAILY PO Last administered on 09:40; Admin Dose 1 TAB; Start 01/18/17 at 09:00 Famotidine (Pepcid) 20 mg Q12 PO Last administered on 01/23/17 09:40; Admin Dose 20 MG; Start 01/18/17 at 09:00 Zolpidem Tartrate (Ambien) 5 mg HS PRN PO INSOMNIA; Start 01/19/17 at 11:30 Hydromorphone HCl (Dilaudid) 1 mg Q4H PRN IV PAIN Last administered on 09:39; Admin Dose 1 MG; Start 01/19/17 at 13:00 Oxycodone HCl (Oxycontin) 20 mg Q8 PO Last administered on 01/23/17 06:04; Admin Dose 20 MG; Start 01/19/17 at 12:00 Assessment/Plan Additional Assessment/Plan Rehab -pathologic spinal fractures and metastasis with radicular back pain. Patient with limited activity tolerance. Rec continued therapies at lower level of care, such as SNF Pain- continue current pain meds Metastatic adenocarcinoma. Anemia. Pneumonia. COPD. Hypertension. Hyperlipidemia. Urinary tract infection. MADAN AMEZCUA MD Jan 23, 2017 12:10
[2017-01-23 14:00] VITALS: BP 124/58; RESP 20
== END 2017-01-23 16:20 | DRG 559 ==
LOC: VRC 00:53
PROVIDERS: ADMIT Physical Medicine & Rehabilitation; ATTEND Internal Medicine Pulmonary Disease
PROC: F07Z9FZ Gait Training/Functional Ambulation Treatment using Assistive, Adaptive, Supportive or Protective Equipment (ICD-10-PCS; principal; 2017-01-18)
PROC: F07Z5FZ Bed Mobility Treatment using Assistive, Adaptive, Supportive or Protective Equipment (ICD-10-PCS; 2017-01-18)
PROC: F07Z8FZ Transfer Training Treatment using Assistive, Adaptive, Supportive or Protective Equipment (ICD-10-PCS; 2017-01-18)
PROC: F08Z2FZ Grooming/Personal Hygiene Treatment using Assistive, Adaptive, Supportive or Protective Equipment (ICD-10-PCS; 2017-01-18)
PROC: F08Z0FZ Bathing/Showering Techniques Treatment using Assistive, Adaptive, Supportive or Protective Equipment (ICD-10-PCS; 2017-01-18)
PROC: F08Z1FZ Dressing Techniques Treatment using Assistive, Adaptive, Supportive or Protective Equipment (ICD-10-PCS; 2017-01-18)
DX: M84.58XD Pathological fracture in neoplastic disease, other specified site, subsequent encounter for fracture with routine healing (principal); J18.0 Bronchopneumonia, unspecified organism; C79.51 Secondary malignant neoplasm of bone; C77.1 Secondary and unspecified malignant neoplasm of intrathoracic lymph nodes; C79.70 Secondary malignant neoplasm of unspecified adrenal gland; N39.0 Urinary tract infection, site not specified; B96.89 Other specified bacterial agents as the cause of diseases classified elsewhere; J21.9 Acute bronchiolitis, unspecified; I10 Essential (primary) hypertension; C80.1 Malignant (primary) neoplasm, unspecified; D63.0 Anemia in neoplastic disease; E78.5 Hyperlipidemia, unspecified; F17.210 Nicotine dependence, cigarettes, uncomplicated; R53.1 Weakness; D72.828 Other elevated white blood cell count; J43.9 Emphysema, unspecified; G89.29 Other chronic pain; I27.20 Pulmonary hypertension, unspecified; F41.9 Anxiety disorder, unspecified; T38.0X5A Adverse effect of glucocorticoids and synthetic analogues, initial encounter
CPT/HCPCS: 80053; 81001; 81003; 85025; 85610; 85730; 87086; 94640; 94664; 97110; 97112; 97163; 97166; 97530; 97535; 97542; J1100; J1170